=== PATIENT | male | born 1995 | race Caucasian/White ===

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

== ENCOUNTER 2017-06-03 20:24 | Emergency (ER) | payer OTHER ==
--- OUTSIDE RECORDS SUMMARY | 2017-06-03 20:58 | XMS REPORT ---
:1995 External Reference #:[id number] Author Organization [facility] Address [address] [place] [address] [place] [address] Phone [phone] Care Team Providers Name Role Phone Basilio Nielsen III, M.D. 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 Active Onset: 03/12/2012 Attention deficit hyperactivity Aníbal Charles M.D. Active disorder Onset: 03/05/2015 Non-alcoholic fatty liver Anbíal Charles M.D. Active Onset: 02/09/2017 Gastroesophageal reflux disease Basilio Nielsen III, M.D. Active Family History Date Family Member(s) Problem(s) Comments Father in 2001 from brain tumor Social History Type Date Description Comments Smoke-Free Home is smoke-free General Mother remarried. Mom, step dad, brother, sister, and cousin live at home Smoking Patient has never smoked Allergies, Adverse Reactions, Alerts Date Description Reaction Status Severity Comments 02/12/2008 No Drug Allergies active Medications Medication Date Status Form Strength Qnty SIG Indications Ordering Provider Azithromycin Hx Tablets 250mg 6tabs 2 today J20.9 Basilio Preston 018 - then Morales, 1\\day nestor ABREU M.D. 018 [address]op[address] Table[address] 40mg 30tabs 1 by R07.9 Naresh Sodium 018 mouth Sharkness, every C.P.N.P day K21.9 Onetouch Ultra 05/02/2017 Active Strips 100units use as R73.03 Naresh Blue directed Sharkness, C.P.N.P Metformin HCL ER 05/02/2017 Active Tablets ER 50 60tabs Take 1 R73.03 Naresh 24HR 0m tablet Sharkness, g with C.P.N.P dinner once daily for 2 weeks then increase to 2 tablets by mouth once daily at dinner True Metrix Blood 05/02/2017 Active Strips 100units please use Naresh Glucosetest to test Sharkness, Strips blood C.P.N.P glucose twice daily Dx=R73.03 True Metrix Go 05/02/2017 Active Kit w/ Use as R73.03 Naresh Blood Glucose De directed Sharkness, Meter vi C.P.N.P ce Truedraw Lancing 05/02/2017 Active Misc 1units Use as R73.03 Naresh Device directed Sharkness, C.P.N.P Vitamin D 04/29/2017 Active Capsules 20 30caps 1 by mouth Naresh 00 every day Sharkness, Un C.P.N.P it Metformin HCL ER 05/02/2017 - Hx Tablets ER 50 60tabs Please R73.03 Naresh (Mod) 05/02/2017 24HR 0m take 1 Sharkness, g tablet in C.P.N.P the evening once daily for 2 weeks and then increase to two tablets once daily in the evening Onetouch Delica 05/02/2017 - Hx Misc 30 100units Use as R73.03 Naresh Peoplesets Fine 30G 05/02/2017 G directed Sharkness, C.P.N.P Onetouch Ultra 05/02/2017 - Hx Kit w/ 1units use as R73.03 Naresh Mini 05/02/2017 De directed Sharkness, vi C.P.N.P ce Polyethylene 04/19/2017 - Hx Powder 33 527gm 4-5 K59.00 Henny Glycol 3350 04/26/2017 50 capfuls in Jeffery, D.O. NF 20 ounces of Gatorade today then 1 cupful in liquid daily for 7 days Cephalexin 02/28/2017 - Hx Capsules 50 30caps 1 tab 3 I88.9 Aníbal 03/10/2017 0m times a Sendek, g day for 10 M.D. days Econazole Nitrate 08/30/2016 - Hx Cream 1% 85gm apply B35.4 Basilio Y. 09/26/2016 topically Lambert, once or III, M.D. twice daily Methylphenidate 06/30/2016 - Hx Tablets ER 36 2 PO by F90.1 Aníbal HCL ER 09/26/2016 24HR mg mouth each Sendek, morning M.D. Sertraline HCL 06/30/2016 - Hx Tablets 50 1 by mouth Aníbal 09/26/2016 mg every day Sendek, M.D. Methylphenidate 05/02/2016 - Hx Tablets ER 54 30tabs 1 by mouth F90.1 Aníbal HCL ER 06/30/2016 mg every day Sendek, M.D. Amoxicillin/Clavu 04/08/2016 - Hx Tablets 87 20tabs 1 tablet L04.0 Naresh lanate Potassium 04/18/2016 5- twice Sharkness, 12 daily for C.P.N.P 5m 10 days g Lansoprazole 02/23/2016 - Hx Capsules 30 30caps Take One R07.9 Basilio Y. 05/11/2017 DR mg Capsule By Lambert, Mouth III, M.D. Every Day K21.9 Naproxen 10/05/2015 - Hx Tablets 500mg 30tabs 1 tablet M54.5 Naresh 10/12/2015 by mouth Sharkness, twice C.P.N.P daily with food Ciprodex 02/27/2015 - Hx Suspension 0.3-0.1 7.500ml 4 drops H60.8x Naresh 03/06/2015 % twice 1 Sharkness, daily for C.P.N.P 5 - 7 days Methylphenidate 02/01/2013 - Hx Tablets ER 36mg 60tabs 2 by F90.1 Aníbal HCL ER 05/02/2016 mouth Sendek, every day M.D. at in the morning Clindamycin/Benzo 02/01/2013 - Hx Gel 1-5% 50gm apply bid 706.1 Aníbal yl Peroxide 04/02/2013 to the pam Charles M.D. Naproxen 08/08/2012 - Hx Tablets 500mg 14tabs 1 po bid 959.7 Richard 08/17/2012 feliciano Pal M.D. Famotidine 08/08/2012 - Hx Tablets 20mg 60tabs 1 po bid 959.7 Richard 08/17/2012 Ren Pal Methylphenidate 11/17/2011 - Hx Tablets ER 54mg 30tabs 1 po qd 314.01 Aníbal HCL ER 02/01/2013 Ren Charles Lotrisone 04/26/2011 - Hx Cream 1-0.05% 45gm apply bid Aníbal 05/10/2011 to jie Charles M.D. [facility] Methylphenidate 04/22/2011 - Hx Tablets ER 36mg 30tabs 1 po qd 314.01 Aníbal HCL ER 11/17/2011 Ren Charles Methylphenidate 03/19/2011 - Hx Tablets ER 27mg 30tabs 1 po at Naresh HCL ER 04/22/2011 am Kole C.P.N.P Nexium 02/23/2011 - Hx Capsules DR 20mg 30caps 1 PO qd 530.81 Aníbal 02/23/2011 Ren Charles Omeprazole 02/23/2011 - Hx Capsules DR 20mg 30caps 1 PO qd 530.81 Aníbal 04/24/2011 Ren Charles Mentax 02/16/2009 - Hx Cream 1% 30gm apply bid 110.5 Aníbal 03/02/2009 to the natalie Charles M.D. Cefzil 05/18/2007 - Hx Suspension 250mg/5 200cc 2 TSP PO Shannan 05/28/2007 ML bid Kirill Umanzor.P.N.P. Keflex 02/13/2007 - Hx Tablets 500mg 20tabs 1 po bid 684 Shannan 02/23/2007 Noé C.P.N.P. Ibuprofen 02/13/2007 - Hx Suspension 100mg/5 240units 4 TSP PO 684 Shannan 02/23/2007 ML Q8H prn Noé, Fever C.P.N.P. Augmentin ES-600 04/04/2006 - Hx Suspension 600mg;4 150ml 1 and 1/2 382.9 Aníbal 04/14/2006 2.9mg/5 tsp bid Sendek, ML M.D. Zithromax 03/29/2006 - Hx Suspension 200mg/5 30ml 8 ml day 461.9 Aníbal 04/03/2006 ML 1 Sendek, M.D. 4 ml q d for days Vyvanse - Hx Capsules 70mg 1 capsule Unknown 11/28/2016 once daily Medications Administered in Office Medication Date Status Form Strength Qnty SIG Indications Ordering Provider TB Mary Test 11/12/18 Administered Injection Shannan Polly Noé, C.P.N.P. Immunizations CPT Code Status Date Vaccine Lot # [id number] Given 04/21/2017 Flu Inj Quadrivalent .5ml Preserve Free [id number] 88016 Given 01/20/2015 Flu Inj Quadrivalent .5ml Preserve Free [id number] 74053 Given 03/25/2014 Meningococcal A,C,Y,W135 (Menactra) Preservative [id number] Free 49479 Given 03/25/2014 Flu Mist Quadrivalent [id number] 34664 Given 10/29/2013 HPV 4 Gardasil 4 [id number] 07338 Given 03/18/2013 Flu Mist Quadrivalent [id number] 18756 Given 03/18/2013 HPV 4 Gardasil 4 [id number] 44406 Given 03/12/2012 HPV 4 Gardasil 4 [id number] 11588 Given 03/12/2012 Flu Vacc Nasal Mist Trivalent (FluMist) [id number] 78588 Given 02/23/2011 Flu Vacc Nasal Mist Trivalent (FluMist) [id number] 01972 Given 02/23/2011 Hepatitis A Vaccine Pediatric/Adolescent 2 Dose [id number] Schedule 47987 Given 02/17/2010 Flu Vacc Nasal Mist Trivalent (FluMist) [id number] 20948 Given 02/17/2010 Hepatitis A Vaccine Pediatric/Adolescent 2 Dose [id number] Schedule 36715 Given 02/16/2009 Meningococcal A,C,Y,W135 (Menactra) Preservative [id number] Free 15501 Given 02/16/2009 TdaP Immunization Age 7+ [id number] 22443 Given 02/16/2009 Flu Vacc Nasal Mist Trivalent (FluMist) [id number] 65813 Given 02/12/2008 Flu Vacc Nasal Mist Trivalent (FluMist) [id number] 43534 Given 02/12/2008 Varicella (Chicken Pox) Immunization [id number] 83583 Given 12/18/2001 Poliomyelitis Immunization 58641 Given 12/18/2001 MMR Virus Immunization 55300 Given 12/18/2001 DTaP Immunization under age 7 13381 Given 03/11/1999 DTaP & Hib Immunization 50182 Given 03/11/1999 Oral Poliovirus Immunization 39099 Given 11/12/1998 Varicella (Chicken Pox) Immunization 43518 Given 11/12/1998 MMR Virus Immunization 74330 Given 05/05/1998 DTaP Immunization under age 7 62508 Given 05/05/1998 Hib/Hep B Combination Vaccine 02282 Given 03/03/1998 Hib Immunization 79360 Given 03/03/1998 Poliomyelitis Immunization 66855 Given 03/03/1998 DTaP Immunization under age 7 23310 Given 01/05/1998 Hib/Hep B Combination Vaccine 44248 Given 01/05/1998 Poliomyelitis Immunization 92916 Given 01/05/1998 DTaP Immunization under age 7 87133 Given 1997 Hepatitis B Imm Age 0 to 19yr Vital Signs Date Vital Result Comment 05/19/2017 Weight 295.25 lb Weight in kg's 133.925 Weight Percentile >97th Body Temperature 98.3 F Heart Rate 100 /min BP Systolic 136 mmHg BP Diastolic 78 mmHg O2 % BldC Oximetry 98 % 05/02/2017 Height 69.75 inches 5'9.75" Height Percentile 52 % Weight 306.12 lb Weight in kg's 138.858 Weight Percentile >97th Heart Rate 69 /min BP Systolic 129 mmHg BP Diastolic 61 mmHg BMI (Body Mass Index) 44.2 kg/m2 Body Mass Index Percentile 99 % 04/21/2017 Height 69.5 inches 5'9.50" Height Percentile 49 % Weight 303.00 lb Weight in kg's 137.441 Weight Percentile >97th Heart Rate 84 /min BP Systolic 141 mmHg BP Diastolic 83 mmHg BMI (Body Mass Index) 44.1 kg/m2 Body Mass Index Percentile 99 % Right ear audiology results 20 db Left ear audiology results 20 db Left Visual Acuity Distance 20/20 Right Visual Acuity Distance 20/25-2 04/19/2017 Weight 309.38 lb Weight in kg's 140.333 Weight Percentile >97th Body Temperature 98.7 F Heart Rate 89 /min BP Systolic 138 mmHg BP Diastolic 82 mmHg 02/28/2017 Weight 299.00 lb Weight in kg's 135.626 Weight Percentile >97th Body Temperature 98.8 F 02/09/2017 Height 69 inches 5'9" Height Percentile 42 % Weight 299.00 lb Weight in kg's 135.626 Weight Percentile >97th Heart Rate 69 /min BP Systolic 131 mmHg BP Diastolic 51 mmHg BMI (Body Mass Index) 44.1 kg/m2 Body Mass Index Percentile 99 % 02/01/2017 Weight 302.00 lb Weight in kg's 136.987 Weight Percentile >97th Body Temperature 98.7 F 11/28/2016 Weight 290.00 lb Weight in kg's 131.544 09/26/2016 Weight 288.12 lb Weight in kg's 130.694 Weight Percentile >97th Body Temperature 99.1 F Heart Rate 112 /min O2 % BldC Oximetry 98 % 08/30/2016 Weight 186.00 lb Weight in kg's 84.370 Weight Percentile 87th Body Temperature 98.4 F 06/18/2016 Height 69 inches 5'9" Height Percentile 43 % Weight 287.00 lb w/clothes/no shoes Weight in kg's 130.183 Weight Percentile >97th Heart Rate 74 /min BP Systolic 144 mmHg BP Diastolic 79 mmHg Blood Pressure Percentile 98 % BMI (Body Mass Index) 42.4 kg/m2 Body Mass Index Percentile 99 % 06/07/2016 Weight 286.00 lb Weight in kg's 129.730 Weight Percentile >97th Body Temperature 98.5 F 05/30/2016 Height 69 inches 5'9" Height Percentile 43 % Weight 284.00 lb Weight in kg's 128.822 Weight Percentile >97th Heart Rate 71 /min BP Systolic 128 mmHg BP Diastolic 74 mmHg Blood Pressure Percentile 74 % BMI (Body Mass Index) 41.9 kg/m2 Body Mass Index Percentile 99 % 04/20/2016 Height 69.25 inches 5'9.25" Height Percentile 47 % Weight 281.00 lb Weight in kg's 127.462 Weight Percentile >97th Heart Rate 84 /min BP Systolic 144 mmHg BP Diastolic 80 mmHg Blood Pressure Percentile 98 % BMI (Body Mass Index) 41.2 kg/m2 Body Mass Index Percentile 99 % Right ear audiology results 20 db Left ear audiology results 20 db Left Visual Acuity Distance 20/25-1 Right Visual Acuity Distance 20/20 04/08/2016 Weight 286.31 lb Weight in kg's 129.871 Weight Percentile >97th Body Temperature 97.1 F 03/24/2016 Height 69.25 inches 5'9.25" Height Percentile 47 % Weight 282.38 lb Weight in kg's 128.085 Weight Percentile >97th Heart Rate 94 /min BP Systolic 137 mmHg BP Diastolic 77 mmHg Blood Pressure Percentile 93 % BMI (Body Mass Index) 41.4 kg/m2 Body Mass Index Percentile 99 % 02/23/2016 Height 69.25 inches 5'9.25" Height Percentile 48 % Weight 277.50 lb Weight in kg's 125.874 Weight Percentile >97th Heart Rate 108 /min BP Systolic 158 mmHg BP Diastolic 84 mmHg Blood Pressure Percentile 99 % BMI (Body Mass Index) 40.7 kg/m2 Body Mass Index Percentile 99 % 02/08/2016 Height 68.75 inches 5'8.75" Height Percentile 41 % Weight 280.25 lb Weight in kg's 127.121 Weight Percentile >97th Heart Rate 101 /min BP Systolic 144 mmHg BP Diastolic 90 mmHg Blood Pressure Percentile 98 % BMI (Body Mass Index) 41.7 kg/m2 Body Mass Index Percentile 99 % 10/21/2015 Height 68.75 inches 5'8.75" Height Percentile 42 % Weight 271.00 lb Weight in kg's 122.926 Weight Percentile >97th Heart Rate 73 /min BP Systolic 138 mmHg BP Diastolic 70 mmHg Blood Pressure Percentile 95 % BMI (Body Mass Index) 40.3 kg/m2 Body Mass Index Percentile 99 % 10/05/2015 Weight 267.00 lb Weight in kg's 121.111 Weight Percentile >97th Body Temperature 98.2 F Heart Rate 90 /min BP Systolic 142 mmHg BP Diastolic 87 mmHg Blood Pressure Percentile 0 % 07/07/2015 Weight 266.25 lb Weight in kg's 120.771 Weight Percentile >97th Body Temperature 98.8 F 04/07/2015 Height 69 inches 5'9" Height Percentile 48 % Weight 262.00 lb Weight in kg's 118.843 Weight Percentile >97th Heart Rate 77 /min BP Systolic 124 mmHg BP Diastolic 67 mmHg Blood Pressure Percentile 66 % BMI (Body Mass Index) 38.7 kg/m2 Body Mass Index Percentile 99 % 03/05/2015 Weight 262.50 lb Weight in kg's 119.070 Weight Percentile >97th Body Temperature 97.2 F Heart Rate 86 /min BP Systolic 148 mmHg BP Diastolic 86 mmHg Blood Pressure Percentile 0 % 02/27/2015 Weight 258.25 lb Weight in kg's 117.142 Weight Percentile >97th Body Temperature 97.6 F 01/20/2015 Height 68.25 inches 5'8.25" Height Percentile 39 % Weight 261.00 lb Weight in kg's 118.390 Weight Percentile >97th Heart Rate 88 /min BP Systolic 132 mmHg BP Diastolic 79 mmHg Blood Pressure Percentile 89 % BMI (Body Mass Index) 39.4 kg/m2 Body Mass Index Percentile 99 % 06/30/2014 Weight 245.00 lb Weight in kg's 111.132 Weight Percentile >97th Body Temperature 97.3 F Heart Rate 69 /min O2 % BldC Oximetry 99 % 06/26/2014 Height 68.25 inches 5'8.25" Height Percentile 43 % Weight 245.00 lb Weight in kg's 111.132 Weight Percentile >97th Heart Rate 71 /min BP Systolic 130 mmHg BP Diastolic 68 mmHg Blood Pressure Percentile 87 % BMI (Body Mass Index) 37.0 kg/m2 Body Mass Index Percentile 99 % 03/25/2014 Height 68 inches 5'8" Height Percentile 42 % Weight 261.00 lb Weight in kg's 118.390 Weight Percentile >97th Heart Rate 88 /min BP Systolic 123 mmHg BP Diastolic 70 mmHg Blood Pressure Percentile 71 % BMI (Body Mass Index) 39.7 kg/m2 Body Mass Index Percentile 99 % 10/29/2013 Weight 245.00 lb Weight in kg's 111.132 Weight Percentile >97th Body Temperature 98.0 F 07/30/2013 Weight 226.00 lb Weight in kg's 102.51 Weight Percentile >97th Body Temperature 98.5 F Heart Rate 84 /min O2 sats BP Systolic 128 mmHg BP Diastolic 72 mmHg Blood Pressure Percentile 0 % 07/11/2013 Weight 225.00 lb Weight in kg's 102.06 Weight Percentile >97th Body Temperature 98.9 F Heart Rate 100 /min O2 % BldC Oximetry 97 % 03/18/2013 Height 66.25 inches 5'6.25" Height Percentile 35 % Weight 205.50 lb Weight in kg's 93.215 Weight Percentile >97th Heart Rate 90 /min BP Systolic 125 mmHg BP Diastolic 68 mmHg Blood Pressure Percentile 85 % BMI (Body Mass Index) 32.9 kg/m2 Body Mass Index Percentile 98 % 02/01/2013 Height 66 inches 5'6" Height Percentile 34 % Weight 203.00 lb Weight in kg's 92.081 Weight Percentile >97th Heart Rate 80 /min BP Systolic 132 mmHg BP Diastolic 72 mmHg Blood Pressure Percentile 95 % BMI (Body Mass Index) 32.8 kg/m2 Body Mass Index Percentile 98 % 01/15/2013 Weight 201.00 lb Weight in kg's 91.174 Weight Percentile >97th Body Temperature 97.0 F 10/17/2012 Height 65.75 inches 5'5.75" Height Percentile 37 % Weight 206.00 lb Weight in kg's 93.442 Weight Percentile >97th Heart Rate 76 /min BP Systolic 136 mmHg BP Diastolic 84 mmHg Blood Pressure Percentile 0 % BMI (Body Mass Index) 33.5 kg/m2 Body Mass Index Percentile 99 % 08/08/2012 Weight 197.50 lb Weight in kg's 89.586 Weight Percentile >97th Body Temperature 97.8 F Heart Rate 64 /min Blood Pressure Percentile 0 % 03/12/2012 Height 64 inches 5'4" Height Percentile 33 % Weight 182.50 lb Weight in kg's 82.782 Weight Percentile >97th Heart Rate 76 /min BP Systolic 120 mmHg BP Diastolic 58 mmHg Blood Pressure Percentile 79 % BMI (Body Mass Index) 31.3 kg/m2 Body Mass Index Percentile 98 % 01/19/2012 Weight 180.00 lb Weight in kg's 81.648 Weight Percentile >97th Body Temperature 97.7 F Blood Pressure Percentile 0 % 11/17/2011 Height 64 inches 5'4" Height Percentile 43 % Weight 178.00 lb Weight in kg's 80.741 Weight Percentile >97th Body Temperature 98.8 F Heart Rate 72 /min Respiratory Rate 20 /min BP Systolic 130 mmHg BP Diastolic 60 mmHg Blood Pressure Percentile 96 % BMI (Body Mass Index) 30.6 kg/m2 Body Mass Index Percentile 98 % 09/13/2011 Weight 174.00 lb Weight in kg's 78.926 Weight Percentile 97th Body Temperature 98.1 F Heart Rate 88 /min BP Systolic 122 mmHg BP Diastolic 68 mmHg Blood Pressure Percentile 0 % 05/25/2011 Weight 167.00 lb Weight in kg's 75.751 Weight Percentile 97th BP Systolic 130 mmHg left arm BP Diastolic 72 mmHg left arm Blood Pressure Percentile 0 % BP Systolic Recheck 130 mmHg right arm BP Diastolic Recheck 70 mmHg right arm 04/22/2011 Height 62.5 inches 5'2.50" Height Percentile 46 % Weight 168.50 lb Weight in kg's 76.432 Weight Percentile >97th Heart Rate 80 /min BP Systolic 138 mmHg BP Diastolic 60 mmHg Blood Pressure Percentile 99 % BMI (Body Mass Index) 30.3 kg/m2 Body Mass Index Percentile 98 % 02/23/2011 Height 61.75 inches 5'1.75" Height Percentile 43 % Weight 166.50 lb Weight in kg's 75.524 Weight Percentile >97th Heart Rate 88 /min BP Systolic 132 mmHg BP Diastolic 72 mmHg Blood Pressure Percentile 98 % BMI (Body Mass Index) 30.7 kg/m2 Body Mass Index Percentile 98 % 07/08/2010 Weight 151.00 lb Weight in kg's 68.494 Weight Percentile 97th Body Temperature 98.3 F BP Systolic 108 mmHg BP Diastolic 70 mmHg Blood Pressure Percentile 0 % 07/03/2010 Weight 148.50 lb Weight in kg's 67.360 Weight Percentile 96th Body Temperature 97.1 F Blood Pressure Percentile 0 % 02/17/2010 Height 59.25 inches 4'11.25" Height Percentile 48 % Weight 142.00 lb Weight in kg's 64.411 Weight Percentile 96th Heart Rate 80 /min BP Systolic 104 mmHg BP Diastolic 66 mmHg Blood Pressure Percentile 39 % BMI (Body Mass Index) 28.4 kg/m2 Body Mass Index Percentile 98 % 2009 Weight 139.50 lb Weight in kg's 63.277 Weight Percentile 97th Body Temperature 97.5 F Blood Pressure Percentile 0 % 02/16/2009 Height 57 inches 4'9" Height Percentile 49 % Weight 124.00 lb Weight in kg's 56.246 Weight Percentile >97th Heart Rate 80 /min BP Systolic 132 mmHg BP Diastolic 64 mmHg Blood Pressure Percentile 99 % BMI (Body Mass Index) 26.8 kg/m2 Body Mass Index Percentile 99 % 02/12/2008 Height 54.25 inches 4'6.25" Height Percentile 38 % Weight 109.00 lb Weight in kg's 49.442 Weight Percentile >97th Heart Rate 100 /min BP Systolic 120 mmHg BP Diastolic 60 mmHg BMI (Body Mass Index) 26.0 kg/m2 Body Mass Index Percentile 97 % 05/16/2007 Weight 95.00 lb Weight in kg's 43.092 Weight Percentile >95th Body Temperature 96.2 F 02/13/2007 Weight 93.00 lb Weight in kg's 42.185 Weight Percentile >95th Body Temperature 97.4 F 12/07/2006 Height 51 inches 4'3" Height Percentile 24 % Weight 87.00 lb Weight in kg's 39.463 Weight Percentile >95th Heart Rate 100 /min BP Systolic 116 mmHg BP Diastolic 60 mmHg BMI (Body Mass Index) 23.5 kg/m2 Body Mass Index Percentile 95 % 04/04/2006 Weight 78.00 lb Weight in kg's 35.381 Weight Percentile >95th Body Temperature 98.8 F 03/29/2006 Weight 78.00 lb Weight in kg's 35.381 Weight Percentile >95th Body Temperature 98.4 F Results Test Date Test Result H/L Range Note CBC Auto Diff 04/26/2017 White Blood Count 10.0 10^3/uL 3.5-10.8 Red Blood Count 5.67 10^6/uL High 4.0-5.4 Hemoglobin 15.5 g/dL 14.0-18.0 Hematocrit 47 % 42-52 Mean Corpuscular Volume 82 fL 80-94 Mean Corpuscular Hemoglobin 27 pg 27-31 Mean Corpuscular HGB Conc 33 g/dL 31-36 Red Cell Distribution Width 14 % 10.5-15 Platelet Count 264 10^3/uL 150-450 Mean Platelet Volume 9 um3 7.4-10.4 Abs Neutrophils 6.0 10^3/uL 1.5-7.7 Abs Lymphocytes 2.9 10^3/uL 1.0-4.8 Abs Monocytes 0.8 10^3/uL 0-0.8 Abs Eosinophils 0.2 10^3/uL 0-0.6 Abs Basophils 0 10^3/uL 0-0.2 Abs Nucleated RBC 0 10^3/uL Granulocyte % 60.4 % 38-83 Lymphocyte % 29.2 % 25-47 Monocyte % 7.6 % 1-9 Eosinophil % 2.4 % 0-6 Basophil % 0.4 % 0-2 Nucleated Red Blood Cells % 0 Comp Metabolic Panel 04/26/2017 Chloride 102 mmol/L 101-111 Co2 Carbon Dioxide 27 mmol/L 22-32 Glucose 105 mg/dL High 70-100 Blood Urea Nitrogen 13 mg/dL 6-24 Creatinine 0.65 mg/dL Low 0.67-1.17 BUN/Creatinine Ratio 20.0 8-20 Calcium 9.7 mg/dL 8.6-10.3 Total Protein 6.7 g/dL 6.4-8.9 Albumin 4.2 g/dL 3.2-5.2 Globulin 2.5 g/dL 2-4 Albumin/Globulin Ratio 1.7 1-3 Total Bilirubin 0.60 mg/dL 0.2-1.0 Alkaline Phosphatase 100 U/L 34-104 Alt 51 U/L 7-52 Ast 31 U/L 13-39 Egfr Non- 158.3 >60 Egfr 203.5 >60 1 Sodium 136 mmol/L 133-145 Potassium 4.4 mmol/L 3.5-5.0 Anion Gap 7 mmol/L 2-11 Laboratory test finding 04/26/2017 Hemoglobin A1c (Glyco HGB) 6.3 % High 4.0-5.6 2 Insulin Level 41.2 mcIU/mL 2.6 - 24.9 3 Lipid Profile (Trig/Chol/HDL) 04/26/2017 Triglycerides 106 mg/dL 4 Cholesterol 137 mg/dL 5 HDL Cholesterol 32.8 mg/dL 6 LDL Cholesterol 83 mg/dL 7 Laboratory test finding 04/26/2017 TSH (Thyroid Stim Horm) 2.21 mcIU/mL 0.34-5.60 Vitamin D Total 25(Oh) 19.2 ng/mL Low 20-50 Laboratory test 03/04/2017 D Dimer Quantitative < 200 ng/mL Less Than 230 8 finding CBC Auto Diff 03/04/2017 White Blood Count 7.7 10^3/uL 3.5-10.8 Red Blood Count 5.51 10^6/uL High 4.0-5.4 Hemoglobin 15.2 g/dL 14.0-18.0 Hematocrit 45 % 42-52 Mean Corpuscular Volume 81 fL 80-94 Mean Corpuscular Hemoglobin 28 pg 27-31 Mean Corpuscular HGB Conc 34 g/dL 31-36 Red Cell Distribution Width 14 % 10.5-15 Platelet Count 252 10^3/uL 150-450 Mean Platelet Volume 9 um3 7.4-10.4 Abs Neutrophils 4.5 10^3/uL 1.5-7.7 Abs Lymphocytes 2.2 10^3/uL 1.0-4.8 Abs Monocytes 0.8 10^3/uL 0-0.8 Abs Eosinophils 0.2 10^3/uL 0-0.6 Abs Basophils 0 10^3/uL 0-0.2 Abs Nucleated RBC 0 10^3/uL Granulocyte % 58.6 % 38-83 Lymphocyte % 28.2 % 25-47 Monocyte % 10.7 % High 1-9 Eosinophil % 2.0 % 0-6 Basophil % 0.5 % 0-2 Nucleated Red Blood Cells % 0.1 Laboratory test finding 03/04/2017 Partial Thrombo Time PTT 29.7 seconds 26.0-36.3 Inr/Protime 03/04/2017 Inr 1.03 0.89-1.11 Laboratory test finding 03/04/2017 B-Type Natriuretic 17 pg/mL 9 Peptide BNP CKMB 03/04/2017 CKMB ng/mL 4.9 ng/mL 0.6-6.3 Laboratory test finding 03/04/2017 Magnesium 2.0 mg/dL 1.9-2.7 Creatine Kinase(CK) 201 U/L 10-223 Troponin-I (TnI) 0.03 ng/mL <0.04 Myoglobin 44.0 ng/mL 17.4-105.7 Comp Metabolic Panel 03/04/2017 Sodium 134 mmol/L 133-145 Potassium 3.7 mmol/L 3.5-5.0 Chloride 103 mmol/L 101-111 Co2 Carbon Dioxide 24 mmol/L 22-32 Anion Gap 7 mmol/L 2-11 Glucose 129 mg/dL High 70-100 Blood Urea Nitrogen 13 mg/dL 6-24 Creatinine 0.62 mg/dL Low 0.67-1.17 BUN/Creatinine Ratio 21.0 High 8-20 Calcium 9.7 mg/dL 8.6-10.3 Total Protein 7.2 g/dL 6.4-8.9 Albumin 4.4 g/dL 3.2-5.2 Globulin 2.8 g/dL 2-4 Albumin/Globulin Ratio 1.6 1-3 Total Bilirubin 0.40 mg/dL 0.2-1.0 Alkaline Phosphatase 91 U/L 34-104 Alt 39 U/L 7-52 Ast 26 U/L 13-39 Egfr Non- 167.1 >60 Egfr 214.9 >60 10 Laboratory test finding 03/04/2017 Lactic Acid 1.5 mmol/L 0.5-2.0 11 Laboratory test finding 03/04/2017 Troponin-I (TnI) 0.04 ng/mL High < 0.04 12 Xray 02/09/2017 Right clavicle negative Laboratory test finding 09/26/2016 TSH (Thyroid Stim 3.14 mcIU/mL 0.34- 5.60 Horm) CKMB 09/26/2016 CKMB ng/mL 4.4 ng/mL 0.6-6.3 CBC Auto Diff 09/26/2016 White Blood Count 10.5 10^3/uL 3.5-10.8 Red Blood Count 5.50 10^6/uL High 4.0-5.4 Hemoglobin 14.7 g/dL 14.0-18.0 Hematocrit 44 % 42-52 Mean Corpuscular Volume 80 fL 80-94 Mean Corpuscular Hemoglobin 27 pg 27-31 Mean Corpuscular HGB Conc 33 g/dL 31-36 Red Cell Distribution Width 13 % 10.5-15 Platelet Count 275 10^3/uL 150-450 Mean Platelet Volume 9 um3 7.4-10.4 Abs Neutrophils 5.8 10^3/uL 1.5-7.7 Abs Lymphocytes 3.5 10^3/uL 1.0-4.8 Abs Monocytes 1.1 10^3/uL High 0-0.8 Abs Eosinophils 0.1 10^3/uL 0-0.6 Abs Basophils 0.1 10^3/uL 0-0.2 Abs Nucleated RBC 0.02 10^3/uL Granulocyte % 54.9 % 38-83 Lymphocyte % 32.8 % 25-47 Monocyte % 10.4 % High 1-9 Eosinophil % 1.3 % 0-6 Basophil % 0.6 % 0-2 Nucleated Red Blood Cells % 0.2 Inr/Protime 09/26/2016 Inr 0.98 0.89-1.11 Laboratory test finding 09/26/2016 Partial Thrombo Time 32.9 seconds 26.0 -36.3 PTT D Dimer Quantitative < 200 ng/mL Less Than 230 13 B-Type Natriuretic Peptide BNP 28 pg/mL 14 Lactic Acid 1.4 mmol/L 0.5-2.0 15 Urinalysis Profile 09/26/2016 Urine Color Yellow Urine Appearance Cloudy Urine Specific Terrell 1.025 1.010-1.030 Urine pH 8.0 5-9 Urine Urobilinogen Negative Negative Urine Ketones Negative Negative Urine Protein 1+(30 mg/dL) Negative Urine Leukocytes Negative Negative Urine Blood Negative Negative Urine Nitrite Negative Negative Urine Bilirubin 1+ Negative Urine Glucose Negative Negative Urine White Blood Cell Absent Absent Urine Red Blood Cell Absent Absent Urine Bacteria Absent Absent Laboratory test finding 09/26/2016 Magnesium 2.0 mg/dL 1.9-2.7 Lipase 22 U/L 11.0-82.0 Creatine Kinase(CK) 250 U/L High 10-223 C Reactive Protein 2.27 mg/L < 5.00 16 Troponin-I (TnI) 0.01 ng/mL <0.04 17 Comp Metabolic Panel 09/26/2016 Sodium 138 mmol/L 133-145 Potassium 3.6 mmol/L 3.5-5.0 Chloride 104 mmol/L 101-111 Co2 Carbon Dioxide 25 mmol/L 22-32 Anion Gap 9 mmol/L 2-11 Glucose 97 mg/dL 70-100 Blood Urea Nitrogen 11 mg/dL 6-24 Creatinine 0.61 mg/dL Low 0.67-1.17 BUN/Creatinine Ratio 18.0 8-20 Calcium 9.1 mg/dL 8.6-10.3 Total Protein 6.9 g/dL 6.4-8.9 Albumin 4.2 g/dL 3.2-5.2 Globulin 2.7 g/dL 2-4 Albumin/Globulin Ratio 1.6 1-3 Total Bilirubin 0.30 mg/dL 0.2-1.0 Alkaline Phosphatase 109 U/L High 34-104 Alt 44 U/L 7-52 Ast 26 U/L 13-39 Egfr Non- 172.2 >60 Egfr 221.4 >60 18 CBC Auto Diff 06/23/2016 White Blood Count 10.4 10^3/uL 3.5-10.8 Red Blood Count 5.82 10^6/uL High 4.0-5.4 Hemoglobin 15.7 g/dL 14.0-18.0 Hematocrit 47 % 42-52 Mean Corpuscular Volume 81 fL 80-94 Mean Corpuscular Hemoglobin 27 pg 27-31 Mean Corpuscular HGB Conc 33 g/dL 31-36 Red Cell Distribution Width 14 % 10.5-15 Platelet Count 257 10^3/uL 150-450 Mean Platelet Volume 9 um3 7.4-10.4 Abs Neutrophils 6.4 10^3/uL 1.5-7.7 Abs Lymphocytes 2.8 10^3/uL 1.0-4.8 Abs Monocytes 0.9 10^3/uL High 0-0.8 Abs Eosinophils 0.2 10^3/uL 0-0.6 Abs Basophils 0.1 10^3/uL 0-0.2 Abs Nucleated RBC 0.01 10^3/uL Granulocyte % 62.0 % 38-83 Lymphocyte % 26.7 % 25-47 Monocyte % 8.5 % 1-9 Eosinophil % 1.7 % 0-6 Basophil % 1.1 % 0-2 Nucleated Red Blood Cells % 0.1 Inr/Protime 06/23/2016 Inr 1.04 0.89-1.11 Laboratory test finding 06/23/2016 Partial Thrombo Time 30.7 seconds 26.0 -36.3 PTT Lactic Acid 1.6 mmol/L 0.5-2.0 19 Comp Metabolic Panel 06/23/2016 Sodium 137 mmol/L 133-145 Chloride 102 mmol/L 101-111 Co2 Carbon Dioxide 27 mmol/L 22-32 Glucose 99 mg/dL 70-100 Blood Urea Nitrogen 11 mg/dL 6-24 Creatinine 0.65 mg/dL Low 0.67-1.17 BUN/Creatinine Ratio 16.9 8-20 Calcium 9.6 mg/dL 8.6-10.3 Total Protein 7.4 g/dL 6.4-8.9 Albumin 4.4 g/dL 3.2-5.2 Globulin 3.0 g/dL 2-4 Albumin/Globulin Ratio 1.5 1-3 Total Bilirubin 0.40 mg/dL 0.2-1.0 Alkaline Phosphatase 103 U/L 34-104 Alt 52 U/L 7-52 Egfr Non- 160.0 >60 Egfr 205.8 >60 20 Potassium 3.9 mmol/L 3.5-5.0 Anion Gap 8 mmol/L 2-11 Ast 36 U/L 13-39 Lipid Profile (Trig/Chol/HDL) 06/23/2016 Triglycerides 114 mg/dL 21 Cholesterol 141 mg/dL 22 HDL Cholesterol 33.0 mg/dL 23 LDL Cholesterol 85 mg/dL 24 Laboratory test finding 06/23/2016 Troponin-I (TnI) 0.01 ng/mL <0.04 25 Laboratory test finding 06/07/2016 .Strep A, Rapid Neg .Flu Test in house Neg Laboratory test finding 04/29/2016 Potassium Redraw 3.9 mmol/L 3.5-5.0 Ast Redraw 31 U/L 13-39 CBC Auto Diff 03/21/2016 White Blood Count 10.0 10^3/uL 3.5-10.8 Red Blood Count 5.64 10^6/uL High 4.0-5.4 Hemoglobin 15.5 g/dL 14.0-18.0 Hematocrit 46 % 42-52 Mean Corpuscular Volume 81 fL 80-94 Mean Corpuscular Hemoglobin 28 pg 27-31 Mean Corpuscular HGB Conc 34 g/dL 31-36 Red Cell Distribution Width 13 % 10.5-15 Platelet Count 286 10^3/uL 150-450 Mean Platelet Volume 8 um3 7.4-10.4 Abs Neutrophils 6.2 10^3/uL 1.5-7.7 Abs Lymphocytes 2.8 10^3/uL 1.0-4.8 Abs Monocytes 0.8 10^3/uL 0-0.8 Abs Eosinophils 0.1 10^3/uL 0-0.6 Abs Basophils 0.1 10^3/uL 0-0.2 Abs Nucleated RBC 0.01 10^3/uL Granulocyte % 62.1 % 38-83 Lymphocyte % 28.1 % 25-47 Monocyte % 7.6 % 1-9 Eosinophil % 1.5 % 0-6 Basophil % 0.7 % 0-2 Nucleated Red Blood Cells % 0.1 Urinalysis Profile 03/21/2016 Urine Color Straw Urine Appearance Clear Urine Specific Terrell 1.009 Low 1.010-1.030 Urine pH 7.0 5-9 Urine Urobilinogen Negative Negative Urine Ketones Negative Negative Urine Protein Negative Negative Urine Leukocytes Negative Negative Urine Blood Negative Negative Urine Nitrite Negative Negative Urine Bilirubin Negative Negative Urine Glucose Negative Negative Urine Drug SCR ED 03/21/2016 Amphetamine Ur Screen None Detected None Detect & Pain [facility] Barbiturates Urine Screen None Detected None Detect Benzodiazepine Urine Screen None Detected None Detect Urine Cannabinoids Screen None Detected None Detect Urine Cocaine Screen None Detected None Detect Urine Opiates Screen None Detected None Detect Urine Phencyclidine Screen None Detected None Detect 26 Comp Metabolic Panel 03/21/2016 Sodium 138 mmol/L 133-145 Potassium 3.6 mmol/L 3.5-5.0 Chloride 104 mmol/L 101-111 Co2 Carbon Dioxide 24 mmol/L 22-32 Anion Gap 10 mmol/L 2-11 Glucose 87 mg/dL 70-100 Blood Urea Nitrogen 13 mg/dL 6-24 Creatinine 0.63 mg/dL Low 0.67-1.17 BUN/Creatinine Ratio 20.6 High 8-20 Calcium 9.2 mg/dL 8.6-10.3 Total Protein 7.2 g/dL 6.4-8.9 Albumin 4.4 g/dL 3.2-5.2 Globulin 2.8 g/dL 2-4 Albumin/Globulin Ratio 1.6 1-3 Total Bilirubin 0.40 mg/dL 0.2-1.0 Alkaline Phosphatase 89 U/L 34-104 Alt 45 U/L 7-52 Ast 28 U/L 13-39 Egfr Non- 165.9 >60 Egfr 213.3 >60 27 Laboratory test finding 03/21/2016 TSH (Thyroid Stim Horm) 1.96 mcIU/mL 0.34-5.60 Acetaminophen < 15 g/mL 28 Alcohol < 10 mg/dL <10 Salicylate < 2.50 mg/dL <30 CBC Auto Diff 02/13/2016 White Blood Count 10.6 10^3/uL 3.5-10.8 Red Blood Count 5.51 10^6/uL High 4.0-5.4 Hemoglobin 15.0 g/dL 14.0-18.0 Hematocrit 45 % 42-52 Mean Corpuscular Volume 82 fL 80-94 Mean Corpuscular Hemoglobin 27 pg 27-31 Mean Corpuscular HGB Conc 33 g/dL 31-36 Red Cell Distribution Width 14 % 10.5-15 Platelet Count 298 10^3/uL 150-450 Mean Platelet Volume 9 um3 7.4-10.4 Abs Neutrophils 6.7 10^3/uL 1.5-7.7 Abs Lymphocytes 2.9 10^3/uL 1.0-4.8 Abs Monocytes 0.8 10^3/uL 0-0.8 Abs Eosinophils 0.1 10^3/uL 0-0.6 Abs Basophils 0.1 10^3/uL 0-0.2 Abs Nucleated RBC 0 10^3/uL Granulocyte % 63.5 % 38-83 Lymphocyte % 27.2 % 25-47 Monocyte % 7.1 % 1-9 Eosinophil % 1.3 % 0-6 Basophil % 0.9 % 0-2 Nucleated Red Blood Cells % 0 Comp Metabolic Panel 02/13/2016 Sodium 135 mmol/L 133-145 Potassium 3.7 mmol/L 3.5-5.0 Chloride 101 mmol/L 101-111 Co2 Carbon Dioxide 25 mmol/L 22-32 Anion Gap 9 mmol/L 2-11 Glucose 84 mg/dL 70-100 Blood Urea Nitrogen 13 mg/dL 6-24 Creatinine 0.64 mg/dL Low 0.67-1.17 BUN/Creatinine Ratio 20.3 High 8-20 Calcium 9.9 mg/dL 8.6-10.3 Total Protein 7.1 g/dL 6.4-8.9 Albumin 4.4 g/dL 3.2-5.2 Globulin 2.7 g/dL 2-4 Albumin/Globulin Ratio 1.6 1-3 Total Bilirubin 0.30 mg/dL 0.2-1.0 Alkaline Phosphatase 81 U/L 34-104 Alt 62 U/L High 7-52 Ast 37 U/L 13-39 Egfr Non- 162.9 >60 Egfr 209.5 >60 29 Laboratory test finding 02/13/2016 Troponin-I (TnI) 0.01 ng/mL <0.03 30 Magnesium 1.9 mg/dL 1.9-2.7 CBC Auto Diff 12/21/2015 White Blood Count 10.2 10^3/uL 3.5-10.8 Red Blood Count 5.38 10^6/uL 4.0-5.4 Hemoglobin 14.6 g/dL 14.0-18.0 Hematocrit 44 % 42-52 Mean Corpuscular Volume 82 fL 80-94 Mean Corpuscular Hemoglobin 27 pg 27-31 Mean Corpuscular HGB Conc 33 g/dL 31-36 Red Cell Distribution Width 14 % 10.5-15 Platelet Count 267 10^3/uL 150-450 Mean Platelet Volume 10 um3 7.4-10.4 Abs Neutrophils 6.1 10^3/uL 1.5-7.7 Abs Lymphocytes 3.0 10^3/uL 1.0-4.8 Abs Monocytes 0.9 10^3/uL High 0-0.8 Abs Eosinophils 0.2 10^3/uL 0-0.6 Abs Basophils 0.1 10^3/uL 0-0.2 Abs Nucleated RBC 0.02 10^3/uL Granulocyte % 60.0 % 38-83 Lymphocyte % 29.1 % 25-47 Monocyte % 8.7 % 1-9 Eosinophil % 1.5 % 0-6 Basophil % 0.7 % 0-2 Nucleated Red Blood Cells % 0.2 Laboratory test finding 12/21/2015 Troponin-I (TnI) 0.01 ng/mL <0.03 31 Comp Metabolic Panel 12/21/2015 Sodium 137 mmol/L 133-145 Potassium 3.7 mmol/L 3.5-5.0 Chloride 104 mmol/L 101-111 Co2 Carbon Dioxide 26 mmol/L 22-32 Anion Gap 7 mmol/L 2-11 Glucose 93 mg/dL 70-100 Blood Urea Nitrogen 12 mg/dL 6-24 Creatinine 0.64 mg/dL Low 0.67-1.17 BUN/Creatinine Ratio 18.8 8-20 Calcium 9.8 mg/dL 8.6-10.3 Total Protein 7.0 g/dL 6.4-8.9 Albumin 4.1 g/dL 3.2-5.2 Globulin 2.9 g/dL 2-4 Albumin/Globulin Ratio 1.4 1-3 Total Bilirubin 0.30 mg/dL 0.2-1.0 Alkaline Phosphatase 86 U/L 34-104 Alt 34 U/L 7-52 Ast 24 U/L 13-39 Egfr Non- 162.9 >60 Egfr 209.5 >60 32 Laboratory test finding 12/21/2015 Creatine Kinase(CK) 173 U/L 10-223 CKMB 12/21/2015 CKMB ng/mL 4.3 ng/mL 0.6-6.3 Laboratory test finding 12/21/2015 Lactic Acid 0.7 mmol/L 0.5-2.0 33 Urinalysis Profile 03/07/2015 Urine Color Yellow Urine Appearance Cloudy Urine Specific Terrell 1.020 1.010-1.030 Urine pH 7.0 5-9 Urine Urobilinogen Positive Negative Urine Ketones Negative Negative Urine Protein Negative Negative Urine Leukocytes Negative Negative Urine Blood Negative Negative Urine Nitrite Negative Negative Urine Bilirubin Negative Negative Urine Glucose Negative Negative Comp Metabolic Panel 03/07/2015 Sodium 136 mmol/L 133-145 Chloride 103 mmol/L 101-111 Co2 Carbon Dioxide 26 mmol/L 22-32 Glucose 96 mg/dL 70-100 Blood Urea Nitrogen 11 mg/dL 6-24 Creatinine 0.63 mg/dL Low 0.67-1.17 BUN/Creatinine Ratio 17.5 8-20 Calcium 9.6 mg/dL 8.6-10.3 Total Protein 7.1 g/dL 6.4-8.9 Albumin 4.5 g/dL 3.2-5.2 Globulin 2.6 g/dL 2-4 Albumin/Globulin Ratio 1.7 1-3 Total Bilirubin 0.30 mg/dL 0.2-1.0 Alkaline Phosphatase 122 U/L High 34-104 Alt 37 U/L 7-52 Potassium TNP mmol/L 3.5-5.0 34 Anion Gap TNP mmol/L 2-11 Ast TNP U/L 13-39 35 Laboratory test finding 03/07/2015 C Reactive Protein 1.85 mg/L < 5.00 36 CBC Auto Diff 03/07/2015 White Blood Count 9.1 10^3/uL 4.8-10.8 Red Blood Count 5.66 10^6/uL High 4.0-5.4 Hemoglobin 15.5 g/dL 14.0-18.0 Hematocrit 47 % 42-52 Mean Corpuscular Volume 83 fL 80-94 Mean Corpuscular Hemoglobin 28 pg 27-31 Mean Corpuscular HGB Conc 33 g/dL 31-36 Red Cell Distribution Width 14 % 10.5-15 Platelet Count 286 10^3/uL 150-450 Mean Platelet Volume 9 um3 7.4-10.4 Abs Neutrophils 5.3 10^3/uL 1.5-7.7 Abs Lymphocytes 2.6 10^3/uL 1.0-4.8 Abs Monocytes 0.8 10^3/uL 0-0.8 Abs Eosinophils 0.3 10^3/uL 0-0.6 Abs Basophils 0.1 10^3/uL 0-0.2 Abs Nucleated RBC 0.01 10^3/uL Granulocyte % 58.8 % 38-83 Lymphocyte % 28.6 % 25-47 Monocyte % 9.1 % High 1-9 Eosinophil % 2.9 % 0-6 Basophil % 0.6 % 0-2 Nucleated Red Blood Cells % 0.1 Laboratory test finding 03/07/2015 Erythrocyte Sed Rate 11 mm/Hr 0-14 CBC Auto Diff 03/04/2015 White Blood Count 11.7 10^3/uL High 4.8-10.8 Red Blood Count 5.36 10^6/uL 4.0-5.4 Hemoglobin 14.8 g/dL 14.0-18.0 Hematocrit 45 % 42-52 Mean Corpuscular Volume 83 fL 80-94 Mean Corpuscular Hemoglobin 28 pg 27-31 Mean Corpuscular HGB Conc 33 g/dL 31-36 Red Cell Distribution Width 14 % 10.5-15 Platelet Count 265 10^3/uL 150-450 Mean Platelet Volume 9 um3 7.4-10.4 Abs Neutrophils 7.5 10^3/uL 1.5-7.7 Abs Lymphocytes 3.2 10^3/uL 1.0-4.8 Abs Monocytes 0.8 10^3/uL 0-0.8 Abs Eosinophils 0.2 10^3/uL 0-0.6 Abs Basophils 0.1 10^3/uL 0-0.2 Abs Nucleated RBC 0.01 10^3/uL Granulocyte % 64.0 % 38-83 Lymphocyte % 27.0 % 25-47 Monocyte % 6.8 % 1-9 Eosinophil % 1.6 % 0-6 Basophil % 0.6 % 0-2 Nucleated Red Blood Cells % 0.1 Comp Metabolic Panel 03/04/2015 Sodium 137 mmol/L 133-145 Potassium 3.7 mmol/L 3.5-5.0 Chloride 103 mmol/L 101-111 Co2 Carbon Dioxide 26 mmol/L 22-32 Anion Gap 8 mmol/L 2-11 Glucose 89 mg/dL 70-100 Blood Urea Nitrogen 10 mg/dL 6-24 Creatinine 0.60 mg/dL Low 0.67-1.17 BUN/Creatinine Ratio 16.7 8-20 Calcium 9.4 mg/dL 8.6-10.3 Total Protein 7.0 g/dL 6.4-8.9 Albumin 4.4 g/dL 3.2-5.2 Globulin 2.6 g/dL 2-4 Albumin/Globulin Ratio 1.7 1-3 Total Bilirubin 0.30 mg/dL 0.2-1.0 Alkaline Phosphatase 119 U/L High 34-104 Alt 38 U/L 7-52 Ast 39 U/L 13-39 Laboratory test finding 03/04/2015 Lipase 20 U/L 11.0-82.0 Urinalysis Profile 03/04/2015 Urine Color Yellow Urine Appearance Clear Urine Specific Terrell 1.024 1.010-1.030 Urine pH 6.0 5-9 Urine Urobilinogen Negative Negative Urine Ketones Negative Negative Urine Protein Negative Negative Urine Leukocytes Negative Negative Urine Blood Negative Negative Urine Nitrite Negative Negative Urine Bilirubin Negative Negative Urine Glucose Negative Negative Laboratory test finding 06/26/2014 Throat Culture (Overnight) neg Throat Culture Quick Strep neg CBC Auto Diff 05/03/2014 White Blood Count 8.2 10^3/uL 4.8-10.8 Red Blood Count 5.24 10^6/uL 4.0-5.4 Hemoglobin 14.5 g/dL 14.0-18.0 Hematocrit 43 % 42-52 Mean Corpuscular Volume 82 fL 80-94 Mean Corpuscular Hemoglobin 28 pg 27-31 Mean Corpuscular HGB Conc 34 g/dL 31-36 Red Cell Distribution Width 14 % 10.5-15 Platelet Count 226 10^3/uL 150-450 Mean Platelet Volume 9 um3 7.4-10.4 Abs Neutrophils 4.7 10^3/uL 1.5-7.7 Abs Lymphocytes 2.5 10^3/uL 1.0-4.8 Abs Monocytes 0.6 10^3/uL 0-0.8 Abs Eosinophils 0.3 10^3/uL 0-0.6 Abs Basophils 0 10^3/uL 0-0.2 Abs Nucleated RBC 0.01 10^3/uL Granulocyte % 57.2 % 38-83 Lymphocyte % 31.1 % 25-47 Monocyte % 7.7 % 1-9 Eosinophil % 3.4 % 0-6 Basophil % 0.6 % 0-2 Nucleated Red Blood Cells % 0.1 Comp Metabolic Panel 05/03/2014 Sodium 138 mmol/L 133-145 Potassium 3.9 mmol/L 3.5-5.0 Chloride 107 mmol/L 101-111 Co2 Carbon Dioxide 25 mmol/L 22-32 Anion Gap 6 mmol/L 2-11 Glucose 118 mg/dL High 70-100 Blood Urea Nitrogen 12 mg/dL 6-24 Creatinine 0.59 mg/dL Low 0.67-1.17 BUN/Creatinine Ratio 20.3 High 8-20 Calcium 9.1 mg/dL 8.6-10.3 Total Protein 6.5 g/dL 6.4-8.9 Albumin 4.1 g/dL 3.2-5.2 Globulin 2.4 g/dL 2-4 Albumin/Globulin Ratio 1.7 1-3 Total Bilirubin 0.30 mg/dL 0.2-1.0 Alkaline Phosphatase 154 U/L High 34-104 Alt 22 U/L 7-52 Ast 16 U/L 13-39 Laboratory test finding 05/03/2014 C Reactive Protein 1.57 mg/L < 5.00 37 CBC Auto Diff 03/26/2014 White Blood Count 9.0 10^3/uL 4.8-10.8 Red Blood Count 5.33 10^6/uL 4.0-5.4 Hemoglobin 14.5 g/dL 14.0-18.0 Hematocrit 43 % 42-52 Mean Corpuscular Volume 80 fL 80-94 Mean Corpuscular Hemoglobin 27 pg 27-31 Mean Corpuscular HGB Conc 34 g/dL 31-36 Red Cell Distribution Width 14 % 10.5-15 Platelet Count 261 10^3/uL 150-450 Mean Platelet Volume 9 um3 7.4-10.4 Abs Neutrophils 5.3 10^3/uL 1.5-7.7 Abs Lymphocytes 2.7 10^3/uL 1.0-4.8 Abs Monocytes 0.7 10^3/uL 0-0.8 Abs Eosinophils 0.2 10^3/uL 0-0.6 Abs Basophils 0.1 10^3/uL 0-0.2 Abs Nucleated RBC 0.01 10^3/uL Granulocyte % 59.1 % 38-83 Lymphocyte % 29.8 % 25-47 Monocyte % 8.1 % 1-9 Eosinophil % 2.4 % 0-6 Basophil % 0.6 % 0-2 Nucleated Red Blood Cells % 0.1 Comp Metabolic Panel 03/26/2014 Sodium 136 mmol/L 133-145 Potassium 4.1 mmol/L 3.5-5.0 Chloride 102 mmol/L 101-111 Co2 Carbon Dioxide 27 mmol/L 22-32 Anion Gap 7 mmol/L 2-11 Glucose 104 mg/dL High 70-100 Blood Urea Nitrogen 12 mg/dL 6-24 Creatinine 0.57 mg/dL Low 0.67-1.17 BUN/Creatinine Ratio 21.1 High 8-20 Calcium 9.5 mg/dL 8.6-10.3 Total Protein 6.4 g/dL 6.4-8.9 Albumin 4.4 g/dL 3.2-5.2 Globulin 2.0 g/dL 2-4 Albumin/Globulin Ratio 2.2 1-3 Total Bilirubin 0.50 mg/dL 0.2-1.0 Alkaline Phosphatase 177 U/L High 34-104 Alt 34 U/L 7-52 Ast 24 U/L 13-39 Laboratory test finding 03/26/2014 Hemoglobin A1c 5.7 % Less than 6.0 38 Insulin Level 37.4 mcIU/mL 2.6 - 24.9 39 CBC With Manual Diff 10/31/2013 White Blood Count 9.1 10^3/uL 4.8-10.8 Red Blood Count 5.28 10^6/uL 4.0-5.4 Hemoglobin 14.6 g/dL 14.0-18.0 Hematocrit 42 % 42-52 Mean Corpuscular Volume 80 fL 80-94 Mean Corpuscular Hemoglobin 28 pg 27-31 Mean Corpuscular HGB Conc 35 g/dL 31-36 Red Cell Distribution Width 14 % 10.5-15 Platelet Count 285 10^3/uL 150-450 Mean Platelet Volume 8 um3 7.4-10.4 Abs Neutrophils 5.2 10^3/uL 1.5-7.7 Abs Lymphocytes 2.9 10^3/uL 1.0-4.8 Abs Monocytes 0.7 10^3/uL 0-0.8 Abs Eosinophils 0.2 10^3/uL 0-0.6 Abs Basophils 0 10^3/uL 0-0.2 Abs Nucleated RBC 0.01 10^3/uL Neutrophil % 58 % 38-83 Lymphocytes % 27 % 25-47 Monocytes % 12 % 0-13 Eosinophils % 2 % 0-6 Basophil % 1 % 0-2 RBC Morphology Normal Normal Laboratory test finding 10/31/2013 TSH (Thyroid Stimulating 1.75 IU/mL 0.34-5.60 Horm) Lipid Profile 10/31/2013 Triglycerides 67 mg/dL 40 (Trig/Chol/HDL) Cholesterol 145 mg/dL 41 HDL Cholesterol 38.1 mg/dL 42 LDL Cholesterol 94 mg/dL 43 Laboratory test finding 10/31/2013 Insulin Level 25.5 mcIU/mL 2.6 - 24.9 44 Hemoglobin A1c 6.2 % High Less than 6.0 45 Comp Metabolic Panel 10/31/2013 Sodium 138 mmol/L 133-145 Potassium 4.3 mmol/L 3.7-5.6 Chloride 103 mmol/L 101-111 Co2 Carbon Dioxide 28 mmol/L 22-32 Anion Gap 7 mmol/L 2-11 Glucose 95 mg/dL 70-100 Blood Urea Nitrogen 10 mg/dL 6-24 Creatinine 0.58 mg/dL Low 0.67-1.17 BUN/Creatinine Ratio 17.2 8-20 Calcium 9.6 mg/dL 8.6-10.3 Total Protein 6.8 g/dL 6.4-8.9 Albumin 4.5 g/dL 3.2-5.2 Globulin 2.3 g/dL 2-4 Albumin/Globulin Ratio 2.0 1-3 Total Bilirubin 0.40 mg/dL 0.2-1.0 Alkaline Phosphatase 181 U/L High 34-104 Alt 42 U/L 7-52 Ast 29 U/L 13-39 Comp Metabolic Panel 07/29/2013 Sodium 140 mmol/L 133-145 Potassium 3.9 mmol/L 3.7-5.6 Chloride 106 mmol/L 101-111 Co2 Carbon Dioxide 27 mmol/L 22-32 Anion Gap 7 mmol/L 2-11 Glucose 106 mg/dL High 70-100 Blood Urea Nitrogen 13 mg/dL 6-24 Creatinine 0.60 mg/dL Low 0.67-1.17 BUN/Creatinine Ratio 21.7 High 8-20 Calcium 9.9 mg/dL 8.6-10.3 Total Protein 7.2 g/dL 6.4-8.9 Albumin 4.9 g/dL 3.2-5.2 Globulin 2.3 g/dL 2-4 Albumin/Globulin Ratio 2.1 1-3 Total Bilirubin 0.20 mg/dL 0.2-1.0 Alkaline Phosphatase 228 U/L High 34-104 Alt 26 U/L 7-52 Ast 20 U/L 13-39 CBC Auto Diff 07/29/2013 White Blood Count 9.0 10^3/uL 4.8-10.8 Red Blood Count 5.42 10^6/uL High 4.0-5.4 Hemoglobin 15.1 g/dL 14.0-18.0 Hematocrit 44 % 42-52 Mean Corpuscular Volume 81 fL 80-94 Mean Corpuscular Hemoglobin 28 pg 27-31 Mean Corpuscular HGB Conc 34 g/dL 31-36 Red Cell Distribution Width 14 % 10.5-15 Platelet Count 281 10^3/uL 150-450 Mean Platelet Volume 10 um3 7.4-10.4 Abs Neutrophils 4.5 10^3/uL 1.5-7.7 Abs Lymphocytes 3.5 10^3/uL 1.0-4.8 Abs Monocytes 0.7 10^3/uL 0-0.8 Abs Eosinophils 0.2 10^3/uL 0-0.6 Abs Basophils 0.1 10^3/uL 0-0.2 Abs Nucleated RBC 0.01 10^3/uL Granulocyte % 50.2 % 38-83 Lymphocyte % 38.5 % 25-47 Monocyte % 8.2 % 1-9 Eosinophil % 2.5 % 0-6 Basophil % 0.6 % 0-2 Nucleated Red Blood Cells % 0.1 Throat-Beta Strept 02/11/2013 Throat Beta Strep Culture (SEE NOTE) 46 CBC With Manual Diff 08/08/2012 White Blood Count 7.8 10^3/uL 4.8-10.8 Red Blood Count 5.18 10^6/uL 4.0-5.4 Hemoglobin 14.1 g/dL 14.0-18.0 Hematocrit 42 % 42-52 Mean Corpuscular Volume 81 fL 80-94 Mean Corpuscular Hemoglobin 27 pg 27-31 Mean Corpuscular HGB Conc 34 g/dL 31-36 Red Cell Distribution Width 14 % 10.5-15 Platelet Count 273 10^3/uL 150-450 Mean Platelet Volume 9 um3 7.4-10.4 Abs Neutrophils 3.8 10^3/uL 1.5-7.7 Abs Lymphocytes 3.1 10^3/uL 1.0-4.8 Abs Monocytes 0.6 10^3/uL 0-0.8 Abs Eosinophils 0.2 10^3/uL 0-0.6 Abs Basophils 0 10^3/uL 0-0.2 Abs Nucleated RBC 0.01 10^3/uL Neutrophil % 43 % 38-83 Lymphocytes % 46 % 25-47 Monocytes % 9 % 0-13 Eosinophils % 2 % 0-6 RBC Morphology Normal Normal Laboratory test finding 08/08/2012 Erythrocyte Sed Rate 15 mm/Hr High 0- 14 Lyme Disease Serology Negative Negative 47 Throat-Beta Strept 05/02/2012 Throat Beta Strep Culture (SEE NOTE) 48 Laboratory test finding 02/23/2011 .Hemoglobin in house 14.2 Laboratory test finding 07/03/2010 Throat Culture (Overnight) neg Throat Culture Quick Strep neg Laboratory test finding 02/12/2008 Hemoglobin 12.1 Laboratory test finding 02/14/2007 .Throat Culture Quick Strep neg .Throat Culture Overnight neg per sendek 1 Because ethnic data is not always readily available, this report includes an eGFR for both -Americans and non- Americans. The National Kidney Disease Education Program (NKDEP) does not endorse the use of the MDRD equation for patients that are not between the ages of 18 and 70, are , have extremes of body size, muscle mass, or nutritional status, or are non- or non-. According to the National Kidney Foundation, irrespective of diagnosis, the stage of the disease is based on the level of kidney function: Stage Description GFR(mL/min/1.73 m(2)) 1 Kidney damage with normal or decreased GFR 90 2 Kidney damage with mild decrease in GFR 60-89 3 Moderate decrease in GFR 30-59 4 Severe decrease in GFR 15-29 5 Kidney failure <15 (or dialysis) 2 Therapeutic target for the treatment of diabetes mellitus patients is <7% HBA1C, and in selective patients <6.0%. Please refer to [place] [employer] diabetic care guidelines for further information. 3 Test Performed by: [facility] [address] [facility], [place] [address] 4 Desirable: <150 Borderline High: 150-199 High: 200-499 Very High: >500 5 Desirable: <200 Borderline High: 200-239 High: >239 6 Low: <40 Desirable: 40-60 High: >60 7 Desirable: <100 Near Optimal: 100-129 Borderline High: 130-159 High: 160-189 Very High: >189 8 Please note: The following may produce a false positive D Dimer test: - Rheumatoid factor greater than 60 IU/ml - Plasma hemoglobin greater than 0.05 gm/dl - Bilirubin greater than 50 mg/dl - Lipids greater than 1000 mg/dl - FDP greater than 20 ug/ml 9 >100 to <200 pg/mL: likely compensated congestive heart failure (CHF) 200 to 400 pg/mL: likely moderate CHF >400 pg/mL: likely moderate to severe CHF 10 Because ethnic data is not always readily available, this report includes an eGFR for both -Americans and non- Americans. The National Kidney Disease Education Program (NKDEP) does not endorse the use of the MDRD equation for patients that are not between the ages of 18 and 70, are , have extremes of body size, muscle mass, or nutritional status, or are non- or non-. According to the National Kidney Foundation, irrespective of diagnosis, the stage of the disease is based on the level of kidney function: Stage Description GFR(mL/min/1.73 m(2)) 1 Kidney damage with normal or decreased GFR 90 2 Kidney damage with mild decrease in GFR 60-89 3 Moderate decrease in GFR 30-59 4 Severe decrease in GFR 15-29 5 Kidney failure <15 (or dialysis) 11 [facility] Severe Sepsis and Septic Shock Management Bundle Measure requires all lactic acids initially measuring >2.0 mmol/L be repeated. 12 Result TnIDx:0.04 Called to [id number] at: 16:25:38 by:[id number] Read back by: [id number] Please note: The following may produce a false positive D Dimer test: - Rheumatoid factor greater than 60 IU/ml - Plasma hemoglobin greater than 0.05 gm/dl - Bilirubin greater than 50 mg/dl - Lipids greater than 1000 mg/dl - FDP greater than 20 ug/ml 14 >100 to <200 pg/mL: likely compensated congestive heart failure (CHF) 200 to 400 pg/mL: likely moderate CHF >400 pg/mL: likely moderate to severe CHF 15 [facility] Severe Sepsis and Septic Shock Management Bundle Measure requires all lactic acids initially measuring >2.0 mmol/L be repeated. 16 Acute inflammation: >10.00 17 99th percentile=0.04 ng/mL Troponin results at [facility] and [facility] are not interchangeable. 18 Because ethnic data is not always readily available, this report includes an eGFR for both -Americans and non- Americans. The National Kidney Disease Education Program (NKDEP) does not endorse the use of the MDRD equation for patients that are not between the ages of 18 and 70, are , have extremes of body size, muscle mass, or nutritional status, or are non- or non-. According to the National Kid[employer] Foundation, irrespective of diagnosis, the stage of the disease is based on the level of kidney function: Stage Description GFR(mL/min/1.73 m(2)) 1 Kidney damage with normal or decreased GFR 90 2 Kidney damage with mild decrease in GFR 60-89 3 Moderate decrease in GFR 30-59 4 Severe decrease in GFR 15-29 5 Kidney failure <15 (or dialysis) 19 [facility] Severe Sepsis and Septic Shock Management Bundle Measure requires all lactic acids initially measuring >2.0 mmol/L be repeated. 20 Because ethnic data is not always readily available, this report includes an eGFR for both -Americans and non- Americans. The National Kidney Disease Education Program (NKDEP) does not endorse the use of the MDRD equation for patients that are not between the ages of 18 and 70, are , have extremes of body size, muscle mass, or nutritional status, or are non- or non-. According to the National Kidney Foundation, irrespective of diagnosis, the stage of the disease is based on the level of kidney function: Stage Description GFR(mL/min/1.73 m(2)) 1 Kidney damage with normal or decreased GFR 90 2 Kidney damage with mild decrease in GFR 60-89 3 Moderate decrease in GFR 30-59 4 Severe decrease in GFR 15-29 5 Kidney failure <15 (or dialysis) 21 Desirable <150 Borderline high 150-199 High 200-499 Very High >500 22 Desirable <200 Borderline high 200-239 High >239 23 Low <40 Desirable: 40-60 High: >60 24 Desirable: <100 mg/dL Near Optimal: 100-129 mg/dL Borderline High: 130-159 mg/dL High: 160-189 mg/dL Very High: >189 mg/dL 25 99th percentile=0.04 ng/mL Troponin results at [facility] and [facility] are not interchangeable. 26 The urine specimen was tested at the listed cutoffs: Drug class test level (ng/mL) Amphetamines 500 Barbiturates 200 Benzodiazepine metabolites 200 Cocaine metabolites 150 Cannabinoids 50 Opiates 300 Pcp 25 Specimen was received without chain of custody. Results should be used for medical purposes only. 27 Because ethnic data is not always readily available, this report includes an eGFR for both -Americans and non- Americans. The National Kidney Disease Education Program (NKDEP) does not endorse the use of the MDRD equation for patients that are not between the ages of 18 and 70, are , have extremes of body size, muscle mass, or nutritional status, or are non- or non-. According to the National Kidney Foundation, irrespective of diagnosis, the stage of the disease is based on the level of kidney function: Stage Description GFR(mL/min/1.73 m(2)) 1 Kidney damage with normal or decreased GFR 90 2 Kidney damage with mild decrease in GFR 60-89 3 Moderate decrease in GFR 30-59 4 Severe decrease in GFR 15-29 5 Kidney failure <15 (or dialysis) 28 Therapeutic concentration: <50 ug/mL Toxic concentration: >120 ug/mL 29 Because ethnic data is not always readily available, this report includes an eGFR for both -Americans and non- Americans. The National Kidney Disease Education Program (NKDEP) does not endorse the use of the MDRD equation for patients that are not between the ages of 18 and 70, are , have extremes of body size, muscle mass, or nutritional status, or are non- or non-. According to the National Kidney Foundation, irrespective of diagnosis, the stage of the disease is based on the level of kidney function: Stage Description GFR(mL/min/1.73 m(2)) 1 Kidney damage with normal or decreased GFR 90 2 Kidney damage with mild decrease in GFR 60-89 3 Moderate decrease in GFR 30-59 4 Severe decrease in GFR 15-29 5 Kidney failure <15 (or dialysis) 30 Reference Range and Interpretation: TnI (ng/mL) Interpretation Less Than 0.03 ng/mL Not supportive of diagnosis of ID 0.03 - 0.50 ng/mL Indeterminate: suggest serial studies if clinically indicated. Greater than 0.5 ng/mL Consistent with diagnosis of ID 31 Reference Range and Interpretation: TnI (ng/mL) Interpretation Less Than 0.03 ng/mL Not supportive of diagnosis of ID 0.03 - 0.50 ng/mL Indeterminate: suggest serial studies if clinically indicated. Greater than 0.5 ng/mL Consistent with diagnosis of ID 32 Because ethnic data is not always readily available, this report includes an eGFR for both -Americans and non- Americans. The National Kidney Disease Education Program (NKDEP) does not endorse the use of the MDRD equation for patients that are not between the ages of 18 and 70, are , have extremes of body size, muscle mass, or nutritional status, or are non- or non-. According to the National Kidney Foundation, irrespective of diagnosis, the stage of the disease is based on the level of kidney function: Stage Description GFR(mL/min/1.73 m(2)) 1 Kidney damage with normal or decreased GFR 90 2 Kidney damage with mild decrease in GFR 60-89 3 Moderate decrease in GFR 30-59 4 Severe decrease in GFR 15-29 5 Kidney failure <15 (or dialysis) 33 [facility] Severe Sepsis and Septic Shock Management Bundle Measure requires all lactic acids initially measuring >2.0 mmol/L be repeated. 34 Unable to report test result due to hemolysis. 35 Unable to report test result due to hemolysis. 36 Acute inflammation: >10.00 37 Acute inflammation: >10.00 38 Therapeutic target for the treatment of diabetes Mellitus patients is <7% HBA1C, and in selective patients <6.0%.Please refer to [place] [employer] Diabetic care guidelines for further information. 39 Test Performed by: [place] [address] Driver'S License Reviewing Officer: Jefferson Olmos M.D. 40 Desirable <90 Borderline high 90-129 High >129 41 Desirable <170 Borderline high 170-199 High >199 42 Low <40 Borderline low 40-59 Desirable >59 43 Low <40 Borderline low 40-59 Desirable >59 mg/dL 44 Test Performed by: [place] [address] Driver'S License Reviewing Officer: Christiano Lainez III, M.D. 45 Therapeutic target for the treatment of diabetes Mellitus patients is <7% HBA1C, and in selective patients <6.0%.Please refer to [employer] Diabetic care guidelines for further information. 46 RUN DATE: 02/14/13 [facility] LAB LIVE PAGE 1 RUN TIME: [address] [place] [address] Specimen Inquiry Name: RON ASHFORD : [address]: Giovana Driver MD Acct: [id number] Unit: [id number] AGE: 17 Location: [facility] Re02/11/13 SEX: M Status: DEP ER SPEC: [id number] GEOFF: 02/11/[address] [facility] [address]: Rosalinda Farah NP REQ: [id number] RECD: 02/12/13 STATUS: SANDRA SUTTON DR: CHRIS Charles MD _ SOURCE: THROAT SPDESC: ORDERED: Throat Beta Str Procedure Result Verified Site Throat Beta Strep Culture Final 02/14/13- 3052 ML Negative For Group A Beta Streptococcus END OF REPORT * ML=Testing performed at Main Lab DEPARTMENT OF PATHOLOGY, [address] [place] [address] Lenny Smith M.D. Director [facility] Permit #[id number] 47 Serologic response to B. burgdorferi infection is not detected, but cannot rule out early infection during which low or undetectable antibody levels to B. burgdorferi may be present. If clinically indicated, a new serum specimen should be submitted in 7-14 days. Test Performed by: [address] [address] Driver'S License Reviewing Officer: Christiano Lainez III, M.D. 48 RUN DATE: 05/04/12 [facility] LAB LIVE PAGE 1 RUN TIME: [address] [place] [address] Specimen Inquiry Name: ROSARON : [address]: Theo Gardiner MD Acct: [id number] Unit: [id number] AGE: 16 Location: [facility] Re05/02/12 SEX: M Status: DEP ER SPEC: [id number] GEOFF: 05/02/[address] [facility] [address]: Theo Gardiner MD REQ: [id number] RECD: 05/02/12 STATUS: SANDRA SUTTON DR: CHRIS Charles MD,Aníbal _ SOURCE: THROAT SPDESC: ORDERED: Throat Beta Str Procedure Result Verified Site Throat Beta Strep Culture Final 05/04/12- 0850 ML Negative For Group A Beta Streptococcus END OF REPORT * ML=Testing performed at Main Lab DEPARTMENT OF PATHOLOGY, [address] [place] [address] Lenny Smith M.D. Director [facility] Permit #[id number] Procedures Date CPT Code Description Status 04/03/2003 32904 Nebulizer Treatment Completed 12/23/1998 86235 Nebulizer/[place] [address] For Completed Treatment 11/12/1998 87146 Remove Impacted Cerumen with instrumentation Completed Encounters Type Date Location Provider CPT E/M Dx Office Visit 05/02/2017 8:15a [facility] Naresh Sharif C.P.N.P 96494 R73.03 Office Visit 04/21/2017 10:00a [facility] Office Siria AdamesP.N.P 40891 Z00.00 E66.9 K21.9 K76.0 Office Visit 04/19/2017 9:00a Main Office Henny Gil D.O. 53568 K59.00 Office Visit 02/28/2017 11:15a [facility] Office Aníbal Charles M.D. 39966 I88.9 Office Visit 02/09/2017 8:45a [facility] Office Basilio Nielsen III, M.D. 88129NP K21.9 K76.0 S40.911D Office Visit 02/01/2017 4:30p [facility] Office Aníbal Charles M.D. 99424 R59.9 Office Visit 11/28/2016 11:45a [facility] Office Naresh Sharif, C.P.N.P 56829 S93.402A Office Visit 09/26/2016 11:45a [facility] Office Naresh Sharif, C.P.N.P 50172 R06.00 R00.2 Office Visit 08/30/2016 4:15p [facility] Office Basilio Nielsen III, M.D. 75097 B35.4 Office Visit 06/18/2016 9:30a [facility] Office Naresh Sharif, C.P.N.P 14483 S06.0x1D Office Visit 06/07/2016 8:45a [facility] Office Naresh Sharif, C.P.N.P 14009 J02.9 Office Visit 05/30/2016 9:00a [facility] Office Naresh Sharif, C.P.N.P 98342 S06.0x1A Office Visit 04/20/2016 7:45a [facility] Office Aníbal Charles M.D. 34473 Z00.00 Z13.89 K21.9 K76.0 E66.9 R03.0 F90.1 F41.9 Office Visit 04/08/2016 4:30p [facility] Office Naresh Sharif C.P.N.P 96711 L04.0 Office Visit 03/24/2016 8:00a [facility] Office Basilio Nielsen III, M.D. 29610KK K21.9 K76.0 Office Visit 02/23/2016 9:15a [facility] Office Basilio Nielsen III, M.D. 51107NN R07.9 K76.0 Office Visit 02/08/2016 12:15p Main Office Aníbal Charles M.D. 32040 R07.9 E66.9 R03.0 F90.1 Office Visit 10/21/2015 1:00p [facility] Office Aníbal Charles M.D. 72095 F90.1 Office Visit 10/05/2015 4:00p [facility] Office Naresh Sharif C.P.N.P 11853 M54.5 Office Visit 07/07/2015 2:00p [facility] Office Basilio Nielsen III, M.D. 51988 M25.562 Office Visit 04/07/2015 11:00a [facility] Office Aníbal Charles M.D. 76712 Z00.121 F90.1 E66.9 F81.9 S63.501D S93.401S Office Visit 03/05/2015 1:00p [facility] Office Aníbal Charles M.D. 51423 R10.31 Office Visit 02/27/2015 12:30p [facility] Office Kirill Adames.P.N.P 36692 H60.8x1 Office Visit 01/20/2015 1:45p [facility] Office Aníbal Charles M.D. 46859 F90.1 F90.1 Office Visit 06/30/2014 11:00a [facility] Office Basilio Nielsen III, M.D. 66845 465.9 Office Visit 06/26/2014 1:15p [facility] Office Aníbal Charles M.D. 68461 314.01 465.9 278.00 Office Visit 03/25/2014 8:30a [facility] Office Aníbal Charles M.D. 00201 V20.2 314.01 V40.0 278.00 V20.2 Office Visit 10/29/2013 12:00p [facility] Office Naresh Sharif C.P.N.P 60001 891.0 V85.54 701.2 Office Visit 07/30/2013 10:00a Main Office Aníbal Charles M.D. 52997 314.01 278.00 V65.40 Office Visit 07/11/2013 11:45a Main Office Naresh Sharif C.P.N.P 80979 465.9 Office Visit 03/18/2013 3:00p East Office Aníbal Charles M.D. 88538 V20.2 314.01 278.00 V40.0 V20.2 Office Visit 02/01/2013 4:00p East Office Aníbal Charles M.D. 45948 314.01 278.00 706.1 Office Visit 01/15/2013 11:45a [facility] Office Naresh Sharif C.P.NJanP 76749 465.9 Office Visit 10/17/2012 8:45a [facility] Office Aníbal Charles M.D. 02038 314.01 278.00 Office Visit 08/09/2012 9:30a [facility] Office Basilio Nielsen III, M.D. 87987 959.7 Office Visit 08/08/2012 11:45a [facility] Office Richard Pal M.D. 28442 959.7 Office Visit 03/12/2012 11:30a [facility] Office Aníbal Charles M.D. 60817 V20.2 314.01 V40.0 278.00 Office Visit 01/19/2012 12:45p [facility] Office Naresh Sharif C.P.N.P 46634 465.9 Office Visit 11/17/2011 11:00a [facility] Office Aníbal Charles M.D. 55519 314.01 278.00 V40.0 Office Visit 09/13/2011 4:00p East Office Siria AdamesP.N.P 39925 850.0 Office Visit 05/25/2011 9:00a [facility] Office Aníbal Charles M.D. 24202 314.01 278.00 V40.0 Office Visit 04/22/2011 2:15p [facility] Office Aníbal Charles M.D. 83878 314.01 Office Visit 02/23/2011 11:00a [facility] Office Aníbal Charles M.D. 43995 V20.2 V40.0 278.00 530.81 Office Visit 07/08/2010 1:00p [facility] Office Aníbal Charles M.D. 98291 530.81 Office Visit 07/03/2010 10:30a East Office Henny Gil D.O. 16537 462 474.10 Office Visit 02/17/2010 11:30a [facility] Office Aníbal Charles M.D. 89727 V20.2 278.02 V40.0 474.11 Office Visit 2009 11:30a [facility] Office Henny Gil D.O. 43197 V41.1 Office Visit 02/16/2009 3:30p [facility] Office Aníbal Charles M.D. 73714 V20.2 278.02 V40.0 474.11 110.5 Office Visit 02/12/2008 3:00p [facility] Office Aníbal Charles M.D. 28419 V20.2 278.02 V40.0 Office Visit 05/16/2007 9:45a East Office Shannan Umanzor C.P.NJanPJan 83330 465.9 Office Visit 02/13/2007 12:15p [facility] Office Shannan Umanzor C.P.N.PJan 66874 684 Office Visit 12/07/2006 3:00p [facility] Office Aníbal Charles M.D. 76473 V20.2 278.02 V40.0 Office Visit 04/04/2006 4:45p [facility] Office Aníbal Charles M.D. 40001 382.9 Office Visit 03/29/2006 1:00p [facility] Office Aníbal Charles M.D. 41987 465.9 461.9 Office Visit 12/09/2005 8:00a [facility] Office Aníbal Charles M.D. 43926 V20.2 Office Visit 07/12/2005 9:15a [facility] Office Aníbal Charles M.D. 41906 465.9 Office Visit 02/21/2005 9:15a East Office Kenisha Del Cid R.P.A.CJan 72182 472.0 Office Visit 07/05/2004 9:30a East Office Henny Gil D.O. 40399 786.2 Office Visit 06/29/2004 9:45a East Office Kenisha Del Cid R.P.AJanCJan 34056 789.00 Office Visit 05/17/2004 11:00a [facility] Office Aníbal Charles M.D. 62562 519.1 465.9 Office Visit 04/07/2004 9:15a East Office Henny Gil D.O. 24197 558.9 Office Visit 03/09/2004 1:15p [facility] Office Aníbal Charles M.D. 89187 465.9 Office Visit 01/17/2004 10:45a Main Office Richard Pal M.D. 92499 461.9 Office Visit 01/05/2004 10:15a East Office Katarina Longoria 12215 V20.2 Office Visit 04/03/2003 11:00a East Office Kenisha Del Cid R.P.AJanCJan 50019 465.9 Office Visit 01/14/2003 2:15p East Office Henny Gil D.O. 11840 V20.2 Office Visit 10/18/2002 12:30p East Office Henny Gil D.O. 20441 382.9 Office Visit 07/02/2002 3:15p East Office Basilio Nielsen III, M.D. 39613 465.9 Office Visit 05/10/2002 11:45a East Office Basilio Nielesn III, M.D. 77248 786.2 465.9 Office Visit 04/22/2002 2:15p East Office Kenisha Del Cid R.P.AJanCJan 73567 382.9 Office Visit 04/04/2002 12:00p East Office Kenisha Del Cid R.P.A.CJan 85890 382.9 Office Visit 03/11/2002 2:15p East Office Kenisha Del Cid R.P.AJanCJan 87365 780.6 Office Visit 02/11/2002 12:00p East Office Richard Pal M.D. 12122 786.2 Office Visit 02/08/2002 3:30p East Office Richard Pal M.D. 43242 461.9 Office Visit 07/10/2001 2:30p Main Office Aníbal Charles M.D. 10852 382.9 Office Visit 06/20/2001 10:15a Main Office Basilio Nielsen III, M.D. 03683 Office Visit 11/07/2000 2:30p Main Office Zaira Stack M.D. 49639 Office Visit 09/26/2000 2:15p Main Office Zaira Stack M.D. 74454 Office Visit 05/29/2000 12:15p Main Office Shannan Umanzor C.P.N.P. 27065 487.1 Plan of Care Future Appointment(s):06/30/2017 9:00 am - Siria AdamesP.N.P at [facility] [place]605/19/2017 - Basilio Nielsen III, M.D.J20.9 Acute bronchitis, unspecifiedNew Medication:Azithromycin 250 mgComments:Symptomatic care
[2017-06-03 21:38] LABS: ABS Basophils 0.1 10^3/ul (0-0.2); ABS Eosinophils 0.2 10^3/ul (0-0.6); ABS Lymphocytes 3.5 10^3/ul (1.0-4.8); ABS Monocytes 0.8 10^3/ul (0-0.8); ABS Neutrophils 4.7 10^3/ul (1.5-7.7); ABS Nucleated RBC 0 10^3/ul; Eosinophil % 2.1 % (0-6); Hematocrit 42 % (42-52); Lymphocyte % 37.6 % (25-47); Mean Corpuscular HGB Conc 33 g/dl (31-36); Mean Corpuscular Hemoglobin 27 pg (27-31); Mean Corpuscular Volume 82 fL (80-94); Mean Platelet Volume 9 um3 (7.4-10.4); Nucleated Red Blood Cells % 0.1; Platelet Count 253 10^3/ul (150-450); Red Blood Count 5.15 10^6/ul (4.0-5.4); Red Cell Distribution Width 14 % (10.5-15); White Blood Count 9.2 10^3/ul (3.5-10.8)
[2017-06-03 21:49] LABS: EGFR Non-African American 161.1 (>60)
[2017-06-03 23:07] VITALS: BP 127/63
--- NOTE | 2017-06-04 09:13 | RAD ---
INDICATION: Mid LEFT chest pain for 3 hours. COMPARISON: March 04, 2017 TECHNIQUE: Dual energy PA and routine lateral views of the chest were obtained. REPORT: Obese body habitus. Clear lungs and pleural spaces. Negative for pneumothorax. The heart, pulmonary vasculature, and mediastinal contours are unremarkable. Unremarkable osseous structures and soft tissue contours. IMPRESSION: No evidence for acute intrathoracic disease.
--- NOTE | 2017-06-10 19:54 | ED ---
Joseph Edge Rebecca, scribed for Cortes Davis MD on 06/03/17 at 2039 . HPI Chest Pain - HPI Summary HPI Summary: Pt is a 21 y/o M BIBA who presents to ED c/o CP. Pain began today at approximately 1830 and is currently moderate, ranked 6/10. Pain is described as "like there is electricity going through my heart." Sx aggravated and alleviated by nothing, treated with 800 mg Ibuprofen. Additionally c/o chills. Denies fever, diaphoresis, sore throat, ear pain, and cough. Prior similar episodes of CP for which he is seeing a security messenger and has previously had a 24 holter monitor with no abnormal findings, per nurse's triage. PMHx pre- diabetes for which he is on Metformin with his BG typically between 80 and 100. No PMHx depression or panic disorder. - History of Current Complaint Chief Complaint: EDChestWallPain Time Seen by Provider: 06/03/17 20:32 Hx Obtained From: Patient Onset/Duration: Started Hours Ago, Started Days Ago, Still Present Time of Onset: 18:30 Current Severity: Moderate Pain Intensity: 6 Pain Scale Used: 0-10 Numeric Character: Other: - "electricity" Aggravating Factor(s): Nothing Alleviating Factor(s): Nothing Associated Signs and Symptoms: Positive: Chills. Negative: Fever, Diaphoresis - Additional Pertinent History Primary Care Physician: - Allergy/Home Medications Allergies/Adverse Reactions: Allergies Allergy/AdvReac Type Severity Reaction Status Date / Time MS Bee Venom [Bee Venom] Allergy Swelling Verified 12/01/16 10:56 PMH/Surg Hx/FS Hx/Imm Hx Endocrine/Hematology History: Reports: Hx Diabetes - Pre-diabetic - on metformin Denies: Hx Thyroid Disease Cardiovascular History: Denies: Hx Congestive Heart Failure, Hx Deep Vein Thrombosis, Hx Hypertension , Hx Myocardial Infarction, Hx Pacemaker/ICD Respiratory History: Denies: Hx Asthma, Hx Chronic Obstructive Pulmonary Disease (COPD), Hx Lung Cancer, Hx Pneumonia, Hx Pulmonary Embolism GI History: Reports: Hx Gastroesophageal Reflux Disease Denies: Hx Gall Bladder Disease, Hx Gastrointestinal Bleed, Hx Ulcer, Hx Urosepsis History: Denies: Hx Kidney Stones, Hx Renal Disease Sensory History: Denies: Hx Hearing Aid Neurological History: Denies: Hx Dementia, Hx Migraine, Hx Seizures, Hx Transient Ischemic Attacks (TIA) Psychiatric History: Reports: Hx Anxiety, Hx Attention Deficit Hyperactivity Disorder Denies: Hx Eating Disorder, Hx Depression, Hx Panic Disorder, Hx Schizophrenia, Hx Bipolar Disorder, Hx of Violent Episodes Against Others - Surgical History Surgery Procedure, Year, and Place: tonsillectomy; adenectomy; tubes in bilat ears Infectious Disease History: No Infectious Disease History: Denies: Hx Clostridium Difficile, Hx Hepatitis, Hx Human Immunodeficiency Virus (HIV), Hx of Known/Suspected MRSA, Hx Shingles, Hx Tuberculosis, Hx Known/ Suspected VRE, Hx Known/Suspected VRSA, History Other Infectious Disease, Traveled Outside the [place] in Last 30 Days - Family History Known Family History: Positive: Cardiac Disease - grandfather, mother with palpitations of unk etiology, Diabetes - paternal , Other - CVA Negative: Hypertension - Social History Alcohol Use: None Hx Substance Use: No Substance Use Type: Reports: None Hx Tobacco Use: No Smoking Status (MU): Never Smoked Tobacco Have You Smoked in the Last Year: No Review of Systems Positive: Chills. Negative: Fever, Skin Diaphoresis Negative: Sore Throat, Ear Ache Positive: Chest Pain Negative: Cough All Other Systems Reviewed And Are Negative: Yes Physical Exam - Summary Physical Exam Summary: Appearance: Well-appearing, Well-nourished Skin: Warm, Dry, No rash Eyes: Normal, PERRL, EOMI, sclera anicteric ENT: Normal Neck: Supple, nontender Respiratory: Clear to auscultation Cardiovascular: S1, S2, no murmur, no rub, no gallop Abdomen: Soft, nontender, no organomegaly Bowel sounds: Present Musculoskeletal: Normal, Strength/ROM Intact, no edema, pulses symmetrical Neurological: Normal, A&Ox3, cranial nerves II-XII WNL, follows commands, gait not tested, sensation intact to pin and light touch Psychiatric: affect normal, behavior appropriate, dressed appropriately, judgment intact Triage Information Reviewed: Yes Vital Signs On Initial Exam: Initial Vitals Temp Pulse Resp BP Pulse Ox 98.2 F 83 19 148/58 97 06/03/17 20:33 06/03/17 20:33 06/03/17 20:33 06/03/17 20:33 06/03/17 20:33 Vital Signs Reviewed: Yes Diagnostics - Vital Signs Vital Signs Temp Pulse Resp BP Pulse Ox 06/03/17 20:33 98.2 F 83 19 148/58 97 - Laboratory Lab Results: Lab Results 06/03/17 06/03/17 Range/Units 21:25 21:25 WBC 9.2 (3.5-10.8) 10^3/ul RBC 5.15 (4.0-5.4) 10^6/ul Hgb 14.0 (14.0-18.0) g/dl Hct 42 (42-52) % MCV 82 (80-94) fL MCH 27 (27-31) pg MCHC 33 (31-36) g/dl RDW 14 (10.5-15) % Plt Count 253 (150-450) 10^3/ul MPV 9 (7.4-10.4) um3 Neut % (Auto) 50.8 (38-83) % Lymph % (Auto) 37.6 (25-47) % Finney % (Auto) 8.9 (1-9) % Eos % (Auto) 2.1 (0-6) % Baso % (Auto) 0.6 (0-2) % Absolute Neuts (auto) 4.7 (1.5-7.7) 10^3/ul Absolute Lymphs (auto) 3.5 (1.0-4.8) 10^3/ul Absolute Monos (auto) 0.8 (0-0.8) 10^3/ul Absolute Eos (auto) 0.2 (0-0.6) 10^3/ul Absolute Basos (auto) 0.1 (0-0.2) 10^3/ul Absolute Nucleated RBC 0 10^3/ul Nucleated RBC % 0.1 Sodium 138 (133-145) mmol/L Potassium 3.6 (3.5-5.0) mmol/L Chloride 104 (101-111) mmol/L Carbon Dioxide 26 (22-32) mmol/L Anion Gap 8 (2-11) mmol/L BUN 14 (6-24) mg/dL Creatinine 0.64 L (0.67-1.17) mg/dL Est GFR ( Amer) 207.2 (>60) Est GFR (Non-Af Amer) 161.1 (>60) BUN/Creatinine Ratio 21.9 H (8-20) Glucose 97 (70-100) mg/dL Calcium 9.5 (8.6-10.3) mg/dL Total Bilirubin 0.40 (0.2-1.0) mg/dL AST 22 (13-39) U/L ALT 33 (7-52) U/L Alkaline Phosphatase 81 (34-104) U/L Total Protein 6.5 (6.4-8.9) g/dL Albumin 4.2 (3.2-5.2) g/dL Globulin 2.3 (2-4) g/dL Albumin/Globulin Ratio 1.8 (1-3) TSH 2.29 (0.34-5.60) mcIU/mL Result Diagrams: 06/03/17 21:25 06/03/17 21:25 Lab Statement: Any lab studies that have been ordered have been reviewed, and results considered in the medical decision making process. - Radiology CXR Xray Interpretation: No Acute Changes Radiology Interpretation Completed By: ED Physician - EKG 2242 Cardiac Rate: NL - 69 bpm EKG Rhythm: Sinus Rhythm EKG Interpretation: Normal Re-Evaluation - Re-Evaluation First Eval Re-Evaluation Time: 22:54 Change: Improved Comment: Discussed results and D/C plan with the pt. Chest Pain Course/Dx - Course Assessment/Plan: Pt is a 21 y/o M BIBA who presents to ED c/o CP since today at approximately 1830, currently moderate, ranked 6/10. Pain is described as "like there is electricity going through my heart." Sx treated with 800 mg Ibuprofen. Additionally c/o chills. Denies fever, diaphoresis, sore throat, ear pain, and cough. Prior similar episodes of CP for which he is seeing a security messenger and has previously had a 24 holter monitor with no abnormal findings, per nurse's triage. PMHx pre-diabetes for which he is on Metformin. No PMHx depression or panic disorder. CXR and EKG reveal no acute findings. Pt will be D/C to home with Dx of panic attack. He understands and agrees. Allergy and elevated BP noted. - Diagnoses Provider Diagnoses: Panic attack Discharge - Discharge Plan Condition: Good Disposition: HOME Discharge Disposition Comment: home Patient Education Materials: Panic Attack (ED) Referrals: Aníbal Charles MD [Medical Doctor] - The documentation as recorded by the scribe, DiFabio,Cat accurately reflects the service I personally performed and the decisions made by me, Cortes Davis MD.
== END 2017-06-03 23:07 | disposition home or self-care (01) ==
LOC: ED 20:24
DX: F41.0 Panic disorder [episodic paroxysmal anxiety] (principal); R07.9 Chest pain, unspecified
CPT/HCPCS: 36415; 71046; 80053; 84443; 85025; 93005; 99283

== ENCOUNTER 2017-06-24 11:37 | Emergency (ER) | payer OTHER ==
[2017-06-24 11:54] VITALS: BP 154/79
--- NOTE | 2017-06-24 12:54 | UC ---
Respiratory Complaint HPI - HPI Summary HPI Summary: c/o nasal discharge, sore throat, right earache for the past 2-3 days. Other members of his family have similar symptoms, mother started having them first and she tested negative for strept and influenza at today. - History of Current Complaint Chief Complaint: Ear Stated Complaint: EAR PAIN SORE THROAT CONGESTION Time Seen by Provider: 06/24/17 11:56 Hx Obtained From: Patient Onset/Duration: Gradual Onset, Lasting Days Timing: Constant Severity Initially: Mild Severity Currently: Mild Pain Intensity: 8 - Risk Factors Pulmonary Embolism Risk Factors: Negative Cardiac Risk Factors: Negative Pseudomonas Risk Factors: Negative Tuberculosis Risk Factors: Negative - Allergies/Home Medications Allergies/Adverse Reactions: Allergies Allergy/AdvReac Type Severity Reaction Status Date / Time bee venom protein (honey bee) Allergy Swelling Verified 06/24/17 11:54 Home Medications: Home Medications Cholecalciferol TAB* [Vitamin D TAB*] 1,000 unit PO DAILY 06/24/17 [History Confirmed 06/24/17] metFORMIN* [Glucophage 500 MG TAB *] 500 mg PO DAILY 06/24/17 [History Confirmed 06/24/17] PMH/Surg Hx/FS Hx/Imm Hx Previously Healthy: Yes - Surgical History Surgical History: Yes Surgery Procedure, Year, and Place: tonsillectomy; adenectomy; tubes in bilat ears - Family History Known Family History: Positive: Cardiac Disease - grandfather, mother with palpitations of unk etiology, Diabetes - paternal , Other - CVA Negative: Hypertension - Social History Alcohol Use: None Substance Use Type: None Smoking Status (MU): Never Smoked Tobacco Have You Smoked in the Last Year: No Household Exposure Type: Cigarettes - Immunization History Most Recent Influenza Vaccination: 2014 Most Recent Tetanus Shot: 2008 Most Recent Pneumonia Vaccination: n/a Vaccination Up to Date: Yes Review of Systems Constitutional: Negative ENT: Sore Throat, Nasal Discharge Respiratory: Negative All Other Systems Reviewed And Are Negative: Yes Physical Exam Triage Information Reviewed: Yes Appearance: Well-Appearing, Obese Vital Signs: Initial Vital Signs Temp 97.5 F 06/24/17 11:51 Pulse 84 06/24/17 11:51 Resp 16 06/24/17 11:51 BP 154/79 06/24/17 11:51 Pulse Ox 99 06/24/17 11:51 Vital Signs Reviewed: Yes Eyes: Positive: Conjunctiva Clear ENT: Positive: Hearing grossly normal, Pharynx normal, Nasal congestion, TMs normal - cerumen impaction right ear Neck: Positive: Supple, Nontender, No Lymphadenopathy Respiratory: Positive: Chest non-tender, Lungs clear, Normal breath sounds, No respiratory distress Cardiovascular: Positive: RRR, No Murmur, Pulses Normal, Brisk Capillary Refill Abdomen Description: Positive: Nontender UC Diagnostic Evaluation - Laboratory O2 Sat by Pulse Oximetry: 99 Respiratory Course/Dx - Course Course Of Treatment: use debrox for cerumen impaction, oral hydration, tylenol if needed - Differential Dx/Diagnosis Provider Diagnoses: Cerumen impaction. URI viral Discharge - Discharge Plan Condition: Stable Disposition: HOME Patient Education Materials: Upper Respiratory Infection (DC) Referrals: No Primary Care Phys,NOPCP [Primary Care Provider] - [facility] [Outside]
== END 2017-06-24 13:02 | disposition home or self-care (01) ==
LOC: UCEAST 11:37
DX: H61.21 Impacted cerumen, right ear (principal); J06.9 Acute upper respiratory infection, unspecified
CPT/HCPCS: 99211; G0463

== ENCOUNTER 2017-08-06 16:53 | Emergency (ER) | payer OTHER ==
--- OUTSIDE RECORDS SUMMARY | 2017-08-06 16:59 | XMS REPORT ---
:1995 External Reference #:[id number] Author Organization [facility] Address [address] [place] [address] [place] [address] Phone [phone] Care Team Providers Name Role Phone Basilio Nielsen III, M.D. 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 Active disorder Onset: 03/05/2015 Non-alcoholic fatty liver Aníbal Charles M.D. Active Onset: 02/09/2017 Gastroesophageal reflux [...] Form Strength Qnty SIG Indications Ordering Provider Pantoprazole Active Tablets DR 40mg 30tabs 1 by R07.9 Naresh Sodium 018 mouth Sharkness, every C.P.N.P day K21.9 Onetouch Ultra 05/02/2017 Active Strips 100units use as R73.03 Naresh Blue directed Sharkness, C.P.N.P Metformin HCL ER 05/02/2017 Active Tablets ER 50 60tabs 2 tablets R73.03 Naresh 24HR 0m by mouth Sharkness, g at dinner C.P.N.P time True Metrix Blood 05/02/2017 Active Strips 100units please use Naresh Glucosetest to test Sharkness, Strips blood C.P.N.P glucose twice daily Dx=R73.03 True Metrix Go 05/02/2017 Active Kit w/ Use as R73.03 Nraesh Blood Glucose De directed Sharkness, Meter vi C.P.N.P ce Truedraw Lancing 05/02/2017 Active Misc 1units Use as R73.03 Naresh Device directed Sharkness, C.P.N.P Vitamin D 04/29/2017 Active Capsules 20 30caps 1 by mouth Naresh 00 every day Sharkness, Un C.P.N.P it Azithromycin 05/19/2017 - Hx Tablets 25 6tabs 2 today J20.9 Basilio Y. 05/24/2017 0m then 1\\day marcos Nielsen x 4 days III, MJanD. Metformin HCL ER 05/02/2017 - Hx Tablets ER 50 60tabs Please R73.03 Naresh (Mod) 05/02/2017 24HR 0m take 1 Sharkness, g tablet in C.P.N.P the evening once daily for 2 weeks and then increase to two tablets once daily in the evening Onetouch Delica 05/02/2017 - Hx Misc 30 100units Use as R73.03 Naresh Lancets Fine 30G 05/02/2017 G directed Sharkness, C.P.N.P [...] bid Aníbal 05/10/2011 to jie Charles M.D. [facility] Methylphenidate 04/22/2011 - Hx Tablets ER [...] 2 TSP PO Shannan 05/28/2007 ML bid Noé, C.P.N.P. Keflex 02/13/2007 - Hx Tablets 500mg 20tabs 1 po bid 684 Shannan 02/23/2007 Noé, C.P.N.P. Ibuprofen 02/13/2007 - Hx Suspension 100mg/5 [...] TB Mary Test 11/12/18 Administered Injection Shannan Umanzor C.P.N.P. Immunizations CPT Code Status Date Vaccine Lot # [id number] Given 04/21/2017 Flu Inj Quadrivalent .5ml Preserve Free [id number] 32992 Given 01/20/2015 Flu Inj Quadrivalent .5ml Preserve Free [id number] 90322 Given 03/25/2014 Meningococcal A,C,Y,W135 (Menactra) Preservative [id number] Free 02934 Given 03/25/2014 Flu Mist Quadrivalent [id number] 87487 Given 10/29/2013 HPV 4 Gardasil 4 [id number] 80276 Given 03/18/2013 Flu Mist Quadrivalent [id number] 46633 Given 03/18/2013 HPV 4 Gardasil 4 [id number] 57388 Given 03/12/2012 HPV 4 Gardasil 4 [id number] 92155 Given 03/12/2012 Flu Vacc Nasal Mist Trivalent (FluMist) [id number] 43821 Given 02/23/2011 Flu Vacc Nasal Mist Trivalent (FluMist) [id number] 60588 Given 02/23/2011 Hepatitis A Vaccine Pediatric/Adolescent 2 Dose [id number] Schedule 71470 Given 02/17/2010 Flu Vacc Nasal Mist Trivalent (FluMist) [id number] 74783 Given 02/17/2010 Hepatitis A Vaccine Pediatric/Adolescent 2 Dose [id number] Schedule 16772 Given 02/16/2009 Meningococcal A,C,Y,W135 (Menactra) Preservative [id number] Free 79904 Given 02/16/2009 TdaP Immunization Age 7+ [id number] 37296 Given 02/16/2009 Flu Vacc Nasal Mist Trivalent (FluMist) [id number] 86246 Given 02/12/2008 Flu Vacc Nasal Mist Trivalent (FluMist) [id number] 65232 Given 02/12/2008 Varicella (Chicken Pox) Immunization [id number] 11084 Given 12/18/2001 Poliomyelitis Immunization 62470 Given 12/18/2001 MMR Virus Immunization 90343 Given 12/18/2001 DTaP Immunization under age 7 08325 Given 03/11/1999 DTaP & Hib Immunization 40399 Given 03/11/1999 Oral Poliovirus Immunization 15020 Given 11/12/1998 Varicella (Chicken Pox) Immunization 81059 Given 11/12/1998 MMR Virus Immunization 62293 Given 05/05/1998 DTaP Immunization under age 7 72564 Given 05/05/1998 Hib/Hep B Combination Vaccine 34247 Given 03/03/1998 Hib Immunization 01448 Given 03/03/1998 Poliomyelitis Immunization 12705 Given 03/03/1998 DTaP Immunization under age 7 91559 Given 01/05/1998 Hib/Hep B Combination Vaccine 33139 Given 01/05/1998 Poliomyelitis Immunization 70360 Given 01/05/1998 DTaP Immunization under age 7 22871 Given 1997 Hepatitis B Imm Age 0 to 19yr Vital Signs Date Vital Result Comment 07/28/2017 Weight 294.00 lb Weight in kg's 133.358 Weight Percentile >97th Body Temperature 96.3 F Heart Rate 70 /min BP Systolic 142 mmHg BP Diastolic 79 mmHg 07/04/2017 Height 69.25 inches 5'9.25" Height Percentile 45 % Weight 295.00 lb Weight in kg's 133.812 Weight Percentile >97th Heart Rate 72 /min BP Systolic 130 mmHg BP Diastolic 78 mmHg BMI (Body Mass Index) 43.2 kg/m2 Body Mass Index Percentile 99 % 05/19/2017 Weight 295.25 lb Weight in kg's [...] Result H/L Range Note CBC Auto Diff 07/25/2017 White Blood Count 9.8 10^3/uL 3.5-10.8 Red Blood Count 5.27 10^6/uL 4.0-5.4 Hemoglobin 14.7 g/dL 14.0-18.0 Hematocrit 43 % 42-52 Mean Corpuscular Volume 82 fL 80-94 Mean Corpuscular Hemoglobin 28 pg 27-31 Mean Corpuscular HGB Conc 34 g/dL 31-36 Red Cell Distribution Width 14 % 10.5-15 Platelet Count 249 10^3/uL 150-450 Mean Platelet Volume 8.6 um3 7.4-10.4 Abs Neutrophils 5.8 10^3/uL 1.5-7.7 Abs Lymphocytes 3.1 10^3/uL 1.0-4.8 Abs Monocytes 0.6 10^3/uL 0-0.8 Abs Eosinophils 0.2 10^3/uL 0-0.6 Abs Basophils 0.1 10^3/uL 0-0.2 Abs Nucleated RBC 0 10^3/uL Granulocyte % 59.1 % 38-83 Lymphocyte % 31.9 % 25-47 Monocyte % 5.8 % 0-7 Eosinophil % 2.2 % 0-6 Basophil % 1.0 % 0-2 Nucleated Red Blood Cells % 0 Comp Metabolic Panel 07/25/2017 Sodium 140 mmol/L 139-145 Chloride 105 mmol/L 101-111 Co2 Carbon Dioxide 26 mmol/L 22-32 Glucose 144 mg/dL High 70-100 Blood Urea Nitrogen 12 mg/dL 6-24 Creatinine 0.72 mg/dL 0.67-1.17 BUN/Creatinine Ratio 16.7 8-20 Calcium 9.2 mg/dL 8.6-10.3 Total Protein 7.0 g/dL 6.4-8.9 Albumin 4.4 g/dL 3.2-5.2 Globulin 2.6 g/dL 2-4 Albumin/Globulin Ratio 1.7 1-3 Total Bilirubin 0.30 mg/dL 0.2-1.0 Alkaline Phosphatase 82 U/L 34-104 Alt 34 U/L 7-52 Egfr Non- 140.6 >60 Egfr 180.9 >60 1 Potassium 3.8 mmol/L 3.5-5.0 Anion Gap 9 mmol/L 2-11 Ast 24 U/L 13-39 Laboratory test finding 07/25/2017 Lipase 28 U/L 11.0-82.0 CRP High Sensitivity 2.09 mg/L 2 Laboratory test finding 06/29/2017 Hemoglobin A1c (Glyco HGB) 5.7 % High 4.0-5.6 3 Insulin Level 39.9 mcIU/mL 2.6 - 24.9 4 Vitamin D Total 25(Oh) 29.3 ng/mL 20-50 5 Glucose 103 mg/dL High 70-100 6 CBC Auto Diff 04/26/2017 White Blood Count [...] Egfr Non- 158.3 >60 Egfr 203.5 >60 7 Sodium 136 mmol/L 133-145 Potassium 4.4 mmol/L 3.5-5.0 Anion Gap 7 mmol/L 2-11 Laboratory test finding 04/26/2017 Hemoglobin A1c (Glyco HGB) 6.3 % High 4.0-5.6 8 Insulin Level 41.2 mcIU/mL 2.6 - 24.9 9 Lipid Profile (Trig/Chol/HDL) 04/26/2017 Triglycerides 106 mg/dL 10 Cholesterol 137 mg/dL 11 HDL Cholesterol 32.8 mg/dL 12 LDL Cholesterol 83 mg/dL 13 Laboratory test finding 04/26/2017 TSH (Thyroid Stim Horm) 2.21 mcIU/mL 0.34-5.60 Vitamin D Total 25(Oh) 19.2 ng/mL Low 20-50 Laboratory test 03/04/2017 D Dimer Quantitative < 200 ng/mL Less Than 230 14 finding CBC Auto Diff 03/04/2017 White Blood [...] Laboratory test finding 03/04/2017 Partial Thrombo Time 29.7 seconds 26.0 -36.3 PTT Inr/Protime 03/04/2017 Inr 1.03 0.89-1.11 Laboratory test finding 03/04/2017 B-Type Natriuretic 17 pg/mL 15 Peptide BNP CKMB 03/04/2017 CKMB ng/mL 4.9 [...] Egfr Non- 167.1 >60 Egfr 214.9 >60 16 Laboratory test finding 03/04/2017 Lactic Acid 1.5 mmol/L 0.5-2.0 17 Laboratory test finding 03/04/2017 Troponin-I (TnI) 0.04 ng/mL High < 0.04 18 Xray 02/09/2017 Right clavicle negative Laboratory test [...] Quantitative < 200 ng/mL Less Than 230 19 B-Type Natriuretic Peptide BNP 28 pg/mL 20 Lactic Acid 1.4 mmol/L 0.5-2.0 21 Urinalysis Profile 09/26/2016 Urine Color Yellow Urine Appearance Cloudy Urine Specific [place] 1.025 1.010-1.030 Urine pH 8.0 5-9 Urine [...] C Reactive Protein 2.27 mg/L < 5.00 22 Troponin-I (TnI) 0.01 ng/mL <0.04 23 Comp Metabolic Panel 09/26/2016 Sodium 138 mmol/L [...] Egfr Non- 172.2 >60 Egfr 221.4 >60 24 CBC Auto Diff 06/23/2016 White Blood Count [...] -36.3 PTT Lactic Acid 1.6 mmol/L 0.5-2.0 25 Comp Metabolic Panel 06/23/2016 Sodium 137 mmol/L [...] Egfr Non- 160.0 >60 Egfr 205.8 >60 26 Potassium 3.9 mmol/L 3.5-5.0 Anion Gap 8 mmol/L 2-11 Ast 36 U/L 13-39 Lipid Profile (Trig/Chol/HDL) 06/23/2016 Triglycerides 114 mg/dL 27 Cholesterol 141 mg/dL 28 HDL Cholesterol 33.0 mg/dL 29 LDL Cholesterol 85 mg/dL 30 Laboratory test finding 06/23/2016 Troponin-I (TnI) 0.01 ng/mL <0.04 31 Laboratory test finding 06/07/2016 .Strep A, Rapid [...] Color Straw Urine Appearance Clear Urine Specific [place] 1.009 Low 1.010-1.030 Urine pH 7.0 5-9 [...] Urine Phencyclidine Screen None Detected None Detect 32 Comp Metabolic Panel 03/21/2016 Sodium 138 mmol/L [...] Egfr Non- 165.9 >60 Egfr 213.3 >60 33 Laboratory test finding 03/21/2016 TSH (Thyroid Stim Horm) 1.96 mcIU/mL 0.34-5.60 Acetaminophen < 15 g/mL 34 Alcohol < 10 mg/dL <10 Salicylate < [...] Egfr Non- 162.9 >60 Egfr 209.5 >60 35 Laboratory test finding 02/13/2016 Troponin-I (TnI) 0.01 ng/mL <0.03 36 Magnesium 1.9 mg/dL 1.9-2.7 CBC Auto Diff [...] finding 12/21/2015 Troponin-I (TnI) 0.01 ng/mL <0.03 37 Comp Metabolic Panel 12/21/2015 Sodium 137 mmol/L [...] Egfr Non- 162.9 >60 Egfr 209.5 >60 38 Laboratory test finding 12/21/2015 Creatine Kinase(CK) 173 U/L 10-223 CKMB 12/21/2015 CKMB ng/mL 4.3 ng/mL 0.6-6.3 Laboratory test finding 12/21/2015 Lactic Acid 0.7 mmol/L 0.5-2.0 39 Urinalysis Profile 03/07/2015 Urine Color Yellow Urine Appearance Cloudy Urine Specific [place] 1.020 1.010-1.030 Urine pH 7.0 5-9 Urine [...] 37 U/L 7-52 Potassium TNP mmol/L 3.5-5.0 40 Anion Gap TNP mmol/L 2-11 Ast TNP U/L 13-39 41 Laboratory test finding 03/07/2015 C Reactive Protein 1.85 mg/L < 5.00 42 CBC Auto Diff 03/07/2015 White Blood Count [...] Color Yellow Urine Appearance Clear Urine Specific [place] 1.024 1.010-1.030 Urine pH 6.0 5-9 Urine [...] C Reactive Protein 1.57 mg/L < 5.00 43 CBC Auto Diff 03/26/2014 White Blood Count [...] Hemoglobin A1c 5.7 % Less than 6.0 44 Insulin Level 37.4 mcIU/mL 2.6 - 24.9 45 CBC With Manual Diff 10/31/2013 White Blood [...] Horm) Lipid Profile 10/31/2013 Triglycerides 67 mg/dL 46 (Trig/Chol/HDL) Cholesterol 145 mg/dL 47 HDL Cholesterol 38.1 mg/dL 48 LDL Cholesterol 94 mg/dL 49 Laboratory test finding 10/31/2013 Insulin Level 25.5 mcIU/mL 2.6 - 24.9 50 Hemoglobin A1c 6.2 % High Less than 6.0 51 Comp Metabolic Panel 10/31/2013 Sodium 138 mmol/L [...] 02/11/2013 Throat Beta Strep Culture (SEE NOTE) 52 CBC With Manual Diff 08/08/2012 White Blood [...] 0- 14 Lyme Disease Serology Negative Negative 53 Throat-Beta Strept 05/02/2012 Throat Beta Strep Culture (SEE NOTE) 54 Laboratory test finding 02/23/2011 .Hemoglobin in house [...] 5 Kidney failure <15 (or dialysis) 2 Low risk: <1.00 Average risk: 1.00-3.00 High risk: >3.00 3 Therapeutic target for the treatment of diabetes mellitus patients is <7% HBA1C, and in selective patients <6.0%. Please refer to [place] diabetic care guidelines for further information. 4 Test Performed by: [facility] [address] [place] [address] 5 FASTING 6 FASTING 7 Because ethnic data is not always readily [...] 15-29 5 Kidney failure <15 (or dialysis) 8 Therapeutic target for the treatment of diabetes mellitus patients is <7% HBA1C, and in selective patients <6.0%. Please refer to [place] diabetic care guidelines for further information. 9 Test Performed by: [facility] [address] [facility], [place] [address] 10 Desirable: <150 Borderline High: 150-199 High: 200-499 Very High: >500 11 Desirable: <200 Borderline High: 200-239 High: >239 12 Low: <40 Desirable: 40-60 High: >60 13 Desirable: <100 Near Optimal: 100-129 Borderline High: 130-159 High: 160-189 Very High: >189 14 Please note: The following may produce a false positive D Dimer test: - Rheumatoid factor greater than 60 IU/ml - Plasma hemoglobin greater than 0.05 gm/dl - Bilirubin greater than 50 mg/dl - Lipids greater than 1000 mg/dl - FDP greater than 20 ug/ml 15 >100 to <200 pg/mL: likely compensated congestive heart failure (CHF) 200 to 400 pg/mL: likely moderate CHF >400 pg/mL: likely moderate to severe CHF 16 Because ethnic data is not always readily [...] 15-29 5 Kidney failure <15 (or dialysis) [address] [facility] Severe Sepsis and Septic Shock Management Bundle Measure requires all lactic acids initially measuring >2.0 mmol/L be repeated. 18 Result TnIDx:0.04 Called to [id number] at: 16:25:38 by:[id number] Read back by: [id number] Please note: The following may produce a false positive D Dimer test: - Rheumatoid factor greater than 60 IU/ml - Plasma hemoglobin greater than 0.05 gm/dl - Bilirubin greater than 50 mg/dl - Lipids greater than 1000 mg/dl - FDP greater than 20 ug/ml 20 >100 to <200 pg/mL: likely compensated congestive heart failure (CHF) 200 to 400 pg/mL: likely moderate CHF >400 pg/mL: likely moderate to severe CHF [address] [facility] Severe Sepsis and Septic Shock Management Bundle Measure requires all lactic acids initially measuring >2.0 mmol/L be repeated. 22 Acute inflammation: >10.00 23 99th percentile=0.04 ng/mL Troponin results at [facility] and [facility] are not interchangeable. 24 Because ethnic data is not always readily [...] 15-29 5 Kidney failure <15 (or dialysis) [address] [facility] Severe Sepsis and Septic Shock Management Bundle Measure requires all lactic acids initially measuring >2.0 mmol/L be repeated. 26 Because ethnic data is not always readily [...] 15-29 5 Kidney failure <15 (or dialysis) 27 Desirable <150 Borderline high 150-199 High 200-499 Very High >500 28 Desirable <200 Borderline high 200-239 High >239 29 Low <40 Desirable: 40-60 High: >60 30 Desirable: <100 mg/dL Near Optimal: 100-129 mg/dL Borderline High: 130-159 mg/dL High: 160-189 mg/dL Very High: >189 mg/dL 31 99th percentile=0.04 ng/mL Troponin results at [facility] and [facility] are not interchangeable. 32 The urine specimen was tested at the listed cutoffs: Drug class test level (ng/mL) Amphetamines 500 Barbiturates 200 Benzodiazepine metabolites 200 Cocaine metabolites 150 Cannabinoids 50 Opiates 300 Pcp 25 Specimen was received without chain of custody. Results should be used for medical purposes only. 33 Because ethnic data is not always readily [...] 15-29 5 Kidney failure <15 (or dialysis) 34 Therapeutic concentration: <50 ug/mL Toxic concentration: >120 ug/mL 35 Because ethnic data is not always readily [...] 15-29 5 Kidney failure <15 (or dialysis) 36 Reference Range and Interpretation: TnI (ng/mL) Interpretation Less Than 0.03 ng/mL Not supportive of diagnosis of NM 0.03 - 0.50 ng/mL Indeterminate: suggest serial studies if clinically indicated. Greater than 0.5 ng/mL Consistent with diagnosis of NM 37 Reference Range and Interpretation: TnI (ng/mL) Interpretation Less Than 0.03 ng/mL Not supportive of diagnosis of NM 0.03 - 0.50 ng/mL Indeterminate: suggest serial studies if clinically indicated. Greater than 0.5 ng/mL Consistent with diagnosis of NM 38 Because ethnic data is not always readily [...] 15-29 5 Kidney failure <15 (or dialysis) [address] [facility] Severe Sepsis and Septic Shock Management Bundle Measure requires all lactic acids initially measuring >2.0 mmol/L be repeated. 40 Unable to report test result due to hemolysis. 41 Unable to report test result due to hemolysis. 42 Acute inflammation: >10.00 43 Acute inflammation: >10.00 44 Therapeutic target for the treatment of diabetes Mellitus patients is <7% HBA1C, and in selective patients <6.0%.Please refer to [place] Diabetic care guidelines for further information. 45 Test Performed by: [place] [address] Algorithm Design Engineer: Jefferson Olmos M.D. 46 Desirable <90 Borderline high 90-129 High >129 47 Desirable <170 Borderline high 170-199 High >199 48 Low <40 Borderline low 40-59 Desirable >59 49 Low <40 Borderline low 40-59 Desirable >59 mg/dL 50 Test Performed by: [place] [address] Algorithm Design Engineer: Christiano Lainez III, M.D. 51 Therapeutic target for the treatment of diabetes Mellitus patients is <7% HBA1C, and in selective patients <6.0%.Please refer to [place] Diabetic care guidelines for further information. 52 RUN DATE: 02/14/13 [facility] LAB LIVE PAGE 1 RUN TIME: [address] [place] [address] Specimen Inquiry Name: RON ASHFORD : [address]: Giovana Driver MD Acct: [id number] Unit: [id number] AGE: 17 Location: [facility] Re02/11/13 SEX: M Status: DEP ER SPEC: [id number] GEOFF: 02/11/[address] [facility] [address]: Rosalinda Farah NP REQ: [id number] RECD: 02/12/13 STATUS: SANDRA SUTTON DR: CHRIS Charles MD _ SOURCE: THROAT SPDESC: ORDERED: Throat Beta Str Procedure Result Verified Site Throat Beta Strep Culture Final 02/14/13- 9295 ML Negative For Group A Beta Streptococcus END OF REPORT * ML=Testing performed at Main Lab DEPARTMENT OF PATHOLOGY, [address] [place] [address] Lenyn Smith M.D. Director [facility] Permit #[id number] 53 Serologic response to B. burgdorferi infection is not detected, but cannot rule out early infection during which low or undetectable antibody levels to B. burgdorferi may be present. If clinically indicated, a new serum specimen should be submitted in 7-14 days. Test Performed by: [address] [address] Algorithm Design Engineer: Christiano Lainez III, M.D. 54 RUN DATE: 05/04/12 [facility] LAB LIVE PAGE 1 RUN TIME: [address] [place] [address] Specimen Inquiry Name: RON ASHFORD : [address]: Theo Gardiner MD Acct: [id number] Unit: [id number] AGE: 16 Location: [facility] Re05/02/12 SEX: M Status: DEP ER SPEC: [id number] GEOFF: 05/02/[address] [facility] [address]: Theo Gardiner MD REQ: [id number] RECD: 05/02/12 STATUS: SANDRA SUTTON DR: CHRIS Charles MD,Aníbal _ SOURCE: THROAT SPDESC: ORDERED: Throat Beta Str Procedure Result Verified Site Throat Beta Strep Culture Final 05/04/12- 0850 ML Negative For Group A Beta Streptococcus END OF REPORT * ML=Testing performed at Main Lab DEPARTMENT OF PATHOLOGY, [address] [place] [address] Lenny Smith M.D. Director [facility] Permit #[id number] Procedures Date CPT Code Description Status 07/04/2017 35946 Remove Impact Cerumen irrigation only Completed 04/03/2003 15870 Nebulizer Treatment Completed 12/23/1998 12750 Nebulizer/[place] [address] For Completed Treatment 11/12/1998 84860 Remove Impacted Cerumen with instrumentation Completed Encounters Type Date Location Provider CPT E/M Dx Office Visit 07/04/2017 9:00a [facility] Naresh Sharif C.P.N.P 50046 R73.03 H61.21 Office Visit 05/19/2017 5:30p [facility] Basilio Nielsen III, M.D. 86420 J20.9 Office Visit 05/02/2017 8:15a [facility] Siria AdamesP.N.P 86697 R73.03 Office Visit 04/21/2017 10:00a [facility] Naresh Sharif C.P.N.P 85823 Z00.00 E66.9 K21.9 K76.0 Office Visit 04/19/2017 9:00a Main Office Henny Gil D.O. 06835 K59.00 Office Visit 02/28/2017 11:15a [facility] Aníbal Charles M.D. 70585 I88.9 Office Visit 02/09/2017 8:45a [facility] Basilio Nielsen III, M.D. 68990MS K21.9 K76.0 S40.911D Office Visit 02/01/2017 4:30p [facility] Aníbal Charles M.D. 75415 R59.9 Office Visit 11/28/2016 11:45a [facility] Naresh Sharif C.P.N.P 02844 S93.402A Office Visit 09/26/2016 11:45a [facility] Naresh Sharif C.P.N.P 55020 R06.00 R00.2 Office Visit 08/30/2016 4:15p [facility] Basilio Nielsen III, M.D. 42863 B35.4 Office Visit 06/18/2016 9:30a [facility] Naresh Sharif, C.P.N.P 01166 S06.0x1D Office Visit 06/07/2016 8:45a [facility] Naresh Sharif C.P.N.P 58815 J02.9 Office Visit 05/30/2016 9:00a [facility] Naresh Sharif C.P.N.P 51799 S06.0x1A Office Visit 04/20/2016 7:45a [facility] Aníbal Charles M.D. 71958 Z00.00 Z13.89 K21.9 K76.0 E66.9 R03.0 F90.1 F41.9 Office Visit 04/08/2016 4:30p [facility] Naresh Sharif C.P.N.P 45344 L04.0 Office Visit 03/24/2016 8:00a [facility] Basilio Nielsen III, M.D. 15781HY K21.9 K76.0 Office Visit 02/23/2016 9:15a [facility] Basilio Nielsen III, M.D. 26695KB R07.9 K76.0 Office Visit 02/08/2016 12:15p Main Office Aníbal Charles M.D. 52722 R07.9 E66.9 R03.0 F90.1 Office Visit 10/21/2015 1:00p [facility] Aníbal Charles M.D. 03073 F90.1 Office Visit 10/05/2015 4:00p [facility] Naresh Sharif C.P.N.P 00129 M54.5 Office Visit 07/07/2015 2:00p [facility] Basilio Nielsen III, M.D. 70179 M25.562 Office Visit 04/07/2015 11:00a [facility] Aníbal Charles M.D. 36119 Z00.121 F90.1 E66.9 F81.9 S63.501D S93.401S Office Visit 03/05/2015 1:00p [facility] Aníbal Charles M.D. 65778 R10.31 Office Visit 02/27/2015 12:30p [facility] Naresh Sharif C.P.N.P 29611 H60.8x1 Office Visit 01/20/2015 1:45p [facility] Office Aníbal Charles M.D. 88949 F90.1 F90.1 Office Visit 06/30/2014 11:00a [facility] Basilio Nielsen III, M.D. 01833 465.9 Office Visit 06/26/2014 1:15p [facility] Aníbal Charles M.D. 08925 314.01 465.9 278.00 Office Visit 03/25/2014 8:30a [facility] Aníbal Charles M.D. 73958 V20.2 314.01 V40.0 278.00 V20.2 Office Visit 10/29/2013 12:00p [facility] Naresh Sharif C.P.N.P 70919 891.0 V85.54 701.2 Office Visit 07/30/2013 10:00a Main Office Aníbal Charles M.D. 46256 314.01 278.00 V65.40 Office Visit 07/11/2013 11:45a Main Office Siria AdamesP.N.P 74711 465.9 Office Visit 03/18/2013 3:00p [facility] Aníbal Charles M.D. 44342 V20.2 314.01 278.00 V40.0 V20.2 Office Visit 02/01/2013 4:00p [facility] Aníbal Charles M.D. 63475 314.01 278.00 706.1 Office Visit 01/15/2013 11:45a [facility] Siria AdamesP.N.P 73113 465.9 Office Visit 10/17/2012 8:45a [facility] Aníbal Charles M.D. 15099 314.01 278.00 Office Visit 08/09/2012 9:30a [facility] Basilio Nielsen III, M.D. 66748 959.7 Office Visit 08/08/2012 11:45a [facility] Richard Pal M.D. 07848 959.7 Office Visit 03/12/2012 11:30a [facility] Aníbal Charles M.D. 91240 V20.2 314.01 V40.0 278.00 Office Visit 01/19/2012 12:45p [facility] Siria AdamesP.N.P 62984 465.9 Office Visit 11/17/2011 11:00a Main Office Aníbal Charles M.D. 74313 314.01 278.00 V40.0 Office Visit 09/13/2011 4:00p [facility] Siria AdamesP.N.P 36424 850.0 Office Visit 05/25/2011 9:00a [facility] Aníbal Charles M.D. 68165 314.01 278.00 V40.0 Office Visit 04/22/2011 2:15p [facility] Aníbal Charles M.D. 04664 314.01 Office Visit 02/23/2011 11:00a [facility] Aníbal Charles M.D. 68245 V20.2 V40.0 278.00 530.81 Office Visit 07/08/2010 1:00p [facility] Aníbal Charles M.D. 66243 530.81 Office Visit 07/03/2010 10:30a [facility] Henny Gil D.O. 16757 462 474.10 Office Visit 02/17/2010 11:30a [facility] Aníbal Charles M.D. 07717 V20.2 278.02 V40.0 474.11 Office Visit 2009 11:30a [facility] Henny Gil D.O. 43430 V41.1 Office Visit 02/16/2009 3:30p [facility] Aníbal Charles M.D. 16614 V20.2 278.02 V40.0 474.11 110.5 Office Visit 02/12/2008 3:00p [facility] Office Aníbal Charles M.D. 01961 V20.2 278.02 V40.0 Office Visit 05/16/2007 9:45a [facility] Shannan Umanzor C.P.NJanPJan 28923 465.9 Office Visit 02/13/2007 12:15p [facility] Shannan Umanzor C.P.N.PJan 07695 684 Office Visit 12/07/2006 3:00p [facility] Office Aníbal Charles M.D. 18381 V20.2 278.02 V40.0 Office Visit 04/04/2006 4:45p [facility] Office Aníbal Charles M.D. 01833 382.9 Office Visit 03/29/2006 1:00p [facility] Aníbal Charles M.D. 41636 465.9 461.9 Office Visit 12/09/2005 8:00a [facility] Aníbal Charles M.D. 81638 V20.2 Office Visit 07/12/2005 9:15a [facility] Aníbal Charles M.D. 30656 465.9 Office Visit 02/21/2005 9:15a [facility] Kenisha Del Cid R.P.A.CJan 20273 472.0 Office Visit 07/05/2004 9:30a [facility] Henny Gil D.O. 48866 786.2 Office Visit 06/29/2004 9:45a [facility] Kenisha Del Cid R.P.A.CJan 36541 789.00 Office Visit 05/17/2004 11:00a [facility] Aníbal Charles M.D. 70539 519.1 465.9 Office Visit 04/07/2004 9:15a [facility] Office Henny Gil D.O. 01913 558.9 Office Visit 03/09/2004 1:15p [facility] Aníbal Charles M.D. 23187 465.9 Office Visit 01/17/2004 10:45a Main Office Richard Pal M.D. 41206 461.9 Office Visit 01/05/2004 10:15a [facility] Katarina Longoria 05036 V20.2 Office Visit 04/03/2003 11:00a [facility] Kenisha Del Cid R.P.ABrisa 42813 465.9 Office Visit 01/14/2003 2:15p [facility] Henny Gil D.O. 26417 V20.2 Office Visit 10/18/2002 12:30p [facility] Henny Gil D.O. 25099 382.9 Office Visit 07/02/2002 3:15p [facility] Basilio Nielsen III, M.D. 27390 465.9 Office Visit 05/10/2002 11:45a [facility] Basilio Nielsen III, M.D. 12505 786.2 465.9 Office Visit 04/22/2002 2:15p [facility] Kenisha Del Cid R.P.A.CJan 95912 382.9 Office Visit 04/04/2002 12:00p [facility] Kenisha Del Cid R.P.AJanCJan 67285 382.9 Office Visit 03/11/2002 2:15p [facility] Kenisha Del Cid R.P.AJanCJan 34948 780.6 Office Visit 02/11/2002 12:00p [facility] Richard Pal M.D. 37274 786.2 Office Visit 02/08/2002 3:30p [facility] Richard Pal M.D. 22587 461.9 Office Visit 07/10/2001 2:30p Main Office Aníbal Charles M.D. 16807 382.9 Office Visit 06/20/2001 10:15a Main Office Basilio Nielsen III, M.D. 65359 Office Visit 11/07/2000 2:30p Main Office Zaira Stack M.D. 88542 Office Visit 09/26/2000 2:15p Main Office Zaira Stack M.D. 16888 Office Visit 05/29/2000 12:15p Main Office Siria PerazaPJanNJanPJan 61554 487.1 Plan of Care 07/28/2017 - Kirill Adames.P.N.PN50.812 Left testicular painComments: Evaluation so far has been normal, and pain is not present today. Discussed possibility of injury causing groin pain. Recommended watching and waiting over the next few days - if fever, redness, swelling, worsening pain will seek re- evaluation. To call with an udpate next week.Follow up:As needed
--- OUTSIDE RECORDS SUMMARY | 2017-08-06 17:00 | XMS REPORT ---
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 Unavailable Aníbal Charles MD Primary Care Physician Unavailable Payers Type Date Identification Numbers Payment Provider Subscriber Commercial Policy Number: [id number] [employer] Ron Ashford PayID: [id number] [address] [address] [place] [address] Problems Date Description Provider Status Onset: 10/06/2016 Palpitations Robby Childress, [facility] Active Family History Date Family Member(s) Problem(s) Comments General Diabetes General Heart Disease General Cancer General Hypertension Father due to Brain tumor () - age 37yrs Father Diabetes Father Hypertension Father Brain tumors Mother Palpitations Social History Type Date Description Comments Marital Status Single Lives With Family Occupation Student Cigarette Use Never Smoked Cigarettes ETOH Use Never used alcohol Smoking Patient has never smoked Recreational Drug Use Denies Drug Use Daily Caffeine Does Not Consume Caffeine Exercise Type/Frequency Exercises sporadically Allergies, Adverse Reactions, Alerts Date Description Reaction Status Severity Comments 10/06/2016 Bee Sting active 04/02/2013 NKDA inactive Medications Medication Date Status Form Strength Qnty SIG Indications Ordering Provider Lansoprazole / Active Capsules 30mg 1 daily Lambert, 0000 DR Basilio MD Ibuprofen 00/ Active Tablets 200mg as needed Unknown 0000 Metformin HCL ER 00/ Active Tablets ER 500mg once Sharkness 0000 24HR daily , Naresh Bacon NP Vitamin D3 / Active Capsules 2000Unit once Sharkness 0000 daily , Naresh Bacon NP No Active Hx Unknown Medications 2015 - 2015 Tramadol HCL 04/02/ Hx Tablets 50mg 12tabs bid prn Oscar Molina, 08/26/ Ren 2014 Methylphenidate / Hx 72mg 1 po Unknown HCL ER 0000 - daily 2016 Ibuprofen / Hx Unknown 0000 - 2015 Vyvanse / Hx Capsules 70mg once a Unknown 0000 day in the morning Vital Signs Date Vital Result Comment 07/27/2017 Height 71 inches 5'11" Weight 295.00 lb Heart Rate 76 /min BP Systolic 128 mmHg BP Diastolic 84 mmHg Respiratory Rate 20 /min Body Temperature 97.9 F BMI (Body Mass Index) 41.1 kg/m2 Height Percentile 69 % Weight Percentile >97th 12/06/2016 Height 69 inches 5'9" Weight 286.00 lb BP Systolic 126 mmHg BP Diastolic 64 mmHg Respiratory Rate 18 /min Body Temperature 98.7 F Pain Level 6 BMI (Body Mass Index) 42.2 kg/m2 10/11/2016 Height 69 inches 5'9" Weight 286.50 lb Heart Rate 68 /min BP Systolic Sitting 122 mmHg Lue large cuff BP Diastolic Sitting 84 mmHg Lue large cuff BP Systolic Standing 118 mmHg Lue lagre cuff BP Diastolic Standing 82 mmHg Lue lagre cuff Respiratory Rate 16 /min BMI (Body Mass Index) 42.3 kg/m2 Blood Pressure Percentile 0 % Height Percentile 43 % Weight Percentile >97th 10/06/2016 Height 69 inches 5'9" Weight 288.00 lb with sandals Heart Rate 104 /min BP Systolic Sitting 144 mmHg Rue lg cuff BP Diastolic Sitting 60 mmHg Rue lg cuff BP Systolic Standing 140 mmHg Rue lg cuff BP Diastolic Standing 68 mmHg Rue lg cuff Respiratory Rate 17 /min BMI (Body Mass Index) 42.5 kg/m2 Blood Pressure Percentile 0 % Height Percentile 43 % Weight Percentile >97th 02/15/2016 Height 69 inches 5'9" Weight 278.00 lb Heart Rate 68 /min 76 BP Systolic 134 mmHg left arm, large cuff BP Diastolic 86 mmHg left arm, large cuff BP Systolic Sitting 138 mmHg right arm, large cuff BP Diastolic Sitting 84 mmHg right arm, large cuff BP Systolic Standing 134 mmHg right arm, large cuff BP Diastolic Standing 84 mmHg right arm, large cuff Respiratory Rate 16 /min BMI (Body Mass Index) 41.0 kg/m2 Blood Pressure Percentile 89 % Height Percentile 44 % Weight Percentile >97th 09/10/2014 Height 69 inches 5'9" Weight 249.00 lb Heart Rate 79 /min BP Systolic 128 mmHg BP Diastolic 72 mmHg BMI (Body Mass Index) 36.8 kg/m2 Blood Pressure Percentile 80 % Height Percentile 51 % Weight Percentile >97th 04/02/2013 Height 66 inches 5'6" Weight 196.00 lb Heart Rate 66 /min BP Systolic 138 mmHg BP Diastolic 64 mmHg BMI (Body Mass Index) 31.6 kg/m2 Blood Pressure Percentile 98 % Height Percentile 31 % Weight Percentile >97th Results Description No Information Procedures Date CPT Code Description Status 10/10/2016 22954 Holter Monitor Review (24 hr)dr motley & benny Completed only 10/07/2016 96322 ECG Monitor/Recording W/Visual Superimposition Scanning Completed 10/06/2016 37451 EKG Tracing & Interpretation Completed 03/22/2016 20246 EEG Recording Awake & Drowsy Completed 02/15/2016 91685 EKG Tracing & Interpretation Completed 04/02/2013 52307 Rad Exam; Foot Comp Completed Encounters Type Date Location Provider CPT E/M Dx Office Visit 12/06/2016 [facility] Mock, 29264 S90.32xA 1:30p Of Josias AGUILAR S93.402A Office Visit 10/11/2016 8:40a [facility] Robby Childress, 22045 R00.2 DO [facility] Office Visit 10/06/2016 10:20a [facility] Robby Childress, 22345 R00.2 DO [facility] Office Visit 06/23/2016 1:10p [facility] Louis Dupont, 05712 R55 Ren R20.0 Office Visit 02/15/2016 9:00a [facility] [place], 25588 R07.9 [facility] MD, FACC, FSCAI R00.2 Office Visit 09/10/2014 1:30p [facility] Stuart M.D. 94700 826.0 Josias Office Visit 04/30/2013 2:00p [facility] Oscar Molina, 76302 845.00 Josias Mcclure Office Visit 04/02/2013 2:45p [facility], 48668 845.00 Josias Mcclure Plan of Care Future Appointment(s):09/28/2017 9:30 am - Robby Talavera MD at [facility]
[2017-08-06 17:11] VITALS: BP 121/75
--- NOTE | 2017-08-06 17:44 | RAD ---
INDICATION: Foot pain after a fall COMPARISON: Foot x-ray dated September 05, 2014 TECHNIQUE: 3 views of the right foot were obtained. FINDINGS: The adequately corticated bones are properly aligned. Joint spaces appear maintained. No fracture, dislocation or focal bony abnormality is seen. IMPRESSION: Normal radiograph of the right foot. If the patient's symptoms persist, follow-up imaging is recommended.
[2017-08-06] MEDS ORDERED: Ibuprofen TAB* 600 MG PO ONE (18:07)
--- NOTE | 2017-08-06 18:13 | RAD ---
INDICATION: Right ankle pain after a fall COMPARISON: Right ankle radiograph dated April 03, 2015 TECHNIQUE: 3 views of the right ankle were obtained. FINDINGS: At the medial aspect of the dome of the talus there is a subchondral lucency measuring 3 mm in greatest dimension that was not definitely seen on the previous ankle radiograph. There is a well-circumscribed bony focus just distal to the fibula is unchanged from the previous radiograph. The bones are otherwise well corticated and properly aligned. IMPRESSION: INTERVAL APPEARANCE OF A 3 MM SUBCHONDRAL LUCENCY BENEATH THE CORTEX OF THE MEDIAL TALAR DOWN WHICH COULD BE AN OSTEOCHONDRAL DEFECT IN THE CORRECT CLINICAL SETTING.
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
== END 2017-08-06 18:30 | disposition home or self-care (01) ==
LOC: UCEAST 16:53
DX: S93.401A Sprain of unspecified ligament of right ankle, initial encounter (principal); X50.1XXA Overexertion from prolonged static or awkward postures, initial encounter; Y93.89 Activity, other specified; Y92.79 Other farm location as the place of occurrence of the external cause; Y99.0 Civilian activity done for income or pay
CPT/HCPCS: 99213; A9270-GY; G0463

== ENCOUNTER 2017-09-24 20:31 | Emergency (ER) | payer OTHER ==
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
[2017-09-24] MEDS ORDERED: Ondansetron INJ* 2 MG/ML VIAL IV ONE (20:51)
[2017-09-24] MEDS ORDERED: NS 0.9% 1000 ML* 1,000 ML IV ONE (20:51)
[2017-09-24] MEDS ORDERED: Ondansetron ODT TAB* 4 MG PO ONE (20:51)
[2017-09-24 21:01] VITALS: BP 159/71
[2017-09-24] MEDS ORDERED: Morphine VIAL* 10 MG/ML 1 ML VIAL IV ONE (21:08)
== END 2017-09-24 21:17 | disposition short-term general hospital (02) ==
LOC: UCEAST 20:31
DX: S39.91XA Unspecified injury of abdomen, initial encounter (principal); V17.0XXA Pedal cycle driver injured in collision with fixed or stationary object in nontraffic accident, initial encounter; Y93.55 Activity, bike riding; Y92.9 Unspecified place or not applicable; R10.11 Right upper quadrant pain; M54.2 Cervicalgia; R42 Dizziness and giddiness; R11.0 Nausea; R73.03 Prediabetes; K21.9 Gastro-esophageal reflux disease without esophagitis; F90.9 Attention-deficit hyperactivity disorder, unspecified type; F41.9 Anxiety disorder, unspecified; F20.9 Schizophrenia, unspecified; F31.9 Bipolar disorder, unspecified; Z91.030 Bee allergy status; Z82.49 Family history of ischemic heart disease and other diseases of the circulatory system; Z83.3 Family history of diabetes mellitus; Z82.3 Family history of stroke
CPT/HCPCS: 96360; 96374; 96376; 99214; G0463; J2270; J2405

== ENCOUNTER 2017-09-24 21:34 | Emergency (ER) | payer OTHER ==
[2017-09-24] MEDS ORDERED: Metoclopramide IV* 5 MG/ML 2 ML VIAL IV ONE (21:47)
[2017-09-24] MEDS ORDERED: fentaNYL* 50 MCG/ML 2 ML VIAL (100 MCG VIAL) IV PRN (21:47)
[2017-09-24] MEDS ORDERED: fentaNYL* 50 MCG/ML 2 ML VIAL (100 MCG VIAL) IV ONE (21:47)
[2017-09-24] MEDS ORDERED: NS 0.9% 1000 ML* 2,000 ML IV ONE (21:47)
[2017-09-24 22:13] LABS: ABS Basophils 0.1 10^3/ul (0-0.2); ABS Eosinophils 0.2 10^3/ul (0-0.6); ABS Lymphocytes 3.8 10^3/ul (1.0-4.8); ABS Neutrophils 6.3 10^3/ul (1.5-7.7); ABS Nucleated RBC 0 10^3/ul; Eosinophil % 1.6 % (0-6); Hematocrit 45 % (42-52); Hemoglobin 14.8 g/dl (14.0-18.0); Lymphocyte % 33.7 % (25-47); Mean Corpuscular HGB Conc 33 g/dl (31-36); Mean Corpuscular Hemoglobin 28 pg (27-31); Mean Corpuscular Volume 84 fL (80-94); Mean Platelet Volume 8.5 um3 (7.4-10.4); Nucleated Red Blood Cells % 0; Platelet Count 242 10^3/ul (150-450); Red Blood Count 5.32 10^6/ul (4.0-5.4); Red Cell Distribution Width 14 % (10.5-15); White Blood Count 11.4 10^3/ul (3.5-10.8)
[2017-09-24 22:38] LABS: EGFR Non-African American 142.9 (>60)
[2017-09-24 23:06] LABS: Urine Appearance Clear; Urine Blood Negative (Negative); Urine Color Yellow; Urine Ketones Negative (Negative); Urine Protein Negative (Negative); Urine Specific Gravity 1.017 (1.010-1.030); Urine Urobilinogen Positive (Negative)
[2017-09-25] MEDS ORDERED: Iodixanol* (CONTRAST) 320 MG/ML 100 ML SDV IV ONE (00:08)
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
[2017-09-25 01:32] VITALS: BP 138/78
--- NOTE | 2017-09-25 07:53 | RAD ---
INDICATION: Head injury. COMPARISON: Comparison is made with a prior CT of the brain from March 21, 2016. TECHNIQUE: Contiguous axial sections of the brain were obtained from the skull base to the vertex without contrast. FINDINGS: The ventricles, cisterns and sulci are within normal limits. No significant focal abnormality or mass effect is seen. There is no evidence for hemorrhage. No fracture is seen. There is mild mucosal thickening within the right maxillary sinus. The visualized portion of the paranasal sinuses and mastoid air cells otherwise appear clear. IMPRESSION: NO EVIDENCE FOR ACUTE INTRACRANIAL ABNORMALITY.
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
--- NOTE | 2017-09-25 08:03 | RAD ---
HISTORY: Trauma, right upper quadrant pain COMPARISONS: CT of the abdomen and pelvis dated April 29, 2016 TECHNIQUE: Multiple contiguous axial CT scans were obtained of the chest, abdomen, and pelvis after the administration of intravenous contrast. Coronal and sagittal multiplanar reformations are submitted for review.. Oral contrast was not administered. Delayed images were obtained through the abdomen and pelvis. FINDINGS: CHEST NECK AND THYROID: The lower neck and thyroid are unremarkable. CHEST WALL: There is no lower cervical, axillary, or supraclavicular lymphadenopathy by size criteria. HEART AND PERICARDIUM: The heart is unremarkable. AORTA AND PULMONARY VASCULATURE: The aorta and pulmonary vasculature are normal. MEDIASTINUM: There is soft tissue within anterior mediastinum suggestive of residual thymic tissue given the patient's age. WAYNE: There is no hilar lymphadenopathy by size criteria. AIRWAY AND ESOPHAGUS: The airway is unremarkable, without endobronchial filling defect. The esophagus is grossly normal. LUNG PARENCHYMA: The lungs are clear. PLEURA: No pleural abnormalities are noted. BONES AND SOFT TISSUES: No bone or soft tissue abnormalities are noted. ABDOMEN/PELVIS: LIVER: The liver is diffusely low in attenuation compared to the spleen. There are no focal hepatic parenchymal masses. BILE DUCTS: There is no intrahepatic or extrahepatic biliary dilatation. GALLBLADDER: The gallbladder is incompletely distended but is grossly normal. PANCREAS: The pancreas is normal, without mass or ductal dilatation. SPLEEN: Normal in size and appearance. UPPER GI TRACT: Evaluation of the gastrointestinal tract is limited by incomplete gastric distention. The upper GI tract is unremarkable. SMALL BOWEL & MESENTERY: The small bowel is normal in contour, course, and caliber. There is no obstruction or dilatation. COLON: The colon is normal in contour, course, caliber. There is no pericolonic inflammatory change. ADRENALS: Normal bilaterally. KIDNEYS: The kidneys are normal in shape, size, contour, and axis. There is no hydronephrosis or nephrolithiasis. BLADDER: The bladder is incompletely distended but is grossly normal. PELVIC ORGANS: The prostate gland is normal. The seminal vesicles are symmetric. AORTA: The aorta is normal. IVC: Unremarkable LYMPH NODES: There is no lymphadenopathy by size criteria. ABDOMINAL WALL: There is no evidence for abdominal wall hernia. BONES AND SOFT TISSUES: There is mild loss of intervertebral disc height. There is no acute osseous injury. OTHER: None IMPRESSION: 1. SOFT TISSUE DENSITY WITHIN THE ANTERIOR MEDIASTINUM MOST CONSISTENT WITH RESIDUAL THYMIC TISSUE GIVEN THE PATIENT'S AGE. 2. FATTY INFILTRATION OF THE LIVER. 3. NO ACUTE CT PATHOLOGY OF THE VISUALIZED CHEST, ABDOMEN, OR PELVIS.
== END 2017-09-25 01:30 | disposition home or self-care (01) ==
LOC: ED 21:34
DX: S39.91XA Unspecified injury of abdomen, initial encounter (principal); S16.1XXA Strain of muscle, fascia and tendon at neck level, initial encounter; V19.88XA Pedal cyclist (driver) (passenger) injured in other specified transport accidents, initial encounter; Y92.9 Unspecified place or not applicable; K76.0 Fatty (change of) liver, not elsewhere classified; M47.812 Spondylosis without myelopathy or radiculopathy, cervical region; R73.03 Prediabetes; Z79.84 Long term (current) use of oral hypoglycemic drugs
CPT/HCPCS: 36415; 70450; 71260; 72125; 74177; 80053; 81003; 83605; 85025; 86850; 86900; 86901; 96361; 96374; 96375; 99283; J2765; J3010; Q9967

== ENCOUNTER 2017-11-23 12:50 | Emergency (ER) | payer OTHER ==
[2017-11-23 14:10] LABS: Urine Appearance Cloudy; Urine Blood Negative (Negative); Urine Color Yellow; Urine Ketones Negative (Negative); Urine Protein Negative (Negative); Urine Specific Gravity 1.019 (1.010-1.030); Urine Urobilinogen Negative (Negative)
--- NOTE | 2017-11-23 14:53 | RAD ---
HISTORY: R TESTICLE PAIN COMPARISONS: July 25, 2017 TECHNIQUE: Multiple transverse and longitudinal ultrasound images were obtained of the scrotum, using grayscale, color Doppler, and spectral Doppler imaging. FINDINGS: RIGHT: RIGHT TESTICLE: The right testicle measures 4.8 x 2.6 x 3.5 cm. The right testicle is homogeneous in echotexture, without testicular parenchymal mass. Normal arterial and venous waveforms are identified within the right testicle on spectral Doppler imaging. RIGHT EPIDIDYMIS: The right epididymis measures 1.6 cm at the head. There is a 0.6 cm epididymal head cyst. RIGHT SCROTUM: There is no hydrocele or varicocele. LEFT: LEFT TESTICLE: The left testicle measures 4.9 x 2.5 x 3.7 cm. The left testicle is homogeneous in echotexture, without testicular parenchymal mass. Normal arterial and venous waveforms are identified within the left testicle on spectral Doppler imaging. LEFT EPIDIDYMIS: The left epididymis measures 1.2 cm at the head. There is a 0.5 cm epididymal head cyst. LEFT SCROTUM: There is no hydrocele or varicocele. OTHER: None IMPRESSION: 1. NO TESTICULAR PARENCHYMAL MASS. 2. NO SONOGRAPHIC FEATURES OF TORSION. PLEASE NOTE THAT PARTIAL OR INTERMITTENT TORSION MAY BE SONOGRAPHICALLY NORMAL. 3. OTHERWISE UNREMARKABLE ULTRASOUND OF THE SCROTUM.
[2017-11-23 15:06] LABS: Hematocrit 46 % (42-52); Hemoglobin 15.7 g/dl (14.0-18.0); Mean Corpuscular HGB Conc 34 g/dl (31-36); Mean Corpuscular Hemoglobin 28 pg (27-31); Mean Corpuscular Volume 82 fL (80-94); Platelet Count 293 10^3/ul (150-450); Red Blood Count 5.67 10^6/ul (4.00-5.40); Red Cell Distribution Width 14 % (10.5-15); White Blood Count 10.9 10^3/ul (3.5-10.8)
--- NOTE | 2017-11-23 15:25 | ED ---
Abdominal Pain/Male - HPI Summary HPI Summary: This is ashwin Alananuja Ellington documenting for attending Jimmy Nettles MD. This patient is a 22 year old M presenting to [facility] with a chief complaint of an aching pain on the right side of his groin since 2 days ago. The testicle itself does not hurt. The pain is on the right side of his groin and radiates to his abdomen. The patient rates the pain 9/10 in severity at its worse and 7/ 10 currently. The pain was present for 2 hours last night before spontaneously resolving and returned again this morning. Symptoms aggravated by coughing, breathing hard. Not aggravated by bowel movements. Symptoms sometimes alleviated by lying down. He came to the [facility] 4 months ago with the same pain and was diagnosed with a hernia. He was told to see Robby Talavera MD who said it was not a hernia and also ruled out epididymitis. He was told to see Dr. Talavera again in 3 months if the pain was still present. The patient reported some pain after 3 months, [address] Dr. Talavera said there was not enough pain to worry about it. - History of Current Complaint Chief Complaint: EDAbdPain Stated Complaint: PELVIC PAIN Time Seen by Provider: 11/23/17 13:49 Hx Obtained From: Patient Onset/Duration: Lasting Weeks - On and off since 4 months ago Timing: Intermittent, Lasting Hours - Lasts hours at a time Severity Initially: Severe Severity Currently: Severe Pain Intensity: 9 Pain Scale Used: 0-10 Numeric Location: Groin Radiates: Yes Character: Other: - aching Aggravating Factor(s): Deep Breaths, Other: - coughing Alleviating Factor(s): Position - Sometimes alleviated by lying down - Allergies/Home Medications Allergies/Adverse Reactions: Allergies Allergy/AdvReac Type Severity Reaction Status Date / Time bee venom protein (honey bee) Allergy Swelling Verified 09/24/17 21:44 Home Medications: Home Medications Cholecalciferol TAB* [Vitamin D TAB*] 2,000 units PO DAILY 11/23/17 [History Confirmed 11/23/17] Metformin ER (NF) 1,000 mg PO QPM 11/23/17 [History Confirmed 11/23/17] Pantoprazole TAB (NF) [Protonix TAB (NF)] 40 mg PO DAILY 11/23/17 [History Confirmed 11/23/17] PMH/Surg Hx/FS Hx/Imm Hx Endocrine/Hematology History: Reports: Hx Diabetes - Pre-diabetic Denies: Hx Thyroid Disease Cardiovascular History: Denies: Hx Congestive Heart Failure, Hx Deep Vein Thrombosis, Hx Hypertension , Hx Myocardial Infarction, Hx Pacemaker/ICD Respiratory History: Denies: Hx Asthma, Hx Chronic Obstructive Pulmonary Disease (COPD), Hx Lung Cancer, Hx Pneumonia, Hx Pulmonary Embolism GI History: Reports: Hx Gastroesophageal Reflux Disease Denies: Hx Gall Bladder Disease, Hx Gastrointestinal Bleed, Hx Ulcer, Hx Urosepsis History: Denies: Hx Kidney Stones, Hx Renal Disease Sensory History: Denies: Hx Hearing Aid Neurological History: Reports: Other Neuro Impairments/Disorders - Concussion Denies: Hx Dementia, Hx Migraine, Hx Seizures, Hx Transient Ischemic Attacks (TIA) Psychiatric History: Reports: Hx Anxiety, Hx Attention Deficit Hyperactivity Disorder, Hx Depression, Hx Panic Disorder - panic attacks Denies: Hx Eating Disorder, Hx Schizophrenia, Hx Bipolar Disorder, Hx of Violent Episodes Against Others - Surgical History Surgery Procedure, Year, and Place: tonsillectomy; adenectomy; tubes in bilat ears Infectious Disease History: No Infectious Disease History: Denies: Hx Clostridium Difficile, Hx Hepatitis, Hx Human Immunodeficiency Virus (HIV), Hx of Known/Suspected MRSA, Hx Shingles, Hx Tuberculosis, Hx Known/ Suspected VRE, Hx Known/Suspected VRSA, History Other Infectious Disease, Traveled Outside the [place] in Last 30 Days - Family History Known Family History: Positive: Cardiac Disease - grandfather, mother with palpitations of unk etiology, Diabetes - paternal , Other - CVA Negative: Hypertension - Social History Alcohol Use: None Hx Substance Use: No Substance Use Type: Reports: None Hx Tobacco Use: No Smoking Status (MU): Never Smoked Tobacco Have You Smoked in the Last Year: No Review of Systems Negative: Fever, Chills Negative: Erythema Negative: Sore Throat Negative: Chest Pain Negative: Shortness Of Breath, Cough Positive: Abdominal Pain - pain on right side of groin, radiating to his lower abdominal area. Negative: Vomiting, Nausea Negative: dysuria, hematuria Negative: Myalgia, Edema Negative: Rash Neurological: Other - Denies dizziness All Other Systems Reviewed And Are Negative: Yes Physical Exam - Summary Physical Exam Summary: Patient was examined upright and supine Constitutional: Well-developed, Well-nourished, Alert. (-) Distressed Skin: Warm, Dry HENT: Normocephalic; Atraumatic Eyes: Conjunctiva normal Neck: Musculoskeletal ROM normal neck. (-) JVD, (-) Stridor, (-) Tracheal deviation Cardio: Rhythm regular, rate normal, Heart sounds normal; Intact distal pulses; The pedal pulses are 2+ and symmetric. Radial pulses are 2+ and symmetric. (-) Murmur Pulmonary/Chest wall: Effort normal. (-) Respiratory distress, (-) Wheezes, (-) Rales Abd: Soft, (-), epigastric tenderness, (-) Distension, (-) Guarding, (-) Rebound , (-) no palpable hernia Musculoskeletal: (-) Edema Lymph: (-) Cervical adenopathy Neuro: Alert, Oriented x3 Psych: Mood and affect Normal Triage Information Reviewed: Yes Vital Signs On Initial Exam: Initial Vitals Temp Pulse Resp BP Pulse Ox 98.4 F 94 18 131/66 96 11/23/17 13:02 11/23/17 13:02 11/23/17 13:02 11/23/17 13:02 11/23/17 13:02 Vital Signs Reviewed: Yes Diagnostics - Vital Signs Vital Signs Temp Pulse Resp BP Pulse Ox 11/23/17 13:02 98.4 F 94 18 131/66 96 - Laboratory Lab Results: Lab Results 11/23/17 11/23/17 Range/Units 13:56 14:59 WBC 10.9 H (3.5-10.8) 10^3/ul RBC 5.67 H (4.00-5.40) 10^6/ul Hgb 15.7 (14.0-18.0) g/dl Hct 46 (42-52) % MCV 82 (80-94) fL MCH 28 (27-31) pg MCHC 34 (31-36) g/dl RDW 14 (10.5-15) % Plt Count 293 (150-450) 10^3/ul MPV 8.0 (7.4-10.4) um3 ESR Pending Urine Color Yellow Urine Appearance Cloudy Urine pH 7.0 (5-9) Ur Specific [place] 1.019 (1.010-1.030) Urine Protein Negative (Negative) Urine Ketones Negative (Negative) Urine Blood Negative (Negative) Urine Nitrate Negative (Negative) Urine Bilirubin Negative (Negative) Urine Urobilinogen Negative (Negative) Ur Leukocyte Esterase Negative (Negative) Urine Glucose Negative (Negative) Result Diagrams: 11/23/17 14:59 11/23/17 14:59 Lab Statement: Any lab studies that have been ordered have been reviewed, and results considered in the medical decision making process. - CT Abd/Pelvic CT CT Interpretation Completed By: Radiologist - Findings consistent with hepatic steatosis. Physician has reviewed this report. - Ultrasound No standard instances Ultrasound Interpretation Completed By: Radiologist - Testicular US revealed: 1. NO TESTICULAR PARENCHYMAL MASS. 2. NO SONOGRAPHIC FEATURES OF TORSION. PLEASE NOTE THAT PARTIAL OR INTERMITTENT TORSION MAY BE SONOGRAPHICALLY NORMAL. 3. OTHERWISE UNREMARKABLE ULTRASOUND OF THE SCROTUM. Physician has reviewed this report. Abdominal Pain Fem Course/Dx - Course Assessment/Plan: Patient understands need for close follow-up. No PE findings suggest epididymis. - Diagnoses Provider Diagnoses: Lymphadenopathy Discharge - Sign-Out/Discharge Documenting (check all that apply): Patient Departure - DC - Discharge Plan Condition: Stable Disposition: HOME Prescriptions: traMADol TAB* [Ultram*] 50 mg PO Q6HR PRN #10 tab MDD 4 PRN Reason: Pain - Moderate To Severe Patient Education Materials: Lymphadenopathy (ED) Referrals: Naresh Sharif NP [Primary Care Provider] - [facility] [Outside] Additional Instructions: Follow up with your PCP or the [facility] in 2-3 days. RETURN TO THE EMERGENCY DEPARTMENT FOR CHANGING OR WORSENING SYMPTOMS.
[2017-11-23 15:41] LABS: EGFR Non-African American 143.8 (>60)
[2017-11-23] MEDS ORDERED: oxyCODONE/Acetamin 5/325 MG* TAB PO ONE (15:42)
[2017-11-23] MEDS ORDERED: Iodixanol* (CONTRAST) 320 MG/ML 100 ML SDV IV ONE (15:57)
--- NOTE | 2017-11-23 17:38 | RAD ---
Indication: Right groin pain. Contrast: Administered 141.1 ml of VISAPAQUE 320 mg/ml CT of the abdomen and pelvis was performed after oral and IV contrast administration. Coronal and sagittal reconstructed images were obtained. Comparison is made with previous exam dated April 29, 2016. The lung bases demonstrate no pleural fluid, nodules or masses. Heart is of normal size without evidence of pericardial effusion. Liver is normal in size. It is diffusely decreased in density consistent with hepatic steatosis. The gallbladder demonstrates no calcified gallstones. No pericholecystic fluid or wall thickening is noted. The pancreas demonstrates no mass or pancreatic duct dilatation. The spleen is normal in size. No adrenal masses are noted. The kidneys demonstrate symmetric nephrograms without evidence of focal masses. No retroperitoneal lymphadenopathy is noted. CT of the pelvis demonstrates no retroperitoneal or pelvic lymphadenopathy. Stool is present throughout the colon. Appendix is visualized and is normal. Mesenteric lymph nodes are noted in the right lower quadrant measuring up to 7 mm. This may represent mesenteric adenitis. No inguinal hernias are identified. No evidence of abdominal wall hernias are noted. IMPRESSION: Findings consistent with hepatic steatosis. No evidence of hernias are noted. Scattered lymph nodes measuring up to 7 mm in the right lower quadrant mesentery. I cannot totally exclude an mesenteric adenitis.
[2017-11-23 18:20] VITALS: BP 126/69
== END 2017-11-23 18:42 | disposition home or self-care (01) ==
LOC: ED 12:50
DX: R59.1 Generalized enlarged lymph nodes (principal); R73.03 Prediabetes; K21.9 Gastro-esophageal reflux disease without esophagitis; Z79.84 Long term (current) use of oral hypoglycemic drugs; Z79.899 Other long term (current) drug therapy
CPT/HCPCS: 36415; 74177; 76870; 80053; 81003; 85027; 85652; 99282; A9270-GY; Q9967

== ENCOUNTER 2018-04-13 12:45 | Emergency (ER) | payer OTHER ==
--- OUTSIDE RECORDS SUMMARY | 2018-04-13 13:02 | XMS REPORT | Continuity of Care Document ---
:1995 External Reference #:[id number] Author Name Bismark Adames Address [address] [place] [address] Care Team Providers Name Role Phone Basilio Nielsen III, M.D. 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 Active Onset: 03/12/2012 Attention deficit hyperactivity Aníbal Charles M.D. Active disorder Onset: 03/05/2015 Non-alcoholic fatty liver Aníbal Charles M.D. Active Onset: 02/09/2017 Gastroesophageal reflux disease Basilio Nielsen III, M.D. Active Family History Date Family Member(s) Problem(s) Comments Father in 2001 from brain tumor Social History Type Date Description Comments Sex Unknown Smoke-Free Home is smoke-free General Mother remarried. Mom, step dad, brother, sister, and cousin live at home Tobacco Use Start: Unknown Patient has never smoked Smoking Status Reviewed: 03/23/18 Patient has never smoked Allergies, Adverse Reactions, Alerts Date Description Reaction Status Severity Comments 02/12/2008 No Drug Allergies Active Medications Medication Date Status Form Strength Qnty SIG Indications Ordering Provider Fluticasone 10/03/ Active Ointment 0.005% 30gm apply to L20.9 Naresh Propionate 2018 affected Sharkness, area twice C.P.N.P daily for 5 - 7 days Pantoprazole 05/11/ Active Tablets DR 40mg 30tabs Take One R07.9 Naresh Sodium 2018 Tablet By Sharkness, Mouth C.P.N.P Every Day K21.9 Onetouch Ultra 05/02/2017 Active Strips 100units use as R73.03 Naresh Blue directed Sharkness, C.P.N.P True Metrix 05/02/2017 Active Strips 100units please use Naresh Blood to test Sharkness, Glucosetest blood C.P.N.P Strips glucose twice daily Dx=R73.03 True Metrix Go 05/02/2017 Active Kit w/ 1units use as R73.03 Naresh Blood Glucose De directed Sharkness, Meter vi C.P.N.P ce Truedraw 05/02/2017 Active Misc 1units Use as R73.03 Naresh Lancing Device directed Sharkness, C.P.N.P Metformin HCL 05/02/2017 Active Tablets ER 50 90tabs take 3 R73.03 Naresh ER 24HR 0m tablets by Kole, g mouth at C.P.N.P dinnertime Vitamin D 04/29/2017 Active Capsules 20 30caps 1 by mouth Naresh 00 every day Sharkness, Un C.P.N.P it Acyclovir 12/14/2017 - Hx Ointment 5% 30gm apply 5 B00.1 Naresh 03/23/2018 times daily Sharkness, as needed C.P.N.P for cold sores Mupirocin 12/14/2017 - Hx Ointment 2% 22gm apply three B00.1 Naresh 03/23/2018 times daily Sharkness, C.P.N.P Acyclovir 12/14/2017 - Hx Tablets 40 15tabs take one B00.1 Naresh 12/19/2017 0m tablet by Kole, g mouth three C.P.N.P times a day for 5 days Azithromycin 05/19/2017 - Hx Tablets 25 6tabs 2 today then J20.9 Basilio Y. 05/24/2017 0m 1\\day x 4 Lambert, g days III, M.D. Pantoprazole 05/11/2017 - Hx Tablets DR 40 30tabs Take One R07.9 Naresh Sodium 03/23/2018 mg Tablet By Sharkness, Mouth Every C.P.N.P Day K21.9 Metformin HCL ER 05/02/2017 - Hx Tablets ER 500mg 60tabs Please R73.03 Naresh (Mod) 05/02/2017 24HR take 1 Sharkness, tablet in C.P.N.P the evening once daily for 2 weeks and then increase to two tablets once daily in the evening Onetouch Delica 05/02/2017 - Hx Misc 30G 100units Use as R73.03 Naresh Lancets Fine 30G 05/02/2017 directed Sharkness, C.P.N.P Onetouch Ultra 05/02/2017 - Hx Kit w/Devic 1units use as R73.03 Naresh Mini 05/02/2017 e directed Kole, C.P.N.P Polyethylene 04/19/2017 - Hx Powder 3350NF 527gm 4-5 K59.00 Henny Glycol 3350 04/26/2017 capfuls in Jeffery, D.O. 20 ounces of Gatorade today then 1 cupful in liquid daily for 7 days Cephalexin 02/28/2017 - Hx Capsules 500mg 30caps 1 tab 3 I88.9 Aníbal 03/10/2017 times a Sendek, day for 10 M.D. days Econazole Nitrate 08/30/2016 - Hx Cream 1% 85gm apply B35.4 Basilio Y. 09/26/2016 topically Lambert, once or III, M.D. twice daily Methylphenidate 06/30/2016 - Hx Tablets ER 36mg 2 PO by F90.1 Aníbal HCL ER 09/26/2016 24HR mouth each Sendek, morning M.D. Sertraline HCL 06/30/2016 - Hx Tablets 50mg 1 by mouth Aníbal 09/26/2016 every day SendRen brown Methylphenidate 05/02/2016 - Hx Tablets ER 54mg 30tabs 1 by mouth F90.1 Aníbal HCL ER 06/30/2016 every day SendRen brown Amoxicillin/Clavu 04/08/2016 - Hx Tablets 875-125 20tabs 1 tablet L04.0 Naresh lanate Potassium 04/18/2016 mg twice Sharkness, daily for C.P.N.P 10 days Lansoprazole 02/23/2016 - Hx Capsules 30mg 30caps Take One R07.9 Basilio Y. 05/11/2017 DR Ozzie By Makeda Nielsen III, M.D. Every Day K21.9 Naproxen 10/05/2015 [...] by F90.1 Aníbal HCL ER 05/02/2016 mouth Melvin, every day MJanDJan at in the morning Clindamycin/Benzo 02/01/2013 - [...] 45gm apply bid Aníbal 05/10/2011 to jie CharlesDJan area Methylphenidate 04/22/2011 - Hx Tablets ER 36mg 30tabs 1 po qd 314.01 Aníbal HCL ER 11/17/2011 Ren Charles Methylphenidate 03/19/2011 - Hx Tablets ER 27mg 30tabs 1 po at Naresh HCL ER 04/22/2011 am Kirill Sharif.P.N.P Nexium 02/23/2011 - Hx Capsules DR 20mg 30caps 1 PO qd 530.81 Aníbal 02/23/2011 Ren Charles Omeprazole 02/23/2011 - Hx Capsules DR 20mg 30caps 1 PO qd 530.81 Aníbal 04/24/2011 Ren Charles Mentax 02/16/2009 - Hx Cream 1% 30gm apply bid 110.5 Aníbal 03/02/2009 to the natalie Charles M.D. Cefzil 05/18/2007 - Hx Suspension 250mg/5 200cc 2 TSP PO Shannan 05/28/2007 ML bid Noé C.P.N.P. Keflex 02/13/2007 - Hx Tablets 500mg 20tabs 1 po bid 684 Shannan 02/23/2007 Noé C.P.N.P. Ibuprofen 02/13/2007 - Hx Suspension 100mg/5 240units 4 TSP PO 684 Shannan 02/23/2007 ML Q8H prn Jovany Umanzor C.P.N.P. Augmentin ES-600 04/04/2006 - Hx Suspension 600mg;4 150ml 1 and 1/2 382.9 Aníbal 04/14/2006 2.9mg/5 tsp bid Sendek, SHINE CallawayDJan Zithromax 03/29/2006 - Hx Suspension 200mg/5 30ml 8 ml day 461.9 Aníbal 04/03/2006 ML 1 Ren Charles 4 ml q d for days Vyvanse - Hx Capsules 70mg 1 capsule Unknown 11/28/2016 once daily Medications Administered in Office Medication Date Status Form Strength Qnty SIG Indications Ordering Provider TB Mary Test 11/12/18 Administered Injection Shannan 99 Noé C.P.N.P. Immunizations CPT Code Status Date Vaccine Lot # [id number] Given 04/21/2017 Flu Inj Quadrivalent .5ml Preserve Free [id number] 68869 Given 01/20/2015 Flu Inj Quadrivalent .5ml Preserve Free [id number] 77592 Given 03/25/2014 Meningococcal A,C,Y,W135 (Menactra) Preservative [id number] Free 77838 Given 03/25/2014 Flu Mist Quadrivalent [id number] 87588 Given 10/29/2013 HPV 4 Gardasil 4 [id number] 60289 Given 03/18/2013 Flu Mist Quadrivalent [id number] 80708 Given 03/18/2013 HPV 4 Gardasil 4 [id number] 59605 Given 03/12/2012 HPV 4 Gardasil 4 [id number] 04690 Given 03/12/2012 Flu Vacc Nasal Mist Trivalent (FluMist) [id number] 35710 Given 02/23/2011 Flu Vacc Nasal Mist Trivalent (FluMist) [id number] 67416 Given 02/23/2011 Hepatitis A Vaccine Pediatric/Adolescent 2 Dose [id number] Schedule 17285 Given 02/17/2010 Flu Vacc Nasal Mist Trivalent (FluMist) [id number] 30029 Given 02/17/2010 Hepatitis A Vaccine Pediatric/Adolescent 2 Dose [id number] Schedule 09025 Given 02/16/2009 Meningococcal A,C,Y,W135 (Menactra) Preservative [id number] Free 06984 Given 02/16/2009 TdaP Immunization Age 7+ [id number] 85907 Given 02/16/2009 Flu Vacc Nasal Mist Trivalent (FluMist) [id number] 47760 Given 02/12/2008 Flu Vacc Nasal Mist Trivalent (FluMist) [id number] 83875 Given 02/12/2008 Varicella (Chicken Pox) Immunization [id number] 17326 Given 12/18/2001 Poliomyelitis Immunization 07935 Given 12/18/2001 MMR Virus Immunization 22399 Given 12/18/2001 DTaP Immunization under age 7 61790 Given 03/11/1999 DTaP & Hib Immunization 19596 Given 03/11/1999 Oral Poliovirus Immunization 20167 Given 11/12/1998 Varicella (Chicken Pox) Immunization 29357 Given 11/12/1998 MMR Virus Immunization 37955 Given 05/05/1998 DTaP Immunization under age 7 52947 Given 05/05/1998 Hib/Hep B Combination Vaccine 72406 Given 03/03/1998 Hib Immunization 95164 Given 03/03/1998 Poliomyelitis Immunization 72970 Given 03/03/1998 DTaP Immunization under age 7 39908 Given 01/05/1998 Hib/Hep B Combination Vaccine 58544 Given 01/05/1998 Poliomyelitis Immunization 25308 Given 01/05/1998 DTaP Immunization under age 7 07716 Given 1997 Hepatitis B Imm Age 0 to 19yr Vital Signs Date Vital Result Comment 03/23/2018 11:40am Weight 316.00 lb Weight 143.338 kg Body Temperature 97.7 F Heart Rate 81 /min BP Systolic 137 mmHg BP Diastolic 87 mmHg 02/02/2018 9:03am Height 69.25 inches 5'9.25" Weight 313.12 lb Weight 142.034 kg Body Temperature 98.4 F Heart Rate 81 /min BP Systolic 127 mmHg BP Diastolic 78 mmHg BMI (Body Mass Index) 45.9 kg/m2 12/14/2017 3:58pm Weight 302.00 lb Weight 136.987 kg Body Temperature 99.3 F 12/11/2017 11:45am Weight 304.00 lb Weight 137.894 kg Body Temperature 98.5 F Heart Rate 85 /min BP Systolic 129 mmHg BP Diastolic 75 mmHg 10/03/2017 8:56am Height 69.25 inches 5'9.25" Height Percentile 45 % Weight 291.25 lb Weight 132.111 kg Weight Percentile >97th Heart Rate 64 /min BP Systolic 131 mmHg BP Diastolic 80 mmHg BMI (Body Mass Index) 42.7 kg/m2 Body Mass Index Percentile 99 % 07/28/2017 11:50am Weight 294.00 lb Weight 133.358 kg Weight Percentile >97th Body Temperature 96.3 F Heart Rate 70 /min BP Systolic 142 mmHg BP Diastolic 79 mmHg 07/04/2017 8:55am Height 69.25 inches 5'9.25" Height Percentile 45 % Weight 295.00 lb Weight 133.812 kg Weight Percentile >97th Heart Rate 72 /min BP Systolic 130 mmHg BP Diastolic 78 mmHg BMI (Body Mass Index) 43.2 kg/m2 Body Mass Index Percentile 99 % 05/19/2017 5:00pm Weight 295.25 lb Weight 133.925 kg Weight Percentile >97th Body Temperature 98.3 F Heart Rate 100 /min BP Systolic 136 mmHg BP Diastolic 78 mmHg O2 % BldC Oximetry 98 % 05/02/2017 8:10am Height 69.75 inches 5'9.75" Height Percentile 52 % Weight 306.12 lb Weight 138.858 kg Weight Percentile >97th Heart Rate 69 /min BP Systolic 129 mmHg BP Diastolic 61 mmHg BMI (Body Mass Index) 44.2 kg/m2 Body Mass Index Percentile 99 % 04/21/2017 10:04am Height 69.5 inches 5'9.50" Height Percentile 49 % Weight 303.00 lb Weight 137.441 kg Weight Percentile >97th Heart Rate 84 /min BP Systolic 141 mmHg BP Diastolic 83 mmHg BMI (Body Mass Index) 44.1 kg/m2 Body Mass Index Percentile 99 % Right ear audiology results 20 db Left ear audiology results 20 db Left Visual Acuity Distance 20/20 Right Visual Acuity Distance 20/25-2 04/19/2017 9:09am Weight 309.38 lb Weight 140.333 kg Weight Percentile >97th Body Temperature 98.7 F Heart Rate 89 /min BP Systolic 138 mmHg BP Diastolic 82 mmHg 02/28/2017 11:05am Weight 299.00 lb Weight 135.626 kg Weight Percentile >97th Body Temperature 98.8 F 02/09/2017 8:48am Height 69 inches 5'9" Height Percentile 42 % Weight 299.00 lb Weight 135.626 kg Weight Percentile >97th Heart Rate 69 /min BP Systolic 131 mmHg BP Diastolic 51 mmHg BMI (Body Mass Index) 44.1 kg/m2 Body Mass Index Percentile 99 % 02/01/2017 4:16pm Weight 302.00 lb Weight 136.987 kg Weight Percentile >97th Body Temperature 98.7 F 11/28/2016 11:46am Weight 290.00 lb Weight 131.544 kg 09/26/2016 11:27am Weight 288.12 lb Weight 130.694 kg Weight Percentile >97th Body Temperature 99.1 F Heart Rate 112 /min O2 % BldC Oximetry 98 % 08/30/2016 2:11pm Weight 186.00 lb Weight 84.370 kg Weight Percentile 87th Body Temperature 98.4 F 06/18/2016 9:30am Height 69 inches 5'9" Height Percentile 43 % Weight 287.00 lb w/clothes/no shoes Weight 130.183 kg Weight Percentile >97th Heart Rate 74 /min BP Systolic 144 mmHg BP Diastolic 79 mmHg Blood Pressure Percentile 98 % BMI (Body Mass Index) 42.4 kg/m2 Body Mass Index Percentile 99 % 06/07/2016 8:33am Weight 286.00 lb Weight 129.730 kg Weight Percentile >97th Body Temperature 98.5 F 05/30/2016 9:11am Height 69 inches 5'9" Height Percentile 43 % Weight 284.00 lb Weight 128.822 kg Weight Percentile >97th Heart Rate 71 /min BP Systolic 128 mmHg BP Diastolic 74 mmHg Blood Pressure Percentile 74 % BMI (Body Mass Index) 41.9 kg/m2 Body Mass Index Percentile 99 % 04/20/2016 7:49am Height 69.25 inches 5'9.25" Height Percentile 47 % Weight 281.00 lb Weight 127.462 kg Weight Percentile >97th Heart Rate 84 /min BP Systolic 144 mmHg BP Diastolic 80 mmHg Blood Pressure Percentile 98 % BMI (Body Mass Index) 41.2 kg/m2 Body Mass Index Percentile 99 % Right ear audiology results 20 db Left ear audiology results 20 db Left Visual Acuity Distance 20/25-1 Right Visual Acuity Distance 20/20 04/08/2016 3:46pm Weight 286.31 lb Weight 129.871 kg Weight Percentile >97th Body Temperature 97.1 F 03/24/2016 8:03am Height 69.25 inches 5'9.25" Height Percentile 47 % Weight 282.38 lb Weight 128.085 kg Weight Percentile >97th Heart Rate 94 /min BP Systolic 137 mmHg BP Diastolic 77 mmHg Blood Pressure Percentile 93 % BMI (Body Mass Index) 41.4 kg/m2 Body Mass Index Percentile 99 % 02/23/2016 8:59am Height 69.25 inches 5'9.25" Height Percentile 48 % Weight 277.50 lb Weight 125.874 kg Weight Percentile >97th Heart Rate 108 /min BP Systolic 158 mmHg BP Diastolic 84 mmHg Blood Pressure Percentile 99 % BMI (Body Mass Index) 40.7 kg/m2 Body Mass Index Percentile 99 % 02/08/2016 11:44am Height 68.75 inches 5'8.75" Height Percentile 41 % Weight 280.25 lb Weight 127.121 kg Weight Percentile >97th Heart Rate 101 /min BP Systolic 144 mmHg BP Diastolic 90 mmHg Blood Pressure Percentile 98 % BMI (Body Mass Index) 41.7 kg/m2 Body Mass Index Percentile 99 % 10/21/2015 1:21pm Height 68.75 inches 5'8.75" Height Percentile 42 % Weight 271.00 lb Weight 122.926 kg Weight Percentile >97th Heart Rate 73 /min BP Systolic 138 mmHg BP Diastolic 70 mmHg Blood Pressure Percentile 95 % BMI (Body Mass Index) 40.3 kg/m2 Body Mass Index Percentile 99 % 10/05/2015 3:20pm Weight 267.00 lb Weight 121.111 kg Weight Percentile >97th Body Temperature 98.2 F Heart Rate 90 /min BP Systolic 142 mmHg BP Diastolic 87 mmHg Blood Pressure Percentile 0 % 07/07/2015 1:49pm Weight 266.25 lb Weight 120.771 kg Weight Percentile >97th Body Temperature 98.8 F 04/07/2015 10:39am Height 69 inches 5'9" Height Percentile 48 % Weight 262.00 lb Weight 118.843 kg Weight Percentile >97th Heart Rate 77 /min BP Systolic 124 mmHg BP Diastolic 67 mmHg Blood Pressure Percentile 66 % BMI (Body Mass Index) 38.7 kg/m2 Body Mass Index Percentile 99 % 03/05/2015 12:49pm Weight 262.50 lb Weight 119.070 kg Weight Percentile >97th Body Temperature 97.2 F Heart Rate 86 /min BP Systolic 148 mmHg BP Diastolic 86 mmHg Blood Pressure Percentile 0 % 02/27/2015 12:26pm Weight 258.25 lb Weight 117.142 kg Weight Percentile >97th Body Temperature 97.6 F 01/20/2015 1:30pm Height 68.25 inches 5'8.25" Height Percentile 39 % Weight 261.00 lb Weight 118.390 kg Weight Percentile >97th Heart Rate 88 /min BP Systolic 132 mmHg BP Diastolic 79 mmHg Blood Pressure Percentile 89 % BMI (Body Mass Index) 39.4 kg/m2 Body Mass Index Percentile 99 % 06/30/2014 10:41am Weight 245.00 lb Weight 111.132 kg Weight Percentile >97th Body Temperature 97.3 F Heart Rate 69 /min O2 % BldC Oximetry 99 % 06/26/2014 1:07pm Height 68.25 inches 5'8.25" Height Percentile 43 % Weight 245.00 lb Weight 111.132 kg Weight Percentile >97th Heart Rate 71 /min BP Systolic 130 mmHg BP Diastolic 68 mmHg Blood Pressure Percentile 87 % BMI (Body Mass Index) 37.0 kg/m2 Body Mass Index Percentile 99 % 03/25/2014 8:14am Height 68 inches 5'8" Height Percentile 42 % Weight 261.00 lb Weight 118.390 kg Weight Percentile >97th Heart Rate 88 /min BP Systolic 123 mmHg BP Diastolic 70 mmHg Blood Pressure Percentile 71 % BMI (Body Mass Index) 39.7 kg/m2 Body Mass Index Percentile 99 % 10/29/2013 11:17am Weight 245.00 lb Weight 111.132 kg Weight Percentile >97th Body Temperature 98.0 F 07/30/2013 9:43am Weight 226.00 lb Weight 102.510 kg Weight Percentile >97th Body Temperature 98.5 F Heart Rate 84 /min O2 sats BP Systolic 128 mmHg BP Diastolic 72 mmHg Blood Pressure Percentile 0 % 07/11/2013 11:22am Weight 225.00 lb Weight 102.060 kg Weight Percentile >97th Body Temperature 98.9 F Heart Rate 100 /min O2 % BldC Oximetry 97 % 03/18/2013 2:51pm Height 66.25 inches 5'6.25" Height Percentile 35 % Weight 205.50 lb Weight 93.215 kg Weight Percentile >97th Heart Rate 90 /min BP Systolic 125 mmHg BP Diastolic 68 mmHg Blood Pressure Percentile 85 % BMI (Body Mass Index) 32.9 kg/m2 Body Mass Index Percentile 98 % 02/01/2013 3:22pm Height 66 inches 5'6" Height Percentile 34 % Weight 203.00 lb Weight 92.081 kg Weight Percentile >97th Heart Rate 80 /min BP Systolic 132 mmHg BP Diastolic 72 mmHg Blood Pressure Percentile 95 % BMI (Body Mass Index) 32.8 kg/m2 Body Mass Index Percentile 98 % 01/15/2013 11:25am Weight 201.00 lb Weight 91.174 kg Weight Percentile >97th Body Temperature 97.0 F 10/17/2012 8:20am Height 65.75 inches 5'5.75" Height Percentile 37 % Weight 206.00 lb Weight 93.442 kg Weight Percentile >97th Heart Rate 76 /min BP Systolic 136 mmHg BP Diastolic 84 mmHg Blood Pressure Percentile 0 % BMI (Body Mass Index) 33.5 kg/m2 Body Mass Index Percentile 99 % 08/08/2012 11:22am Weight 197.50 lb Weight 89.586 kg Weight Percentile >97th Body Temperature 97.8 F Heart Rate 64 /min Blood Pressure Percentile 0 % 03/12/2012 10:47am Height 64 inches 5'4" Height Percentile 33 % Weight 182.50 lb Weight 82.782 kg Weight Percentile >97th Heart Rate 76 /min BP Systolic 120 mmHg BP Diastolic 58 mmHg Blood Pressure Percentile 79 % BMI (Body Mass Index) 31.3 kg/m2 Body Mass Index Percentile 98 % 01/19/2012 11:35am Weight 180.00 lb Weight 81.648 kg Weight Percentile >97th Body Temperature 97.7 F Blood Pressure Percentile 0 % 11/17/2011 10:36am Height 64 inches 5'4" Height Percentile 43 % Weight 178.00 lb Weight 80.741 kg Weight Percentile >97th Body Temperature 98.8 F Heart Rate 72 /min Respiratory Rate 20 /min BP Systolic 130 mmHg BP Diastolic 60 mmHg Blood Pressure Percentile 96 % BMI (Body Mass Index) 30.6 kg/m2 Body Mass Index Percentile 98 % 09/13/2011 3:51pm Weight 174.00 lb Weight 78.926 kg Weight Percentile 97th Body Temperature 98.1 F Heart Rate 88 /min BP Systolic 122 mmHg BP Diastolic 68 mmHg Blood Pressure Percentile 0 % 05/25/2011 8:35am Weight 167.00 lb Weight 75.751 kg Weight Percentile 97th BP Systolic 130 mmHg left arm BP Diastolic 72 mmHg left arm Blood Pressure Percentile 0 % BP Systolic Recheck 130 mmHg right arm BP Diastolic Recheck 70 mmHg right arm 04/22/2011 1:53pm Height 62.5 inches 5'2.50" Height Percentile 46 % Weight 168.50 lb Weight 76.432 kg Weight Percentile >97th Heart Rate 80 /min BP Systolic 138 mmHg BP Diastolic 60 mmHg Blood Pressure Percentile 99 % BMI (Body Mass Index) 30.3 kg/m2 Body Mass Index Percentile 98 % 02/23/2011 10:15am Height 61.75 inches 5'1.75" Height Percentile 43 % Weight 166.50 lb Weight 75.524 kg Weight Percentile >97th Heart Rate 88 /min BP Systolic 132 mmHg BP Diastolic 72 mmHg Blood Pressure Percentile 98 % BMI (Body Mass Index) 30.7 kg/m2 Body Mass Index Percentile 98 % 07/08/2010 12:32pm Weight 151.00 lb Weight 68.494 kg Weight Percentile 97th Body Temperature 98.3 F BP Systolic 108 mmHg BP Diastolic 70 mmHg Blood Pressure Percentile 0 % 07/03/2010 10:06am Weight 148.50 lb Weight 67.360 kg Weight Percentile 96th Body Temperature 97.1 F Blood Pressure Percentile 0 % 02/17/2010 2:04pm Height 59.25 inches 4'11.25" Height Percentile 48 % Weight 142.00 lb Weight 64.411 kg Weight Percentile 96th Heart Rate 80 /min BP Systolic 104 mmHg BP Diastolic 66 mmHg Blood Pressure Percentile 39 % BMI (Body Mass Index) 28.4 kg/m2 Body Mass Index Percentile 98 % 2009 10:53am Weight 139.50 lb Weight 63.277 kg Weight Percentile 97th Body Temperature 97.5 F Blood Pressure Percentile 0 % 02/16/2009 3:11pm Height 57 inches 4'9" Height Percentile 49 % Weight 124.00 lb Weight 56.246 kg Weight Percentile >97th Heart Rate 80 /min BP Systolic 132 mmHg BP Diastolic 64 mmHg Blood Pressure Percentile 99 % BMI (Body Mass Index) 26.8 kg/m2 Body Mass Index Percentile 99 % 02/12/2008 2:36pm Height 54.25 inches 4'6.25" Height Percentile 38 % Weight 109.00 lb Weight 49.442 kg Weight Percentile >97th Heart Rate 100 /min BP Systolic 120 mmHg BP Diastolic 60 mmHg BMI (Body Mass Index) 26.0 kg/m2 Body Mass Index Percentile 97 % 05/16/2007 9:16am Weight 95.00 lb Weight 43.092 kg Weight Percentile >95th Body Temperature 96.2 F 02/13/2007 11:45am Weight 93.00 lb Weight 42.185 kg Weight Percentile >95th Body Temperature 97.4 F 12/07/2006 2:34pm Height 51 inches 4'3" Height Percentile 24 % Weight 87.00 lb Weight 39.463 kg Weight Percentile >95th Heart Rate 100 /min BP Systolic 116 mmHg BP Diastolic 60 mmHg BMI (Body Mass Index) 23.5 kg/m2 Body Mass Index Percentile 95 % 04/04/2006 4:33pm Weight 78.00 lb Weight 35.381 kg Weight Percentile >95th Body Temperature 98.8 F 03/29/2006 1:25pm Weight 78.00 lb Weight 35.381 kg Weight Percentile >95th Body Temperature 98.4 F Results Test Date Facility Test Result H/L Range Note Laboratory test 02/02/2018 [facility] Glucose 97 mg/dL N 70- 100 1 finding [address] [place] [address] [phone] Insulin Level 27.2 mcIU/mL High 2.0-16.0 2 Hemoglobin A1c (Glyco HGB) 6.1 % High 4.0-5.6 3 Comp Metabolic Panel 11/23/2017 [facility] Sodium 141 mmol/L N 135-[address] [place] [address] [phone] Potassium 4.1 mmol/L N 3.5-5.0 Chloride 104 mmol/L N 101-111 Co2 Carbon Dioxide 27 mmol/L N 22-32 Anion Gap 10 mmol/L N 2-11 Glucose 85 mg/dL N 70-100 Blood Urea Nitrogen 13 mg/dL N 6-24 Creatinine 0.70 mg/dL N 0.67-1.17 BUN/Creatinine Ratio 18.6 N 8-20 Calcium 9.8 mg/dL N 8.6-10.3 Total Protein 7.4 g/dL N 6.4-8.9 Albumin 4.5 g/dL N 3.2-5.2 Globulin 2.9 g/dL N 2-4 Albumin/Globulin Ratio 1.6 N 1-3 Total Bilirubin 0.40 mg/dL N 0.2-1.0 Alkaline Phosphatase 80 U/L N 34-104 Alt 64 U/L High 7-52 Ast 34 U/L N 13-39 Egfr Non- 143.8 >60 Egfr 174.0 >60 4 CBC No Diff 11/23/2017 [facility] White Blood 10.9 10^3/uL High 3.5-10.[address] [place] [place] [address] [phone] Red Blood Count 5.67 10^6/uL High 4.00-5.40 Hemoglobin 15.7 g/dL N 14.0-18.0 Hematocrit 46 % N 42-52 Mean Corpuscular Volume 82 fL N 80-94 Mean Corpuscular Hemoglobin 28 pg N 27-31 Mean Corpuscular HGB Conc 34 g/dL N 31-36 Red Cell Distribution Width 14 % N 10.5-15 Platelet Count 293 10^3/uL N 150-450 Mean Platelet Volume 8.0 um3 N 7.4-10.4 Laboratory test 11/23/2017 [facility] Erythrocyte Sed 7 mm/Hr N 0-[address] [place] [place] [address] [phone] Urinalysis Profile 11/23/2017 [facility] Urine Color Yellow [address] [place] [address] [phone] Urine Appearance Cloudy Urine Specific [place] 1.019 N 1.010-1.030 Urine pH 7.0 N 5-9 Urine Urobilinogen Negative Negative Urine Ketones Negative Negative Urine Protein Negative Negative Urine Leukocytes Negative Negative Urine Blood Negative Negative Urine Nitrite Negative Negative Urine Bilirubin Negative Negative Urine Glucose Negative Negative Laboratory test 09/28/2017 [facility] Lab Hemoglobin A1c 5.7 % High 4.0-5.6 5 finding 10 [facility] (Glyco HGB) [place] [address] [phone] Lipid Profile 09/28/2017 [facility] Lab Triglycerides 72 6 (Trig/Chol/HDL) 10 [facility] mg/[place] [address] [phone] Cholesterol 136 mg/dL 7 HDL Cholesterol 30.6 mg/dL 8 LDL Cholesterol 91 mg/dL 9 Laboratory test 09/28/2017 [facility] Lab Glucose 87 mg/dL N 70- 100 10 finding 10 [place] [address] [phone] Insulin Level 21.3 mcIU/mL High 2.0-16.0 11 Urinalysis Profile 09/24/2017 [facility] Urine Color Yellow [address] [place] [address] [phone] Urine Appearance Clear Urine Specific [place] 1.017 N 1.010-1.030 Urine pH 7.0 N 5-9 Urine Urobilinogen Positive Abnormal Negative Urine Ketones Negative Negative Urine Protein Negative Negative Urine Leukocytes Negative Negative Urine Blood Negative Negative Urine Nitrite Negative Negative Urine Bilirubin Negative Negative Urine Glucose Negative Negative Type & Screen 09/24/2017 [facility] Patient Blood Type A Positive [address] [place] [phone] Antibody Screen NEGATIVE Comp Metabolic Panel 09/24/2017 [facility] Sodium 140 mmol/L N 139-[address] [place] [phone] Potassium 4.0 mmol/L N 3.5-5.0 Chloride 106 mmol/L N 101-111 Co2 Carbon Dioxide 26 mmol/L N 22-32 Anion Gap 8 mmol/L N 2-11 Glucose 114 mg/dL High 70-100 Blood Urea Nitrogen 10 mg/dL N 6-24 Creatinine 0.71 mg/dL N 0.67-1.17 BUN/Creatinine Ratio 14.1 N 8-20 Calcium 9.3 mg/dL N 8.6-10.3 Total Protein 6.7 g/dL N 6.4-8.9 Albumin 4.3 g/dL N 3.2-5.2 Globulin 2.4 g/dL N 2-4 Albumin/Globulin Ratio 1.8 N 1-3 Total Bilirubin 0.30 mg/dL N 0.2-1.0 Alkaline Phosphatase 86 U/L N 34-104 Alt 41 U/L N 7-52 Ast 22 U/L N 13-39 Egfr Non- 142.9 >60 Egfr 183.8 >60 12 Laboratory test 09/24/2017 [facility] Lactic Acid 1.5 mmol/L N 0.5-2.0 [address] [place] [address] [phone] CBC Auto Diff 09/24/2017 [facility] White Blood 11.4 High 3.5- 10.[address] Count 10^3/[place] [address] [phone] Red Blood Count 5.32 10^6/uL N 4.0-5.4 Hemoglobin 14.8 g/dL N 14.0-18.0 Hematocrit 45 % N 42-52 Mean Corpuscular Volume 84 fL N 80-94 Mean Corpuscular Hemoglobin 28 pg N 27-31 Mean Corpuscular HGB Conc 33 g/dL N 31-36 Red Cell Distribution Width 14 % N 10.5-15 Platelet Count 242 10^3/uL N 150-450 Mean Platelet Volume 8.5 um3 N 7.4-10.4 Abs Neutrophils 6.3 10^3/uL N 1.5-7.7 Abs Lymphocytes 3.8 10^3/uL N 1.0-4.8 Abs Monocytes 1.0 10^3/uL High 0-0.8 Abs Eosinophils 0.2 10^3/uL N 0-0.6 Abs Basophils 0.1 10^3/uL N 0-0.2 Abs Nucleated RBC 0 10^3/uL Granulocyte % 55.0 % N 38-83 Lymphocyte % 33.7 % N 25-47 Monocyte % 9.1 % High 0-7 Eosinophil % 1.6 % N 0-6 Basophil % 0.6 % N 0-2 Nucleated Red Blood Cells % 0 CBC Auto Diff 07/25/2017 [facility] White Blood 9.8 10^3/uL N 3.5-10.[address] [place] [place] [address] [phone] Red Blood Count 5.27 10^6/uL N 4.0-5.4 Hemoglobin 14.7 g/dL N 14.0-18.0 Hematocrit 43 % N 42-52 Mean Corpuscular Volume 82 fL N 80-94 Mean Corpuscular Hemoglobin 28 pg N 27-31 Mean Corpuscular HGB Conc 34 g/dL N 31-36 Red Cell Distribution Width 14 % N 10.5-15 Platelet Count 249 10^3/uL N 150-450 Mean Platelet Volume 8.6 um3 N 7.4-10.4 Abs Neutrophils 5.8 10^3/uL N 1.5-7.7 Abs Lymphocytes 3.1 10^3/uL N 1.0-4.8 Abs Monocytes 0.6 10^3/uL N 0-0.8 Abs Eosinophils 0.2 10^3/uL N 0-0.6 Abs Basophils 0.1 10^3/uL N 0-0.2 Abs Nucleated RBC 0 10^3/uL Granulocyte % 59.1 % N 38-83 Lymphocyte % 31.9 % N 25-47 Monocyte % 5.8 % N 0-7 Eosinophil % 2.2 % N 0-6 Basophil % 1.0 % N 0-2 Nucleated Red Blood Cells % 0 Comp Metabolic Panel 07/25/2017 [facility] Sodium 140 mmol/L N 139-[address] [place] [address] [phone] Chloride 105 mmol/L N 101-111 Co2 Carbon Dioxide 26 mmol/L N 22-32 Glucose 144 mg/dL High 70-100 Blood Urea Nitrogen 12 mg/dL N 6-24 Creatinine 0.72 mg/dL N 0.67-1.17 BUN/Creatinine Ratio 16.7 N 8-20 Calcium 9.2 mg/dL N 8.6-10.3 Total Protein 7.0 g/dL N 6.4-8.9 Albumin 4.4 g/dL N 3.2-5.2 Globulin 2.6 g/dL N 2-4 Albumin/Globulin Ratio 1.7 N 1-3 Total Bilirubin 0.30 mg/dL N 0.2-1.0 Alkaline Phosphatase 82 U/L N 34-104 Alt 34 U/L N 7-52 Egfr Non- 140.6 >60 Egfr 180.9 >60 14 Potassium 3.8 mmol/L N 3.5-5.0 Anion Gap 9 mmol/L N 2-11 Ast 24 U/L N 13-39 Laboratory test finding 07/25/2017 [facility] Lipase 28 U/L N 11.0-82.0 [address] [place] [address] [phone] CRP High Sensitivity 2.09 mg/L 15 Laboratory test 06/29/2017 [facility] Lab Hemoglobin A1c 5.7 % High 4.0-5.6 16 finding 10 [facility] (Glyco HGB) [place] [address] [phone] Insulin Level 39.9 mcIU/mL Abnormal 2.6 - 24.9 17 Vitamin D Total 25(Oh) 29.3 ng/mL N 20-50 18 Glucose 103 mg/dL High 70-100 19 Laboratory test 04/26/2017 [facility] TSH (Thyroid 2.21 mcIU/mL N 0.34-5.60 finding 101 [facility] Stim Horm) [place] [address] [phone] Vitamin D Total 25(Oh) 19.2 ng/mL Low 20-50 Lipid Profile 04/26/2017 [facility] Triglycerides 106 mg/dL 20 (Trig/Chol/HDL) [address] [place] [address] [phone] Cholesterol 137 mg/dL 21 HDL Cholesterol 32.8 mg/dL 22 LDL Cholesterol 83 mg/dL 23 Laboratory test 04/26/2017 [facility] Hemoglobin A1c 6.3 % High 4.0-5.6 24 finding 101 [facility] (Glyco HGB) [place] [address] [phone] Insulin Level 41.2 mcIU/mL Abnormal 2.6 - 24.9 25 Comp Metabolic Panel 04/26/2017 [facility] Chloride 102 mmol/L N 101-111 [address] [place] [address] [phone] Co2 Carbon Dioxide 27 mmol/L N 22-32 Glucose 105 mg/dL High 70-100 Blood Urea Nitrogen 13 mg/dL N 6-24 Creatinine 0.65 mg/dL Low 0.67-1.17 BUN/Creatinine Ratio 20.0 N 8-20 Calcium 9.7 mg/dL N 8.6-10.3 Total Protein 6.7 g/dL N 6.4-8.9 Albumin 4.2 g/dL N 3.2-5.2 Globulin 2.5 g/dL N 2-4 Albumin/Globulin Ratio 1.7 N 1-3 Total Bilirubin 0.60 mg/dL N 0.2-1.0 Alkaline Phosphatase 100 U/L N 34-104 Alt 51 U/L N 7-52 Ast 31 U/L N 13-39 Egfr Non- 158.3 >60 Egfr 203.5 >60 26 Sodium 136 mmol/L N 133-145 Potassium 4.4 mmol/L N 3.5-5.0 Anion Gap 7 mmol/L N 2-11 CBC Auto Diff 04/26/2017 [facility] White Blood 10.0 10^3/uL N 3.5-10.[address] [place] [address] [phone] Red Blood Count 5.67 10^6/uL High 4.0-5.4 Hemoglobin 15.5 g/dL N 14.0-18.0 Hematocrit 47 % N 42-52 Mean Corpuscular Volume 82 fL N 80-94 Mean Corpuscular Hemoglobin 27 pg N 27-31 Mean Corpuscular HGB Conc 33 g/dL N 31-36 Red Cell Distribution Width 14 % N 10.5-15 Platelet Count 264 10^3/uL N 150-450 Mean Platelet Volume 9 um3 N 7.4-10.4 Abs Neutrophils 6.0 10^3/uL N 1.5-7.7 Abs Lymphocytes 2.9 10^3/uL N 1.0-4.8 Abs Monocytes 0.8 10^3/uL N 0-0.8 Abs Eosinophils 0.2 10^3/uL N 0-0.6 Abs Basophils 0 10^3/uL N 0-0.2 Abs Nucleated RBC 0 10^3/uL Granulocyte % 60.4 % N 38-83 Lymphocyte % 29.2 % N 25-47 Monocyte % 7.6 % N 1-9 Eosinophil % 2.4 % N 0-6 Basophil % 0.4 % N 0-2 Nucleated Red Blood Cells % 0 Laboratory test 03/04/2017 [facility] D Dimer < 200 N Less [address] Quantitative ng/mL Than [address] [place] [address] [phone] CBC Auto Diff 03/04/2017 [facility] White Blood Count 7.7 N 3.5-10.[address] 10^3/[place] [address] [phone] Red Blood Count 5.51 10^6/uL High 4.0-5.4 Hemoglobin 15.2 g/dL N 14.0-18.0 Hematocrit 45 % N 42-52 Mean Corpuscular Volume 81 fL N 80-94 Mean Corpuscular Hemoglobin 28 pg N 27-31 Mean Corpuscular HGB Conc 34 g/dL N 31-36 Red Cell Distribution Width 14 % N 10.5-15 Platelet Count 252 10^3/uL N 150-450 Mean Platelet Volume 9 um3 N 7.4-10.4 Abs Neutrophils 4.5 10^3/uL N 1.5-7.7 Abs Lymphocytes 2.2 10^3/uL N 1.0-4.8 Abs Monocytes 0.8 10^3/uL N 0-0.8 Abs Eosinophils 0.2 10^3/uL N 0-0.6 Abs Basophils 0 10^3/uL N 0-0.2 Abs Nucleated RBC 0 10^3/uL Granulocyte % 58.6 % N 38-83 Lymphocyte % 28.2 % N 25-47 Monocyte % 10.7 % High 1-9 Eosinophil % 2.0 % N 0-6 Basophil % 0.5 % N 0-2 Nucleated Red Blood Cells % 0.1 Laboratory test 03/04/2017 [facility] Partial Thrombo 29.7 N 26.0-36.[address] [place] [address] [phone] Inr/Protime 03/04/2017 [facility] Inr 1.03 N 0.89-1.[address] [place] [address] [phone] Laboratory test 03/04/2017 [facility] B-Type 17 pg/mL [address] [place] [address] Peptide BNP [phone] CKMB 03/04/2017 [facility] CKMB ng/mL 4.9 ng/mL N 0.6-6.3 [address] [place] [address] [phone] Laboratory test 03/04/2017 [facility] Magnesium 2.0 mg/dL N 1.9-2.7 finding [address] [place] [address] [phone] Creatine Kinase(CK) 201 U/L N 10-223 Troponin-I (TnI) 0.03 ng/mL <0.04 Myoglobin 44.0 ng/mL N 17.4-105.7 Comp Metabolic Panel 03/04/2017 [facility] Sodium 134 mmol/L N 133-145 [place] [address] [phone] Potassium 3.7 mmol/L N 3.5-5.0 Chloride 103 mmol/L N 101-111 Co2 Carbon Dioxide 24 mmol/L N 22-32 Anion Gap 7 mmol/L N 2-11 Glucose 129 mg/dL High 70-100 Blood Urea Nitrogen 13 mg/dL N 6-24 Creatinine 0.62 mg/dL Low 0.67-1.17 BUN/Creatinine Ratio 21.0 High 8-20 Calcium 9.7 mg/dL N 8.6-10.3 Total Protein 7.2 g/dL N 6.4-8.9 Albumin 4.4 g/dL N 3.2-5.2 Globulin 2.8 g/dL N 2-4 Albumin/Globulin Ratio 1.6 N 1-3 Total Bilirubin 0.40 mg/dL N 0.2-1.0 Alkaline Phosphatase 91 U/L N 34-104 Alt 39 U/L N 7-52 Ast 26 U/L N 13-39 Egfr Non- 167.1 >60 Egfr 214.9 >60 29 Laboratory 03/04/2017 [facility] Lactic Acid 1.5 mmol/L N 0.5- 2.0 30 [place] [address] [phone] Laboratory 03/04/2017 [facility] Troponin-I 0.04 ng/mL High < 0.04 31 test finding (TnI) [place], [place] [id number] [phone] Xray 02/09/2017 [facility] Right negative [address] clavicle [place], [place] [address] [phone] Laboratory 09/26/2016 [facility] TSH (Thyroid 3.14 mcIU/mL N 0.34-5.60 test finding [address] Stim Horm) [place], [place] [address] [phone] CBC Auto Diff 09/26/2016 [facility] White Blood 10.5 10^3/uL N 3.5-10.[address] Count [place], [place] [address] [phone] Red Blood Count 5.50 10^6/uL High 4.0-5.4 Hemoglobin 14.7 g/dL N 14.0-18.0 Hematocrit 44 % N 42-52 Mean Corpuscular Volume 80 fL N 80-94 Mean Corpuscular Hemoglobin 27 pg N 27-31 Mean Corpuscular HGB Conc 33 g/dL N 31-36 Red Cell Distribution Width 13 % N 10.5-15 Platelet Count 275 10^3/uL N 150-450 Mean Platelet Volume 9 um3 N 7.4-10.4 Abs Neutrophils 5.8 10^3/uL N 1.5-7.7 Abs Lymphocytes 3.5 10^3/uL N 1.0-4.8 Abs Monocytes 1.1 10^3/uL High 0-0.8 Abs Eosinophils 0.1 10^3/uL N 0-0.6 Abs Basophils 0.1 10^3/uL N 0-0.2 Abs Nucleated RBC 0.02 10^3/uL N Granulocyte % 54.9 % N 38-83 Lymphocyte % 32.8 % N 25-47 Monocyte % 10.4 % High 1-9 Eosinophil % 1.3 % N 0-6 Basophil % 0.6 % N 0-2 Nucleated Red Blood Cells % 0.2 N Inr/Protime 09/26/2016 [facility] Inr 0.98 N 0.89-1.[address] [place] [address] [phone] Laboratory test 09/26/2016 [facility] Partial 32.9 seconds N 26.0-36.[address] [place] [address] PTT [phone] D Dimer Quantitative < 200 ng/mL N Less Than 230 32 B-Type Natriuretic Peptide BNP 28 pg/mL N 33 Lactic Acid 1.4 mmol/L N 0.5-2.0 34 Urinalysis Profile 09/26/2016 [facility] Urine Color Yellow N [address] [place] [address] [phone] Urine Appearance Cloudy N Urine Specific [place] 1.025 N 1.010-1.030 Urine pH 8.0 N 5-9 Urine Urobilinogen Negative N Negative Urine Ketones Negative N Negative Urine Protein 1+(30 mg/dL) Abnormal Negative Urine Leukocytes Negative N Negative Urine Blood Negative N Negative Urine Nitrite Negative N Negative Urine Bilirubin 1+ N Negative Urine Glucose Negative N Negative Urine White Blood Cell Absent N Absent Urine Red Blood Cell Absent N Absent Urine Bacteria Absent N Absent Comp Metabolic Panel 09/26/2016 [facility] Sodium 138 mmol/L N 133-145 [address] [place] [address] [phone] Potassium 3.6 mmol/L N 3.5-5.0 Chloride 104 mmol/L N 101-111 Co2 Carbon Dioxide 25 mmol/L N 22-32 Anion Gap 9 mmol/L N 2-11 Glucose 97 mg/dL N 70-100 Blood Urea Nitrogen 11 mg/dL N 6-24 Creatinine 0.61 mg/dL Low 0.67-1.17 BUN/Creatinine Ratio 18.0 N 8-20 Calcium 9.1 mg/dL N 8.6-10.3 Total Protein 6.9 g/dL N 6.4-8.9 Albumin 4.2 g/dL N 3.2-5.2 Globulin 2.7 g/dL N 2-4 Albumin/Globulin Ratio 1.6 N 1-3 Total Bilirubin 0.30 mg/dL N 0.2-1.0 Alkaline Phosphatase 109 U/L High 34-104 Alt 44 U/L N 7-52 Ast 26 U/L N 13-39 Egfr Non- 172.2 N >60 Egfr 221.4 N >60 35 CKMB 09/26/2016 [facility] CKMB ng/mL 4.4 ng/mL N 0.6-6.3 [address] [place] [address] [phone] Laboratory test 09/26/2016 [facility] Magnesium 2.0 mg/dL N 1.9-2.[address] [place] [address] [phone] Lipase 22 U/L N 11.0-82.0 Creatine Kinase(CK) 250 U/L High 10-223 C Reactive Protein 2.27 mg/L N < 5.00 36 Troponin-I (TnI) 0.01 ng/mL N <0.04 37 CBC Auto Diff 06/23/2016 [facility] White Blood 10.4 10^3/uL N 3.5-10.[address] [place] [place] [address] [phone] Red Blood Count 5.82 10^6/uL High 4.0-5.4 Hemoglobin 15.7 g/dL N 14.0-18.0 Hematocrit 47 % N 42-52 Mean Corpuscular Volume 81 fL N 80-94 Mean Corpuscular Hemoglobin 27 pg N 27-31 Mean Corpuscular HGB Conc 33 g/dL N 31-36 Red Cell Distribution Width 14 % N 10.5-15 Platelet Count 257 10^3/uL N 150-450 Mean Platelet Volume 9 um3 N 7.4-10.4 Abs Neutrophils 6.4 10^3/uL N 1.5-7.7 Abs Lymphocytes 2.8 10^3/uL N 1.0-4.8 Abs Monocytes 0.9 10^3/uL High 0-0.8 Abs Eosinophils 0.2 10^3/uL N 0-0.6 Abs Basophils 0.1 10^3/uL N 0-0.2 Abs Nucleated RBC 0.01 10^3/uL N Granulocyte % 62.0 % N 38-83 Lymphocyte % 26.7 % N 25-47 Monocyte % 8.5 % N 1-9 Eosinophil % 1.7 % N 0-6 Basophil % 1.1 % N 0-2 Nucleated Red Blood Cells % 0.1 N Inr/Protime 06/23/2016 [facility] Inr 1.04 N 0.89-1.[address] [place] [address] [phone] Laboratory test 06/23/2016 [facility] Partial 30.7 seconds N 26.0-36.[address] [place] [address] PTT [phone] Lactic Acid 1.6 mmol/L N 0.5-2.0 38 Comp Metabolic Panel 06/23/2016 [facility] Sodium 137 mmol/L N 133-145 [address] [place] [address] [phone] Chloride 102 mmol/L N 101-111 Co2 Carbon Dioxide 27 mmol/L N 22-32 Glucose 99 mg/dL N 70-100 Blood Urea Nitrogen 11 mg/dL N 6-24 Creatinine 0.65 mg/dL Low 0.67-1.17 BUN/Creatinine Ratio 16.9 N 8-20 Calcium 9.6 mg/dL N 8.6-10.3 Total Protein 7.4 g/dL N 6.4-8.9 Albumin 4.4 g/dL N 3.2-5.2 Globulin 3.0 g/dL N 2-4 Albumin/Globulin Ratio 1.5 N 1-3 Total Bilirubin 0.40 mg/dL N 0.2-1.0 Alkaline Phosphatase 103 U/L N 34-104 Alt 52 U/L N 7-52 Egfr Non- 160.0 N >60 Egfr 205.8 N >60 39 Potassium 3.9 mmol/L N 3.5-5.0 Anion Gap 8 mmol/L N 2-11 Ast 36 U/L N 13-39 Lipid Profile 06/23/2016 [facility] Triglycerides 114 mg/dL N 40 (Trig/Chol/HDL) [address] [place] [address] [phone] Cholesterol 141 mg/dL N 41 HDL Cholesterol 33.0 mg/dL N 42 LDL Cholesterol 85 mg/dL N 43 Laboratory test 06/23/2016 [facility] Troponin-I (TnI) 0.01 ng/ mL N <0.04 44 finding [address] [place] [address] [phone] Laboratory test 06/07/2016 In House Lab .Strep A, Rapid Neg finding (176)- - .Flu Test in house Neg Laboratory test 04/29/2016 [facility] Potassium 3.9 mmol/L N 3.5-5.[address] [place] [address] [phone] Ast Redraw 31 U/L N 13-39 CBC Auto Diff 03/21/2016 [facility] White Blood 10.0 10^3/uL N 3.5-10.[address] [place] [place] [address] [phone] Red Blood Count 5.64 10^6/uL High 4.0-5.4 Hemoglobin 15.5 g/dL N 14.0-18.0 Hematocrit 46 % N 42-52 Mean Corpuscular Volume 81 fL N 80-94 Mean Corpuscular Hemoglobin 28 pg N 27-31 Mean Corpuscular HGB Conc 34 g/dL N 31-36 Red Cell Distribution Width 13 % N 10.5-15 Platelet Count 286 10^3/uL N 150-450 Mean Platelet Volume 8 um3 N 7.4-10.4 Abs Neutrophils 6.2 10^3/uL N 1.5-7.7 Abs Lymphocytes 2.8 10^3/uL N 1.0-4.8 Abs Monocytes 0.8 10^3/uL N 0-0.8 Abs Eosinophils 0.1 10^3/uL N 0-0.6 Abs Basophils 0.1 10^3/uL N 0-0.2 Abs Nucleated RBC 0.01 10^3/uL N Granulocyte % 62.1 % N 38-83 Lymphocyte % 28.1 % N 25-47 Monocyte % 7.6 % N 1-9 Eosinophil % 1.5 % N 0-6 Basophil % 0.7 % N 0-2 Nucleated Red Blood Cells % 0.1 N Urinalysis Profile 03/21/2016 [facility] Urine Color Straw N [address] [place] [address] [phone] Urine Appearance Clear N Urine Specific [place] 1.009 Low 1.010-1.030 Urine pH 7.0 N 5-9 Urine Urobilinogen Negative N Negative Urine Ketones Negative N Negative Urine Protein Negative N Negative Urine Leukocytes Negative N Negative Urine Blood Negative N Negative Urine Nitrite Negative N Negative Urine Bilirubin Negative N Negative Urine Glucose Negative N Negative Urine Drug 03/21/2016 [facility] Amphetamine Ur None Detected N None Detect SCR ED & [address] Screen [place] [address] [phone] Barbiturates Urine Screen None Detected N None Detect Benzodiazepine Urine Screen None Detected N None Detect Urine Cannabinoids Screen None Detected N None Detect Urine Cocaine Screen None Detected N None Detect Urine Opiates Screen None Detected N None Detect Urine Phencyclidine Screen None Detected N None Detect 45 Comp Metabolic Panel 03/21/2016 [facility] Sodium 138 mmol/L N 133-[address] [place] [address] [phone] Potassium 3.6 mmol/L N 3.5-5.0 Chloride 104 mmol/L N 101-111 Co2 Carbon Dioxide 24 mmol/L N 22-32 Anion Gap 10 mmol/L N 2-11 Glucose 87 mg/dL N 70-100 Blood Urea Nitrogen 13 mg/dL N 6-24 Creatinine 0.63 mg/dL Low 0.67-1.17 BUN/Creatinine Ratio 20.6 High 8-20 Calcium 9.2 mg/dL N 8.6-10.3 Total Protein 7.2 g/dL N 6.4-8.9 Albumin 4.4 g/dL N 3.2-5.2 Globulin 2.8 g/dL N 2-4 Albumin/Globulin Ratio 1.6 N 1-3 Total Bilirubin 0.40 mg/dL N 0.2-1.0 Alkaline Phosphatase 89 U/L N 34-104 Alt 45 U/L N 7-52 Ast 28 U/L N 13-39 Egfr Non- 165.9 N >60 Egfr 213.3 N >60 46 Laboratory test 03/21/2016 [facility] TSH (Thyroid 1.96 mcIU/mL N 0.34-5.[address] Stim Horm) [place] [address] [phone] Acetaminophen < 15 g/mL N 47 Alcohol < 10 mg/dL N <10 Salicylate < 2.50 mg/dL N <30 CBC Auto Diff 02/13/2016 [facility] White Blood 10.6 10^3/uL N 3.5-10.[address] [place] [place] [address] [phone] Red Blood Count 5.51 10^6/uL High 4.0-5.4 Hemoglobin 15.0 g/dL N 14.0-18.0 Hematocrit 45 % N 42-52 Mean Corpuscular Volume 82 fL N 80-94 Mean Corpuscular Hemoglobin 27 pg N 27-31 Mean Corpuscular HGB Conc 33 g/dL N 31-36 Red Cell Distribution Width 14 % N 10.5-15 Platelet Count 298 10^3/uL N 150-450 Mean Platelet Volume 9 um3 N 7.4-10.4 Abs Neutrophils 6.7 10^3/uL N 1.5-7.7 Abs Lymphocytes 2.9 10^3/uL N 1.0-4.8 Abs Monocytes 0.8 10^3/uL N 0-0.8 Abs Eosinophils 0.1 10^3/uL N 0-0.6 Abs Basophils 0.1 10^3/uL N 0-0.2 Abs Nucleated RBC 0 10^3/uL N Granulocyte % 63.5 % N 38-83 Lymphocyte % 27.2 % N 25-47 Monocyte % 7.1 % N 1-9 Eosinophil % 1.3 % N 0-6 Basophil % 0.9 % N 0-2 Nucleated Red Blood Cells % 0 N Comp Metabolic Panel 02/13/2016 [facility] Sodium 135 mmol/L N 133-145 [address] [place] [address] [phone] Potassium 3.7 mmol/L N 3.5-5.0 Chloride 101 mmol/L N 101-111 Co2 Carbon Dioxide 25 mmol/L N 22-32 Anion Gap 9 mmol/L N 2-11 Glucose 84 mg/dL N 70-100 Blood Urea Nitrogen 13 mg/dL N 6-24 Creatinine 0.64 mg/dL Low 0.67-1.17 BUN/Creatinine Ratio 20.3 High 8-20 Calcium 9.9 mg/dL N 8.6-10.3 Total Protein 7.1 g/dL N 6.4-8.9 Albumin 4.4 g/dL N 3.2-5.2 Globulin 2.7 g/dL N 2-4 Albumin/Globulin Ratio 1.6 N 1-3 Total Bilirubin 0.30 mg/dL N 0.2-1.0 Alkaline Phosphatase 81 U/L N 34-104 Alt 62 U/L High 7-52 Ast 37 U/L N 13-39 Egfr Non- 162.9 N >60 Egfr 209.5 N >60 48 Laboratory test 02/13/2016 [facility] Troponin-I (TnI) 0.01 ng/ mL N <0.03 [address] [place] [address] [phone] Magnesium 1.9 mg/dL N 1.9-2.7 CBC Auto Diff 12/21/2015 [facility] White Blood 10.2 10^3/uL N 3.5-10.[address] [place] [address] [phone] Red Blood Count 5.38 10^6/uL N 4.0-5.4 Hemoglobin 14.6 g/dL N 14.0-18.0 Hematocrit 44 % N 42-52 Mean Corpuscular Volume 82 fL N 80-94 Mean Corpuscular Hemoglobin 27 pg N 27-31 Mean Corpuscular HGB Conc 33 g/dL N 31-36 Red Cell Distribution Width 14 % N 10.5-15 Platelet Count 267 10^3/uL N 150-450 Mean Platelet Volume 10 um3 N 7.4-10.4 Abs Neutrophils 6.1 10^3/uL N 1.5-7.7 Abs Lymphocytes 3.0 10^3/uL N 1.0-4.8 Abs Monocytes 0.9 10^3/uL High 0-0.8 Abs Eosinophils 0.2 10^3/uL N 0-0.6 Abs Basophils 0.1 10^3/uL N 0-0.2 Abs Nucleated RBC 0.02 10^3/uL N Granulocyte % 60.0 % N 38-83 Lymphocyte % 29.1 % N 25-47 Monocyte % 8.7 % N 1-9 Eosinophil % 1.5 % N 0-6 Basophil % 0.7 % N 0-2 Nucleated Red Blood Cells % 0.2 N Laboratory test 12/21/2015 [facility] Troponin-I 0.01 ng/mL N <0.[address] (TnI) [place] [address] [phone] Comp Metabolic 12/21/2015 [facility] Sodium 137 mmol/L N 133- [address] [place] [address] [phone] Potassium 3.7 mmol/L N 3.5-5.0 Chloride 104 mmol/L N 101-111 Co2 Carbon Dioxide 26 mmol/L N 22-32 Anion Gap 7 mmol/L N 2-11 Glucose 93 mg/dL N 70-100 Blood Urea Nitrogen 12 mg/dL N 6-24 Creatinine 0.64 mg/dL Low 0.67-1.17 BUN/Creatinine Ratio 18.8 N 8-20 Calcium 9.8 mg/dL N 8.6-10.3 Total Protein 7.0 g/dL N 6.4-8.9 Albumin 4.1 g/dL N 3.2-5.2 Globulin 2.9 g/dL N 2-4 Albumin/Globulin Ratio 1.4 N 1-3 Total Bilirubin 0.30 mg/dL N 0.2-1.0 Alkaline Phosphatase 86 U/L N 34-104 Alt 34 U/L N 7-52 Ast 24 U/L N 13-39 Egfr Non- 162.9 N >60 Egfr 209.5 N >60 51 Laboratory test 12/21/2015 [facility] Creatine 173 U/L N 10- 223 finding 101 [facility] Kinase(CK) [place] [address] [phone] CKMB 12/21/2015 [facility] CKMB ng/mL 4.3 ng/mL N 0.6-6.3 [address] [place] [address] [phone] Laboratory test 12/21/2015 [facility] Lactic Acid 0.7 mmol/L N 0.5-2.0 52 finding [address] [place] [address] [phone] Urinalysis 03/07/2015 [facility] Urine Color Yellow N Profile [address] [place] [address] [phone] Urine Appearance Cloudy N Urine Specific [place] 1.020 N 1.010-1.030 Urine pH 7.0 N 5-9 Urine Urobilinogen Positive Abnormal Negative Urine Ketones Negative N Negative Urine Protein Negative N Negative Urine Leukocytes Negative N Negative Urine Blood Negative N Negative Urine Nitrite Negative N Negative Urine Bilirubin Negative N Negative Urine Glucose Negative N Negative Comp Metabolic Panel 03/07/2015 [facility] Sodium 136 mmol/L N 133-145 [address] [place] [address] [phone] Chloride 103 mmol/L N 101-111 Co2 Carbon Dioxide 26 mmol/L N 22-32 Glucose 96 mg/dL N 70-100 Blood Urea Nitrogen 11 mg/dL N 6-24 Creatinine 0.63 mg/dL Low 0.67-1.17 BUN/Creatinine Ratio 17.5 N 8-20 Calcium 9.6 mg/dL N 8.6-10.3 Total Protein 7.1 g/dL N 6.4-8.9 Albumin 4.5 g/dL N 3.2-5.2 Globulin 2.6 g/dL N 2-4 Albumin/Globulin Ratio 1.7 N 1-3 Total Bilirubin 0.30 mg/dL N 0.2-1.0 Alkaline Phosphatase 122 U/L High 34-104 Alt 37 U/L N 7-52 Potassium TNP mmol/L N 3.5-5.0 53 Anion Gap TNP mmol/L N 2-11 Ast TNP U/L N 13-39 54 Laboratory test 03/07/2015 [facility] C Reactive 1.85 mg/L N < 5.00 [address] [place] [address] [phone] CBC Auto Diff 03/07/2015 [facility] White Blood 9.1 N 4.8- 10.[address] Count 10^3/[place] [address] [phone] Red Blood Count 5.66 10^6/uL High 4.0-5.4 Hemoglobin 15.5 g/dL N 14.0-18.0 Hematocrit 47 % N 42-52 Mean Corpuscular Volume 83 fL N 80-94 Mean Corpuscular Hemoglobin 28 pg N 27-31 Mean Corpuscular HGB Conc 33 g/dL N 31-36 Red Cell Distribution Width 14 % N 10.5-15 Platelet Count 286 10^3/uL N 150-450 Mean Platelet Volume 9 um3 N 7.4-10.4 Abs Neutrophils 5.3 10^3/uL N 1.5-7.7 Abs Lymphocytes 2.6 10^3/uL N 1.0-4.8 Abs Monocytes 0.8 10^3/uL N 0-0.8 Abs Eosinophils 0.3 10^3/uL N 0-0.6 Abs Basophils 0.1 10^3/uL N 0-0.2 Abs Nucleated RBC 0.01 10^3/uL N Granulocyte % 58.8 % N 38-83 Lymphocyte % 28.6 % N 25-47 Monocyte % 9.1 % High 1-9 Eosinophil % 2.9 % N 0-6 Basophil % 0.6 % N 0-2 Nucleated Red Blood Cells % 0.1 N Laboratory test 03/07/2015 [facility] Erythrocyte Sed 11 mm/Hr N 0-[address] [place] [address] [phone] CBC Auto Diff 03/04/2015 [facility] White Blood 11.7 High 4.8- 10.[address] Count 10^3/[place] [address] [phone] Red Blood Count 5.36 10^6/uL N 4.0-5.4 Hemoglobin 14.8 g/dL N 14.0-18.0 Hematocrit 45 % N 42-52 Mean Corpuscular Volume 83 fL N 80-94 Mean Corpuscular Hemoglobin 28 pg N 27-31 Mean Corpuscular HGB Conc 33 g/dL N 31-36 Red Cell Distribution Width 14 % N 10.5-15 Platelet Count 265 10^3/uL N 150-450 Mean Platelet Volume 9 um3 N 7.4-10.4 Abs Neutrophils 7.5 10^3/uL N 1.5-7.7 Abs Lymphocytes 3.2 10^3/uL N 1.0-4.8 Abs Monocytes 0.8 10^3/uL N 0-0.8 Abs Eosinophils 0.2 10^3/uL N 0-0.6 Abs Basophils 0.1 10^3/uL N 0-0.2 Abs Nucleated RBC 0.01 10^3/uL N Granulocyte % 64.0 % N 38-83 Lymphocyte % 27.0 % N 25-47 Monocyte % 6.8 % N 1-9 Eosinophil % 1.6 % N 0-6 Basophil % 0.6 % N 0-2 Nucleated Red Blood Cells % 0.1 N Comp Metabolic Panel 03/04/2015 [facility] Sodium 137 mmol/L N 133-[address] [place] [address] [phone] Potassium 3.7 mmol/L N 3.5-5.0 Chloride 103 mmol/L N 101-111 Co2 Carbon Dioxide 26 mmol/L N 22-32 Anion Gap 8 mmol/L N 2-11 Glucose 89 mg/dL N 70-100 Blood Urea Nitrogen 10 mg/dL N 6-24 Creatinine 0.60 mg/dL Low 0.67-1.17 BUN/Creatinine Ratio 16.7 N 8-20 Calcium 9.4 mg/dL N 8.6-10.3 Total Protein 7.0 g/dL N 6.4-8.9 Albumin 4.4 g/dL N 3.2-5.2 Globulin 2.6 g/dL N 2-4 Albumin/Globulin Ratio 1.7 N 1-3 Total Bilirubin 0.30 mg/dL N 0.2-1.0 Alkaline Phosphatase 119 U/L High 34-104 Alt 38 U/L N 7-52 Ast 39 U/L N 13-39 Laboratory test 03/04/2015 [facility] Lipase 20 U/L N 11.0- 82.0 finding [address] [place] [address] [phone] Urinalysis Profile 03/04/2015 [facility] Urine Color Yellow N [address] [place] [address] [phone] Urine Appearance Clear N Urine Specific [place] 1.024 N 1.010-1.030 Urine pH 6.0 N 5-9 Urine Urobilinogen Negative N Negative Urine Ketones Negative N Negative Urine Protein Negative N Negative Urine Leukocytes Negative N Negative Urine Blood Negative N Negative Urine Nitrite Negative N Negative Urine Bilirubin Negative N Negative Urine Glucose Negative N Negative Laboratory test finding 06/26/2014 In House Lab Throat Culture (Overnight) neg (884)- - Throat Culture Quick Strep neg CBC Auto Diff 05/03/2014 [facility] White Blood 8.2 10^3/uL N 4.8-10.[address] [place] [place] [address] [phone] Red Blood Count 5.24 10^6/uL N 4.0-5.4 Hemoglobin 14.5 g/dL N 14.0-18.0 Hematocrit 43 % N 42-52 Mean Corpuscular Volume 82 fL N 80-94 Mean Corpuscular Hemoglobin 28 pg N 27-31 Mean Corpuscular HGB Conc 34 g/dL N 31-36 Red Cell Distribution Width 14 % N 10.5-15 Platelet Count 226 10^3/uL N 150-450 Mean Platelet Volume 9 um3 N 7.4-10.4 Abs Neutrophils 4.7 10^3/uL N 1.5-7.7 Abs Lymphocytes 2.5 10^3/uL N 1.0-4.8 Abs Monocytes 0.6 10^3/uL N 0-0.8 Abs Eosinophils 0.3 10^3/uL N 0-0.6 Abs Basophils 0 10^3/uL N 0-0.2 Abs Nucleated RBC 0.01 10^3/uL N Granulocyte % 57.2 % N 38-83 Lymphocyte % 31.1 % N 25-47 Monocyte % 7.7 % N 1-9 Eosinophil % 3.4 % N 0-6 Basophil % 0.6 % N 0-2 Nucleated Red Blood Cells % 0.1 N Comp Metabolic Panel 05/03/2014 [facility] Sodium 138 mmol/L N 133-[address] [place] [address] [phone] Potassium 3.9 mmol/L N 3.5-5.0 Chloride 107 mmol/L N 101-111 Co2 Carbon Dioxide 25 mmol/L N 22-32 Anion Gap 6 mmol/L N 2-11 Glucose 118 mg/dL High 70-100 Blood Urea Nitrogen 12 mg/dL N 6-24 Creatinine 0.59 mg/dL Low 0.67-1.17 BUN/Creatinine Ratio 20.3 High 8-20 Calcium 9.1 mg/dL N 8.6-10.3 Total Protein 6.5 g/dL N 6.4-8.9 Albumin 4.1 g/dL N 3.2-5.2 Globulin 2.4 g/dL N 2-4 Albumin/Globulin Ratio 1.7 N 1-3 Total Bilirubin 0.30 mg/dL N 0.2-1.0 Alkaline Phosphatase 154 U/L High 34-104 Alt 22 U/L N 7-52 Ast 16 U/L N 13-39 Laboratory test 05/03/2014 [facility] C Reactive 1.57 mg/L N < 5.00 [address] [place] [address] [phone] CBC Auto Diff 03/26/2014 [facility] White Blood 9.0 N 4.8- 10.[address] Count 10^3/[place] [address] [phone] Red Blood Count 5.33 10^6/uL N 4.0-5.4 Hemoglobin 14.5 g/dL N 14.0-18.0 Hematocrit 43 % N 42-52 Mean Corpuscular Volume 80 fL N 80-94 Mean Corpuscular Hemoglobin 27 pg N 27-31 Mean Corpuscular HGB Conc 34 g/dL N 31-36 Red Cell Distribution Width 14 % N 10.5-15 Platelet Count 261 10^3/uL N 150-450 Mean Platelet Volume 9 um3 N 7.4-10.4 Abs Neutrophils 5.3 10^3/uL N 1.5-7.7 Abs Lymphocytes 2.7 10^3/uL N 1.0-4.8 Abs Monocytes 0.7 10^3/uL N 0-0.8 Abs Eosinophils 0.2 10^3/uL N 0-0.6 Abs Basophils 0.1 10^3/uL N 0-0.2 Abs Nucleated RBC 0.01 10^3/uL N Granulocyte % 59.1 % N 38-83 Lymphocyte % 29.8 % N 25-47 Monocyte % 8.1 % N 1-9 Eosinophil % 2.4 % N 0-6 Basophil % 0.6 % N 0-2 Nucleated Red Blood Cells % 0.1 N Comp Metabolic Panel 03/26/2014 [facility] Sodium 136 mmol/L N 133-[address] [place] [address] [phone] Potassium 4.1 mmol/L N 3.5-5.0 Chloride 102 mmol/L N 101-111 Co2 Carbon Dioxide 27 mmol/L N 22-32 Anion Gap 7 mmol/L N 2-11 Glucose 104 mg/dL High 70-100 Blood Urea Nitrogen 12 mg/dL N 6-24 Creatinine 0.57 mg/dL Low 0.67-1.17 BUN/Creatinine Ratio 21.1 High 8-20 Calcium 9.5 mg/dL N 8.6-10.3 Total Protein 6.4 g/dL N 6.4-8.9 Albumin 4.4 g/dL N 3.2-5.2 Globulin 2.0 g/dL N 2-4 Albumin/Globulin Ratio 2.2 N 1-3 Total Bilirubin 0.50 mg/dL N 0.2-1.0 Alkaline Phosphatase 177 U/L High 34-104 Alt 34 U/L N 7-52 Ast 24 U/L N 13-39 Laboratory test 03/26/2014 [facility] Hemoglobin A1c 5.7 % N Less than [address] 6.0 [place] [address] [phone] Insulin Level 37.4 mcIU/mL Abnormal 2.6 - 24.9 58 CBC With 10/31/2013 [facility] White Blood 9.1 10^3/uL N 4.8- 10.8 Manual Diff [address] [place] [address] [phone] Red Blood Count 5.28 10^6/uL N 4.0-5.4 Hemoglobin 14.6 g/dL N 14.0-18.0 Hematocrit 42 % N 42-52 Mean Corpuscular Volume 80 fL N 80-94 Mean Corpuscular Hemoglobin 28 pg N 27-31 Mean Corpuscular HGB Conc 35 g/dL N 31-36 Red Cell Distribution Width 14 % N 10.5-15 Platelet Count 285 10^3/uL N 150-450 Mean Platelet Volume 8 um3 N 7.4-10.4 Abs Neutrophils 5.2 10^3/uL N 1.5-7.7 Abs Lymphocytes 2.9 10^3/uL N 1.0-4.8 Abs Monocytes 0.7 10^3/uL N 0-0.8 Abs Eosinophils 0.2 10^3/uL N 0-0.6 Abs Basophils 0 10^3/uL N 0-0.2 Abs Nucleated RBC 0.01 10^3/uL N Neutrophil % 58 % N 38-83 Lymphocytes % 27 % N 25-47 Monocytes % 12 % N 0-13 Eosinophils % 2 % N 0-6 Basophil % 1 % N 0-2 RBC Morphology Normal N Normal Comp Metabolic Panel 10/31/2013 [facility] Sodium 138 mmol/L N 133-[address] [place] [address] [phone] Potassium 4.3 mmol/L N 3.7-5.6 Chloride 103 mmol/L N 101-111 Co2 Carbon Dioxide 28 mmol/L N 22-32 Anion Gap 7 mmol/L N 2-11 Glucose 95 mg/dL N 70-100 Blood Urea Nitrogen 10 mg/dL N 6-24 Creatinine 0.58 mg/dL Low 0.67-1.17 BUN/Creatinine Ratio 17.2 N 8-20 Calcium 9.6 mg/dL N 8.6-10.3 Total Protein 6.8 g/dL N 6.4-8.9 Albumin 4.5 g/dL N 3.2-5.2 Globulin 2.3 g/dL N 2-4 Albumin/Globulin Ratio 2.0 N 1-3 Total Bilirubin 0.40 mg/dL N 0.2-1.0 Alkaline Phosphatase 181 U/L High 34-104 Alt 42 U/L N 7-52 Ast 29 U/L N 13-39 Laboratory 10/31/2013 [facility] Insulin 25.5 Abnormal 2.6 - [address] Level mcIU/mL 24.9 [place], [place] [id number] [phone] Hemoglobin A1c 6.2 % High Less than 6.0 60 Lipid Profile 10/31/2013 [facility] Triglycerides 67 mg/dL N 61 (Trig/Chol/HDL) [address] [place] [address] [phone] Cholesterol 145 mg/dL N 62 HDL Cholesterol 38.1 mg/dL N 63 LDL Cholesterol 94 mg/dL N 64 Laboratory test 10/31/2013 [facility] TSH (Thyroid 1.75 IU/mL N 0.34-5.[address] [place] [address] Horm) [phone] Comp Metabolic 07/29/2013 [facility] Sodium 140 mmol/L 133- [address] [place] [address] [phone] Potassium 3.9 mmol/L 3.7-5.6 Chloride 106 mmol/L [...] 20 U/L 13-39 CBC Auto Diff 07/29/2013 [facility] White Blood 9.0 10^3/uL 4.8-10.[address] [place] [address] [phone] Red Blood Count 5.42 10^6/uL High 4.0-5.4 [...] Nucleated Red Blood Cells % 0.1 Throat-Beta 02/11/2013 [facility] Throat Beta (SEE NOTE) [address] [place] [address] [phone] Laboratory test 08/08/2012 [facility] Erythrocyte Sed 15 mm/Hr High 0-[address] [place] [address] [phone] Lyme Disease Serology Negative Negative 66 CBC With 08/08/2012 [facility] White Blood 7.8 10^3/uL 4.8- 10.8 Manual Diff [address] [place] [place] [address] [phone] Red Blood Count 5.18 10^6/uL 4.0-5.4 Hemoglobin [...] 2 % 0-6 RBC Morphology Normal Normal Throat-Beta Strept 05/02/2012 [facility] Throat Beta (SEE NOTE) [address] [place] [address] [phone] Laboratory test 02/23/2011 In House Lab .Hemoglobin in 14.2 finding (607)- - house Laboratory test 07/03/2010 In House Lab Throat Culture neg finding (607)- - (Overnight) Throat Culture Quick Strep neg Laboratory test finding 02/12/2008 In House Lab Hemoglobin 12.1 (607)- - Laboratory test finding 02/14/2007 In House Lab .Throat Culture Quick neg (607)- - Strep .Throat Culture Overnight neg per sendek 1 FASTING 2 FASTING 3 Therapeutic target for the treatment of diabetes mellitus patients is <7% HBA1C, and in selective patients <6.0%. Please refer to [place] [employer] diabetic care guidelines for further information. 4 Because ethnic data is not always readily [...] 15-29 5 Kidney failure <15 (or dialysis) 5 Therapeutic target for the treatment of diabetes mellitus patients is <7% HBA1C, and in selective patients <6.0%. Please refer to [place] [employer] diabetic care guidelines for further information. 6 Desirable: <150 Borderline High: 150-199 High: 200-499 Very High: >500 7 Desirable: <200 Borderline High: 200-239 High: >239 8 Low: <40 Desirable: 40-60 High: >60 9 Desirable: <100 Near Optimal: 100-129 Borderline High: 130-159 High: 160-189 Very High: >189 10 FASTING 11 FASTING 12 Because ethnic data is not always readily [...] 15-29 5 Kidney failure <15 (or dialysis) 13 [facility] Severe Sepsis and Septic Shock Management Bundle Measure requires all lactic acids initially measuring >2.0 mmol/L be repeated. 14 Because ethnic data is not always readily [...] 15-29 5 Kidney failure <15 (or dialysis) 15 Low risk: <1.00 Average risk: 1.00-3.00 High risk: >3.00 16 Therapeutic target for the treatment of diabetes mellitus patients is <7% HBA1C, and in selective patients <6.0%. Please refer to [place] [employer] diabetic care guidelines for further information. 17 Test Performed by: [address] [place] [address] 18 FASTING 19 FASTING 20 Desirable: <150 Borderline High: 150-199 High: 200-499 Very High: >500 21 Desirable: <200 Borderline High: 200-239 High: >239 22 Low: <40 Desirable: 40-60 High: >60 23 Desirable: <100 Near Optimal: 100-129 Borderline High: 130-159 High: 160-189 Very High: >189 24 Therapeutic target for the treatment of diabetes mellitus patients is <7% HBA1C, and in selective patients <6.0%. Please refer to [place] [employer] diabetic care guidelines for further information. 25 Test Performed by: [address] [place] [address] 26 Because ethnic data is not always [...] 5 Kidney failure <15 (or dialysis) 27 Please note: The following may produce a false positive D Dimer test: - Rheumatoid factor greater than 60 IU/ml - Plasma hemoglobin greater than 0.05 gm/dl - Bilirubin greater than 50 mg/dl - Lipids greater than 1000 mg/dl - FDP greater than 20 ug/ml 28 >100 to <200 pg/mL: likely compensated congestive heart failure (CHF) 200 to 400 pg/mL: likely moderate CHF >400 pg/mL: likely moderate to severe CHF 29 Because ethnic data is not always [...] 5 Kidney failure <15 (or dialysis) 30 [facility] Severe Sepsis and Septic Shock Management Bundle Measure requires all lactic acids initially measuring >2.0 mmol/L be repeated. 31 Result TnIDx:0.04 Called to [id number] at: 16:25:38 by:[id number] Read back by: [id number] Please note: The following may produce a false positive D Dimer test: - Rheumatoid factor greater than 60 IU/ml - Plasma hemoglobin greater than 0.05 gm/dl - Bilirubin greater than 50 mg/dl - Lipids greater than 1000 mg/dl - FDP greater than 20 ug/ml 33 >100 to <200 pg/mL: likely compensated congestive heart failure (CHF) 200 to 400 pg/mL: likely moderate CHF >400 pg/mL: likely moderate to severe CHF 34 [facility] Severe Sepsis and Septic Shock Management Bundle Measure requires all lactic acids initially measuring >2.0 mmol/L be repeated. 35 Because ethnic data is not always [...] 5 Kidney failure <15 (or dialysis) 36 Acute inflammation: >10.00 37 99th percentile=0.04 ng/mL Troponin results at [facility] and [facility] are not interchangeable. 38 [facility] Severe Sepsis and Septic Shock Management Bundle Measure requires all lactic acids initially measuring >2.0 mmol/L be repeated. 39 Because ethnic data is not always readily [...] 15-29 5 Kidney failure <15 (or dialysis) 40 Desirable <150 Borderline high 150-199 High 200-499 Very High >500 41 Desirable <200 Borderline high 200-239 High >239 42 Low <40 Desirable: 40-60 High: >60 43 Desirable: <100 mg/dL Near Optimal: 100-129 mg/dL Borderline High: 130-159 mg/dL High: 160-189 mg/dL Very High: >189 mg/dL 44 99th percentile=0.04 ng/mL Troponin results at [facility] and [facility] are not interchangeable. 45 The urine specimen was tested at the listed cutoffs: Drug class test level (ng/mL) Amphetamines 500 Barbiturates 200 Benzodiazepine metabolites 200 Cocaine metabolites 150 Cannabinoids 50 Opiates 300 Pcp 25 Specimen was received without chain of custody. Results should be used for medical purposes only. 46 Because ethnic data is not always readily [...] 15-29 5 Kidney failure <15 (or dialysis) 47 Therapeutic concentration: <50 ug/mL Toxic concentration: >120 ug/mL 48 Because ethnic data is not always readily [...] 15-29 5 Kidney failure <15 (or dialysis) 49 Reference Range and Interpretation: TnI (ng/mL) Interpretation Less Than 0.03 ng/mL Not supportive of diagnosis of [place] 0.03 - 0.50 ng/mL Indeterminate: suggest serial studies if clinically indicated. Greater than 0.5 ng/mL Consistent with diagnosis of [place] 50 Reference Range and Interpretation: TnI (ng/mL) Interpretation Less Than 0.03 ng/mL Not supportive of diagnosis of [place] 0.03 - 0.50 ng/mL Indeterminate: suggest serial studies if clinically indicated. Greater than 0.5 ng/mL Consistent with diagnosis of [place] 51 Because ethnic data is not always readily [...] 15-29 5 Kidney failure <15 (or dialysis) 52 [facility] Severe Sepsis and Septic Shock Management Bundle Measure requires all lactic acids initially measuring >2.0 mmol/L be repeated. 53 Unable to report test result due to hemolysis. 54 Unable to report test result due to hemolysis. 55 Acute inflammation: >10.00 56 Acute inflammation: >10.00 57 Therapeutic target for the treatment of diabetes Mellitus patients is <7% HBA1C, and in selective patients <6.0%.Please refer to [place] [employer] Diabetic care guidelines for further information. 58 Test Performed by: [place] [address] Adjunct Instructor: Jefferson Olmos M.D. 59 Test Performed by: [address] [address] Adjunct Instructor: Christiano Lainez III, M.D. 60 Therapeutic target for the treatment of diabetes Mellitus patients is <7% HBA1C, and in selective patients <6.0%.Please refer to [place] [employer] Diabetic care guidelines for further information. 61 Desirable <90 Borderline high 90-129 High >129 62 Desirable <170 Borderline high 170-199 High >199 63 Low <40 Borderline low 40-59 Desirable >59 64 Low <40 Borderline low 40-59 Desirable >59 mg/dL 65 RUN DATE: 02/14/13 [facility] LAB LIVE PAGE 1 RUN TIME: [address] [place] [address] Specimen Inquiry Name: RON ASHFORD : [address]: Giovana Driver MD Acct: [id number] Unit: [id number] AGE: 17 Location: [facility] Re02/11/13 SEX: M Status: DEP ER SPEC: [id number] GEOFF: 02/11/13-1947 [facility] DR: Rosalinda Farah NP REQ: [id number] RECD: 02/12/137 STATUS: SANDRA SUTTON DR: CHRIS Charles MD _ SOURCE: THROAT SPDESC: ORDERED: Throat Beta Str Procedure Result Verified Site Throat Beta Strep Culture Final 02/14/13- 0843 ML Negative For Group A Beta Streptococcus END OF REPORT * ML=Testing performed at Main Lab DEPARTMENT OF PATHOLOGY, [facility] [place], [place] [address] Lenny Smith M.D. Director [facility] Permit #[id number] 66 Serologic response to B. burgdorferi infection is not detected, but cannot rule out early infection during which low or undetectable antibody levels to B. burgdorferi may be present. If clinically indicated, a new serum specimen should be submitted in 7-14 days. Test Performed by: [address] [address] Adjunct Instructor: Christiano Lainez III, M.D. 67 RUN DATE: 05/04/12 [facility] LAB LIVE PAGE 1 RUN TIME: [address] [place] [address] Specimen Inquiry Name: RON ASHFORD : [address]: Zuleyka AGUILAR,Theo Callaway Acct: [id number] Unit: [id number] AGE: 16 Location: [facility] Re05/02/12 SEX: M Status: DEP ER SPEC: [id number] GEOFF: 05/02/[address]: Zuleyka AGUILAR, Theo Callaway REQ: [id number] RECD: 05/02/12 STATUS: SANDRA SUTTON DR: CHRIS Charles MD,Aníbal _ SOURCE: THROAT SPDESC: ORDERED: Throat Beta Str Procedure Result Verified Site Throat Beta Strep Culture Final 05/04/12- 0850 ML Negative For Group A Beta Streptococcus END OF REPORT * ML=Testing performed at Main Lab DEPARTMENT OF PATHOLOGY, [address] [place] [address] Lenny Smith M.D. Director [facility] Permit #[id number] Procedures Date Code Description Status 07/04/2017 48825 Remove Impact Cerumen irrigation only Completed 04/03/2003 17190 Nebulizer Treatment Completed 12/23/1998 37081 Nebulizer/[place] [address] For Completed Treatment 11/12/1998 77392 Remove Impacted Cerumen with instrumentation Completed Encounters Type Date Location Provider Dx Diagnosis Office Visit 02/02/2018 [facility] Henny [place], N50.812 Left testicular pain 9:00a D.O. Office Visit 12/14/2017 [facility] Office Naresh Sharif, B00.1 Herpesviral 4:15p C.P.N.P vesicular dermatitis Office Visit 12/11/2017 [facility] Office Naresh Sharif, R10.30 Lower abdominal 12:00p C.P.N.P pain, unspecified L20.9 Atopic dermatitis, unspecified E66.9 Obesity, unspecified Office Visit 10/03/2017 9:00a [facility] Office Naresh Sharif, R73.03 Prediabetes C.P.N.P E66.9 Obesity, unspecified L20.9 Atopic dermatitis, unspecified Office Visit 07/28/2017 12:00p [facility] Office Naresh Sharif, N50.812 Left testicular C.P.N.P pain Office Visit 07/04/2017 9:00a [facility] Office Naresh Sharif, R73.03 Prediabetes C.P.N.P H61.21 Impacted cerumen, right ear Office Visit 05/19/2017 5:30p [facility] Office Basilio Nielsen, J20.9 Acute bronchitis, III, M.D. unspecified Office Visit 05/02/2017 8:15a [facility] Office Naresh R73.03 Prediabetes Kole, C.P.N.P Office Visit 04/21/2017 10:00a [facility] Office Naresh Z00.00 Encntr for general [place], adult medical exam C.P.N.P w/o abnormal findings E66.9 Obesity, unspecified K21.9 Gastro-esophageal reflux disease without esophagitis K76.0 Fatty (change of) liver, not elsewhere classified Office Visit 04/19/2017 9:00a [facility] Office Henny Gil, K59.00 Constipation, D.O. unspecified Office Visit 02/28/2017 11:15a [facility] Aníbal Charles, I88.9 Nonspecific M.D. lymphadenitis, unspecified Office Visit 02/09/2017 8:45a [facility] Basilio Preston K21.9 Gastro-esophageal Lambert, III, reflux disease M.D. without esophagitis K76.0 Fatty (change of) liver, not elsewhere classified S40.911D Unsp superficial injury of right shoulder, subs encntr Office Visit 02/01/2017 4:30p [facility] Aníbal Chrales, R59.9 Enlarged lymph M.D. nodes, unspecified Office Visit 11/28/2016 11:45a [facility] Naresh S93.402A Sprain of [place], unspecified C.P.N.P ligament of left ankle, init encntr Office Visit 09/26/2016 11:45a [facility] Office Naresh R06.00 Dyspnea, [place], unspecified C.P.N.P R00.2 Palpitations Office Visit 08/30/2016 4:15p [facility] Basilio Preston B35.4 Tinea corporis Lambert, III, M.D. Office Visit 06/18/2016 9:30a [facility] Naresh S06.0x1D Concussion w Loc [place], of 30 minutes or C.P.N.P less, subs Office Visit 06/07/2016 8:45a [facility] Office Naresh J02.9 Acute pharyngitis, [place], unspecified C.P.N.P Office Visit 05/30/2016 9:00a [facility] Office Naresh S06.0x1A Concussion w Loc [place], of 30 minutes or C.P.N.P less, init Office Visit 04/20/2016 7:45a [facility] Aníbal Charles, Z00.00 Encntr for general M.D. adult medical exam w/o abnormal findings Z13.89 Encounter for screening for other disorder K21.9 Gastro-esophageal reflux disease without esophagitis K76.0 Fatty (change of) liver, not elsewhere classified E66.9 Obesity, unspecified R03.0 Elevated blood-pressure reading, w/o diagnosis of htn F90.1 Attn-defct hyperactivity disorder, predom hyperactive type F41.9 Anxiety disorder, unspecified Office Visit 04/08/2016 4:30p [facility] Naresh Sharif, L04.0 Acute lymphadenitis C.P.N.P of face, head and neck Office Visit 03/24/2016 8:00a [facility] Basilio CortezJan Nielsen, K21.9 Gastro- esophageal III, M.D. reflux disease without esophagitis K76.0 Fatty (change of) liver, not elsewhere classified Office Visit 02/23/2016 9:15a [facility] Basilio Nielsen, R07.9 Chest pain, III, M.D. unspecified K76.0 Fatty (change of) liver, not elsewhere classified Office Visit 02/08/2016 12:15p [facility] Office Aníbal Charles, R07.9 Chest pain , M.D. unspecified E66.9 Obesity, unspecified R03.0 Elevated blood-pressure reading, w/o diagnosis of htn F90.1 Attn-defct hyperactivity disorder, predom hyperactive type Office Visit 10/21/2015 1:00p [facility] Aníbal Charles, F90.1 Attn-defct M.D. hyperactivity disorder, predom hyperactive type Office Visit 10/05/2015 4:00p [facility] Office Naresh M54.5 Low back pain [place], C.P.N.P Office Visit 07/07/2015 2:00p [facility] Basilio Preston M25.562 Pain in left knee Lambert, III, M.D. Office Visit 04/07/2015 11:00a [facility] Aníbal Charles, Z00.121 Encounter for M.D. 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 pain Office Visit 02/27/2015 12:30p [facility] Naresh H60.8x1 Other otitis [place], externa, right ear C.P.N.P Office Visit 01/20/2015 1:45p [facility] Office Aníbal Charles, F90.1 Attn-defct M.D. hyperactivity disorder, predom hyperactive type F90.1 Attn-defct hyperactivity disorder, predom hyperactive type Office Visit 06/30/2014 11:00a [facility] Office Basilio Preston 465.9 URI Upper Lambert, III, Respiratory M.D. Infections Acute Unspec Sites Office Visit 06/26/2014 1:15p [facility] Office Aníbal Charles, 314.01 Attention Deficit M.D. Disorder W/ Hyperactivity 465.9 URI Upper Respiratory Infections Acute Unspec Sites 278.00 Obesity Unspec BMI 30-39.9 Office Visit 03/25/2014 8:30a [facility] Office Aníbal Charles, V20.2 Routine Infant Or M.D. 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 Disorder W/ Hyperactivity 278.00 Obesity Unspec BMI 30-39.9 V65.40 Counseling Other Unspec NOS Office Visit 07/11/2013 11:45a Main Office Naresh Sharif, 465.9 URI Upper C.P.N.P Respiratory Infections Acute Unspec Sites Office Visit 03/18/2013 3:00p [facility] Office Aníbal Charles, V20.2 Routine Infant Or M.D. Child Health Check 314.01 Attention Deficit Disorder W/ Hyperactivity 278.00 Obesity Unspec BMI 30-39.9 V40.0 Learning Problem V20.2 Routine Or Child Health Check Office Visit 02/01/2013 4:00p [facility] Aníbal Charles, 314.01 Attention Deficit M.D. Disorder W/ Hyperactivity 278.00 Obesity Unspec BMI 30-39.9 706.1 Acne Other Office Visit 01/15/2013 11:45a [facility] Naresh Sharif, 465.9 URI Upper C.P.N.P Respiratory Infections Acute Unspec Sites Office Visit 10/17/2012 8:45a [facility] Office Aníbal Charles, 314.01 Attention Deficit M.D. Disorder W/ Hyperactivity 278.00 Obesity Unspec BMI 30-39.9 Office Visit 08/09/2012 9:30a [facility] Office Basilio CortezJan Gabidaryn, 959.7 Injury Knee Leg III, M.D. Ankle & Foot Other & Unspec Office Visit 08/08/2012 11:45a [facility] Office Richard Pal, 959.7 Injury Knee Leg M.D. Ankle & Foot Other & Unspec Office Visit 03/12/2012 11:30a [facility] Office Aníbal Charles M.D. V20.2 Routine Or Child Health Check 314.01 Attention Deficit Disorder W/ Hyperactivity V40.0 Learning Problem 278.00 Obesity Unspec BMI 30-39.9 Office Visit 01/19/2012 12:45p [facility] Office Naresh Sharif, 465.9 URI Upper C.P.N.P Respiratory Infections Acute Unspec Sites Office Visit 11/17/2011 11:00a [facility] Office Aníbal Charles, 314.01 Attention Deficit M.D. Disorder W/ Hyperactivity 278.00 Obesity Unspec BMI 30-39.9 V40.0 Learning Problem Office Visit 09/13/2011 4:00p [facility] Office Naresh Sharif, 850.0 Concussion W/ No C.P.N.P Loss Of Consciousness Office Visit 05/25/2011 9:00a [facility] Office Aníbal Charles, 314.01 Attention Deficit M.D. Disorder W/ Hyperactivity 278.00 Obesity Unspec BMI 30-39.9 V40.0 Learning Problem Office Visit 04/22/2011 2:15p [facility] Office Aníbal Charles, 314.01 Attention Deficit M.D. Disorder W/ Hyperactivity Office Visit 02/23/2011 11:00a [facility] Office Aníbal Charles V20.2 Routine Infant Or M.D. Child Health Check V40.0 Learning Problem 278.00 Obesity Unspec BMI 30-39.9 530.81 Esophageal Reflux Office Visit 07/08/2010 1:00p [facility] Office Aníbal Charles, 530.81 Esophageal Reflux M.D. Office Visit 07/03/2010 10:30a [facility] Office Henny Gil, 462 Pharyngitis Acute D.O. 474.10 Hypertrophy Tonsils W/ Adenoids Office Visit 02/17/2010 11:30a [facility] Office Aníbal Charles, V20.2 Routine Or M.D. Child Health Check 278.02 Overweight BMI 25-29.9 V40.0 Learning Problem 474.11 Hypertrophy Tonsils Alone Office Visit 2009 11:30a [facility] Office Henny Gil, V41.1 Eye Problem Other D.O. Office Visit 02/16/2009 3:30p [facility] Office Aníbal Charles, V20.2 Routine Or M.D. Child Health Check 278.02 Overweight BMI 25-29.9 V40.0 Learning Problem 474.11 Hypertrophy Tonsils Alone 110.5 Dermatophytosis Body Office Visit 02/12/2008 3:00p [facility] Office Aníbal Charles, V20.2 Routine Or M.D. Child Health Check 278.02 Overweight BMI 25-29.9 V40.0 Learning Problem Office Visit 05/16/2007 9:45a [facility] Office Shannan Umanzor, 465.9 URI Upper C.P.N.P. Respiratory Infections Acute Unspec Sites Office Visit 02/13/2007 12:15p [facility] Office Shannan Umanzor, 684 Impetigo C.P.N.P. Office Visit 12/07/2006 3:00p [facility] Office Aníbal Charles, V20.2 Routine Infant Or M.D. Child Health Check 278.02 Overweight BMI 25-29.9 V40.0 Learning Problem Office Visit 04/04/2006 4:45p [facility] Office Aníbal Charles, 382.9 Otitis Media Unspec M.D. Office Visit 03/29/2006 1:00p [facility] Office Aníbal Charles, 465.9 URI Upper M.D. Respiratory Infections Acute Unspec Sites 461.9 Sinusitis Acute Unspec Office Visit 12/09/2005 8:00a [facility] Office Aníbal Charles, V20.2 Routine Or M.D. Child Health Check Office Visit 07/12/2005 9:15a [facility] Office Aníbal Charles, 465.9 URI Upper M.D. Respiratory Infections Acute Unspec Sites Office Visit 02/21/2005 9:15a [facility] Office Kenisha Del Cid, 472.0 Rhinitis Chronic R.P.A.C. Office Visit 07/05/2004 9:30a [facility] Office Hennymihai Gil, 786.2 Cough D.O. Office Visit 06/29/2004 9:45a [facility] Office Kenisha Maria Eugenia, 789.00 Pain Abdominal R.P.A.C. Unspec Site Office Visit 05/17/2004 11:00a [facility] Office Aníbal Charles, 519.1 Trachea & Bronchus M.D. Other Diseases Not Class Elsewhere 465.9 URI Upper Respiratory Infections Acute Unspec Sites Office Visit 04/07/2004 9:15a [facility] Office Hennymihai Gil, 558.9 Gastroenteritis & D.O. Colitis Noninfectious Other Office Visit 03/09/2004 1:15p [facility] Office Aníbal Charles, 465.9 URI Upper Respiratory M.D. Infections Acute Unspec Sites Office Visit 01/17/2004 10:45a Main Office Richard 461.9 Sinusitis Acute Unspec Ren Pal Office Visit 01/05/2004 10:15a [facility] Office Kenisha Del Cid, V20.2 Routine Or R.P.A.C. Child Health Check Office Visit 04/03/2003 11:00a [facility] Office Kenisha Del Cid, 465.9 URI Upper Respiratory R.P.A.C. Infections Acute Unspec Sites Office Visit 01/14/2003 2:15p [facility] Office Hennymihai Gil, V20.2 Routine Infant Or D.O. Child Health Check Office Visit 10/18/2002 12:30p [facility] Office Henny Gil, 382.9 Otitis Media Unspec D.O. Office Visit 07/02/2002 3:15p [facility] Office Basilio Preston 465.9 URI Upper Respiratory Lambert, III, Infections Acute M.D. Unspec Sites Office Visit 05/10/2002 11:45a East Office Basilio Preston 786.2 Cough Lambert, III, M.D. 465.9 URI Upper Respiratory Infections Acute Unspec Sites Office Visit 04/22/2002 2:15p East Office Kenisha Del Cid, 382.9 Otitis Media Unspec R.P.A.C. Office Visit 04/04/2002 12:00p East Office Kenisha Del Cid 382.9 Otitis Media Unspec R.P.A.C. Office Visit 03/11/2002 2:15p [facility] Office Kenisha Del Cid, 780.6 Fever R.P.A.C. Office Visit 02/11/2002 12:00p East Office Richard 786.2 Cough Leighton Pal. Office Visit 02/08/2002 3:30p East Office Richard 461.9 Sinusitis Acute Demarco, Unspec M.D. Office Visit 07/10/2001 2:30p Main Office Aníbal Charles, 382.9 Otitis Media Unspec M.D. Office Visit 06/20/2001 10:15a Main Office Basilio Nielsen III, M.D. Office Visit 11/07/2000 2:30p Main Office Zaira Stack M.D. Office Visit 09/26/2000 2:15p Main Office Zaira Stack M.D. Office Visit 05/29/2000 12:15p Main Office Shannan Umanzor, 487.1 Influenza w/other C.P.N.P. respiratory manifestations Plan of Treatment 03/23/2018 - Naresh Sharif, C.P.N.PR51 HeadacheNew Xrays:MRI-Brain w/o contract, Ordered: 03/23/18Comments:Has not yet tried Naproxen prescribed by ER - will merchandise pickup/receiving associate prescription today. With further numbness, visual change, worsening headache, or new symptoms Ron will call or seek care in ER.
--- NOTE | 2018-04-13 13:07 | ED ---
HPI Chest Pain - HPI Summary HPI Summary: This pt is a 22 y/o male presenting to [facility] via EMS c/o chest pain today. Pt reports he was sitting in his bathtub when his chest pain began suddenly about 2.5 hours [employer]. Pt states he has episodes of sharp pain in his mid sternum that last about 10 minutes at a time. He thought this was heart burn and he took Trina [place], gas tablets, and Miralax without relief. Pt notes his pain worsened. His pain is not worse with a deep breath but it is aggravated with movement. Denies fever, chills, nausea, vomiting, SOB. PMHx: heart burn, pre-diabetes. No FHx of [place] at age 22. - History of Current Complaint Time Seen by Provider: 04/13/18 12:59 Hx Obtained From: Patient Onset/Duration: Started Hours Ago, Atraumatic, Still Present Timing: Intermittent, Lasting Minutes - 10 Current Severity: Moderate Chest Pain Location: Mid Sternal Chest Pain Radiates: No Character: Sharp/Stabbing - sharp Aggravating Factor(s): Movement Alleviating Factor(s): Nothing Associated Signs and Symptoms: Positive: Chest Pain. Negative: Shortness of Breath, Fever, Chills, Diaphoresis, Nausea, Palpitations, Vomiting - Additional Pertinent History Primary Care Physician: - Allergy/Home Medications Allergies/Adverse Reactions: Allergies Allergy/AdvReac Type Severity Reaction Status Date / Time bee venom protein (honey bee) Allergy Swelling Verified 04/04/18 13:41 PMH/Surg Hx/FS Hx/Imm Hx Endocrine/Hematology History: Reports: Hx Diabetes - Pre-diabetic Denies: Hx Thyroid Disease Cardiovascular History: Denies: Hx Congestive Heart Failure, Hx Deep Vein Thrombosis, Hx Hypertension , Hx Myocardial Infarction, Hx Pacemaker/ICD Respiratory History: Denies: Hx Asthma, Hx Chronic Obstructive Pulmonary Disease (COPD), Hx Lung Cancer, Hx Pneumonia, Hx Pulmonary Embolism GI History: Reports: Hx Gastroesophageal Reflux Disease Denies: Hx Gall Bladder Disease, Hx Gastrointestinal Bleed, Hx Ulcer, Hx Urosepsis History: Denies: Hx Kidney Stones, Hx Renal Disease Sensory History: Denies: Hx Hearing Aid Neurological History: Reports: Other Neuro Impairments/Disorders - Concussion Denies: Hx Dementia, Hx Migraine, Hx Seizures, Hx Transient Ischemic Attacks (TIA) Psychiatric History: Reports: Hx Anxiety, Hx Attention Deficit Hyperactivity Disorder, Hx Depression Denies: Hx Eating Disorder, Hx Panic Disorder, Hx Schizophrenia, Hx Bipolar Disorder, Hx of Violent Episodes Against Others - Surgical History Surgery Procedure, Year, and Place: tonsillectomy; adenectomy; tubes in bilat ears Infectious Disease History: Denies: Hx Clostridium Difficile, Hx Hepatitis, Hx Human Immunodeficiency Virus (HIV), Hx of Known/Suspected MRSA, Hx Shingles, Hx Tuberculosis, Hx Known/ Suspected VRE, Hx Known/Suspected VRSA, History Other Infectious Disease, Traveled Outside the [place] in Last 30 Days - Family History Known Family History: Positive: Cardiac Disease - grandfather, mother with palpitations of unk etiology, Diabetes - paternal , Other - CVA Negative: Hypertension Family History: No [place] in FHx at age of 22. - Social History Alcohol Use: None Hx Substance Use: No Substance Use Type: Reports: Marijuana Substance Use Comment - Amount & Last Used: occasionally Hx Tobacco Use: No Smoking Status (MU): Never Smoked Tobacco Have You Smoked in the Last Year: No Review of Systems Negative: Fever, Chills Positive: Chest Pain Negative: Shortness Of Breath Negative: Vomiting, Nausea Positive: no symptoms reported, see HPI Skin: Negative Neurological: Negative All Other Systems Reviewed And Are Negative: Yes Physical Exam - Summary Physical Exam Summary: VITAL SIGNS: Reviewed. GENERAL: Patient is a well-developed and nourished male who is lying comfortable in the stretcher. Patient is not in any acute respiratory distress. HEAD AND FACE: No signs of trauma. No ecchymosis, hematomas or skull depressions. No sinus tenderness. EYES: PERRLA, EOMI x 2, No injected conjunctiva, no nystagmus. EARS: Hearing grossly intact. Ear canals and tympanic membranes are within normal limits. MOUTH: Oropharynx within normal limits. NECK: Supple, trachea is midline, no adenopathy, no JVD, no carotid bruit, no c- spine tenderness, neck with full ROM. CHEST: Symmetric, no tenderness at palpation LUNGS: Clear to auscultation bilaterally. No wheezing or crackles. CVS: Regular rate and rhythm, S1 and S2 present, no murmurs or gallops appreciated. ABDOMEN: Soft, some epigastric tenderness. No signs of distention. No rebound, no guarding, and no masses palpated. Bowel sounds are normal. EXTREMITIES: FROM in all major joints, no edema, no cyanosis or clubbing. NEURO: Alert and oriented x 3. No acute neurological deficits. Speech is normal and follows commands. SKIN: Dry and warm Triage Information Reviewed: Yes Vital Signs On Initial Exam: Initial Vitals Temp Pulse Resp BP Pulse Ox 98.1 F 95 20 174/90 96 04/13/18 12:57 04/13/18 12:57 04/13/18 12:57 04/13/18 12:57 04/13/18 12:57 Vital Signs Reviewed: Yes Diagnostics - Laboratory Result Diagrams: 04/13/18 13:10 04/13/18 13:10 Lab Statement: Any lab studies that have been ordered have been reviewed, and results considered in the medical decision making process. - Radiology Chest XR Radiology Interpretation Completed By: Radiologist Summary of Radiographic Findings: IMPRESSION: No active cardiopulmonary disease. Dr. Alaniz has reviewed this report. - EKG 12:51 Cardiac Rate: NL - at 89 bpm EKG Rhythm: Sinus Rhythm Summary of EKG Findings: No ST elevations. Chest Pain Course/Dx - Course Assessment/Plan: This pt is a 22 y/o male presenting to [facility] via EMS c/o chest pain today. Pt reports he was sitting in his bathtub when his chest pain began suddenly about 2.5 hours [employer]. Pt states he has episodes of sharp pain in his mid sternum that last about 10 minutes at a time. He thought this was heartburn and he took Trina [place] Pal[place], gas tablets, and Miralax without relief. Pt notes his pain worsened. His pain is not worse with a deep breath but it is aggravated with movement. Denies fever, chills, nausea, vomiting, SOB. PMHx: heartburn, pre-diabetes. No FHx of FL at age 22. Blood work without any significant abnormality except for glucose of 126, AST is 56 and AST is 119. First troponin 0.01. Initially the patient was given a GI cocktail and the symptoms significantly improved. Second troponin is also 0.01. Patient was given an additional dose of Pepcid and the patient is asymptomic at this point. EKG is a normal sinus rhythm without any ST elevation. At this point I discussed all my findings and test results with the patient and the need to follow-up with his primary care physician. He will be given a prescription for Omeprazole. I discussed all the findings and test results with the patient. Patient was instructed to return to the emergency room immediately if any of the symptoms return or worsens. Plan of care was discussed with the patient and understands and agrees. All questions were answered at patient satisfaction. There were no further complaints or concerns. Lung exam before discharge: CTA B/L. Good air exchange. No wheezing or crackles heard. CVS: S1 and S2 present. No murmurs appreciated. Patient is alert and oriented x 3. Patient is hemodynamically stable. Patient will be discharged home with follow up PCP in the next 2-3 days. - Chest Pain Differential Diagnosis/HQI/PQRI: Acute FL, ACS, Angina, CHF, Chest Wall, GI Disease, Lower Respiratory Infection - Diagnoses Provider Diagnoses: Gastritis, Epigastric pain Discharge - Sign-Out/Discharge Documenting (check all that apply): Patient Departure - Discharge home - Discharge Plan Condition: Stable Disposition: HOME Prescriptions: Omeprazole CAP* [Prilosec CAP* 20 MG] 20 mg PO BID #30 cap. Patient Education Materials: Gastritis (ED), Epigastric Pain (ED) Referrals: Naresh Sharif, FINISHING RANGE OPERATOR [Primary Care Provider] - Additional Instructions: FOLLOW UP WITH YOUR PRIMARY CARE PROVIDER WITHIN ONE WEEK FOR HIGH BLOOD PRESSURE NOTED TODAY. RETURN TO THE ED FOR ANY NEW OR WORSENING SYMPTOMS. - Billing Disposition and Condition Condition: STABLE Disposition: Home - Attestation Statements Document Initiated by Osbaldo: Yes Documenting Scribe: Venita Schmidt Provider For Whom Osbaldo is Documenting (Include Credential): Fco Alaniz MD Scribe Attestation: Venita Edge scribed for Fco Alaniz MD on 04/13/18 at 1905. Scribe Documentation Reviewed: Yes Provider Attestation: The documentation as recorded by the Venita christopher accurately reflects the service I personally performed and the decisions made by me, Fco Alaniz MD Status of Scribe Document: Viewed
[2018-04-13 13:25] LABS: ABS Basophils 0.1 10^3/ul (0-0.2); ABS Eosinophils 0.1 10^3/ul (0-0.6); ABS Monocytes 0.8 10^3/ul (0-0.8); ABS Neutrophils 5.5 10^3/ul (1.5-7.7); ABS Nucleated RBC 0 10^3/ul; Eosinophil % 1.7 %; Hematocrit 43 % (42-52); Hemoglobin 14.4 g/dl (14.0-18.0); Lymphocyte % 23.9 %; Mean Corpuscular HGB Conc 34 g/dl (31-36); Mean Corpuscular Hemoglobin 28 pg (27-31); Mean Corpuscular Volume 82 fL (80-94); Mean Platelet Volume 8.3 fL (7.4-10.4); Nucleated Red Blood Cells % 0.1; Platelet Count 260 10^3/ul (150-450); Red Blood Count 5.23 10^6/ul (4.00-5.40); Red Cell Distribution Width 14 % (10.5-15); White Blood Count 8.6 10^3/ul (3.5-10.8)
[2018-04-13] MEDS: Al Hydrox/Mg Hydrox/Simet LIQ* 30 ML UDC PO ONE (13:33)
[2018-04-13] MEDS: Lidocaine 2% VISCOUS* 15 ML UDC PO ONE (13:33)
[2018-04-13 13:40] LABS: Albumin/Globulin Ratio 1.7 (1-3); BUN/Creatinine Ratio 17.2 (8-20); Calcium 9.4 mg/dL (8.6-10.3); EGFR Non-African American 178.6 (>60); Globulin 2.4 g/dL (2-4); Potassium 3.9 mmol/L (3.5-5.0); Total Bilirubin 0.3 mg/dL (0.2-1.0); Total Protein 6.4 g/dL (6.4-8.9)
[2018-04-13 14:22] LABS: TSH (Thyroid Stimulating Horm) 1.25 mcIU/mL (0.34-5.60)
[2018-04-13] MEDS: Famotidine TAB* 20 MG PO ONE (16:29)
[2018-04-13 17:03] LABS: Urine Appearance Clear; Urine Bilirubin Negative (Negative); Urine Blood Negative (Negative); Urine Color Yellow; Urine Glucose Negative (Negative); Urine Ketones Negative (Negative); Urine Nitrite Negative (Negative); Urine Protein Negative (Negative); Urine Specific Gravity 1.023 (1.010-1.030); Urine Urobilinogen Negative (Negative)
[2018-04-13 17:23] VITALS: BP 113/62
== END 2018-04-13 17:22 | disposition home or self-care (01) ==
LOC: ED 12:45
DX: K29.70 Gastritis, unspecified, without bleeding (principal); R10.13 Epigastric pain; R73.03 Prediabetes; F90.9 Attention-deficit hyperactivity disorder, unspecified type; K21.9 Gastro-esophageal reflux disease without esophagitis; F32.9 Major depressive disorder, single episode, unspecified
CPT/HCPCS: 36415; 71046; 80053; 81003; 82550; 82553; 83605; 83880; 84443; 84484; 85025; 93005; 99283; A9270-GY

== ENCOUNTER 2018-09-09 14:29 | Emergency (ER) | payer OTHER ==
--- NOTE | 2018-09-09 15:03 | ED ---
Psychiatric Complaint - HPI Summary HPI Summary: Patient is a 22-year-old female with a history of diabetes, anxiety and depression presenting to the ED following an argument with his mother. He states he stated "E male on him just going, soft." So the police were called and they brought him here to the ED. He denies these thoughts. He does endorse self-harm, but states he want to hurt himself instead of others to take out his anger. He endorses marijuana use, denies any other drug use. - History Of Current Complaint Chief Complaint: EDMentalHealth Time Seen by Provider: 09/09/18 14:44 Hx Obtained From: Patient Onset/Duration: Sudden Onset Timing: Constant Severity Initially: Moderate Severity Currently: Moderate Aggravating Factor(s): Recent Stress Alleviating Factor(s): Nothing Associated Signs And Symptoms: Positive: Negative Has Suicidal: Reports: Thoughts Has Homicidal: Reports: Thoughts - Risk Factor(s) Completed Suicide Risk Factors: Male - Allergies/Home Medications Allergies/Adverse Reactions: Allergies Allergy/AdvReac Type Severity Reaction Status Date / Time bee venom protein (honey bee) Allergy Swelling Verified 06/20/18 06:05 PMH/Surg Hx/FS Hx/Imm Hx Previously Healthy: Yes Endocrine/Hematology History: Reports: Hx Diabetes - ON ORAL MEDICATION FOR Denies: Hx Thyroid Disease Cardiovascular History: Denies: Hx Congestive Heart Failure, Hx Deep Vein Thrombosis, Hx Hypertension , Hx Myocardial Infarction, Hx Pacemaker/ICD, Other Cardiovascular Problems/ Disorders Respiratory History: Denies: Hx Asthma, Hx Chronic Obstructive Pulmonary Disease (COPD), Hx Lung Cancer, Hx Pneumonia, Hx Pulmonary Embolism GI History: Reports: Hx Gastroesophageal Reflux Disease - ON MEDICATION FOR Denies: Hx Gall Bladder Disease, Hx Gastrointestinal Bleed, Hx Ulcer, Hx Urosepsis History: Denies: Hx Kidney Stones, Hx Renal Disease Sensory History: Reports: Hx Contacts or Glasses - GLASSES Denies: Hx Hearing Aid Opthamlomology History: Reports: Hx Contacts or Glasses - GLASSES Neurological History: Reports: Hx Migraine - HX OF - TREATS WITH IBUPROFEN, Other Neuro Impairments/Disorders - [id number] YEARS AGO Denies: Hx Dementia, Hx Seizures, Hx Transient Ischemic Attacks (TIA) Psychiatric History: Reports: Hx Anxiety - HX OF- NO MEDIDCAITON FOR AT THIS TIME, Hx Attention Deficit Hyperactivity Disorder, Hx Depression Denies: Hx Eating Disorder, Hx Panic Disorder, Hx Schizophrenia, Hx Bipolar Disorder, Hx of Violent Episodes Against Others - Surgical History Surgery Procedure, Year, and Place: tonsillectomy; adenectomy; tubes in bilat ears Hx Anesthesia Reactions: No - Immunization History Hx Pertussis Vaccination: No Immunizations Up to Date: Yes Infectious Disease History: No Infectious Disease History: Denies: Hx Clostridium Difficile, Hx Hepatitis, Hx Human Immunodeficiency Virus (HIV), Hx of Known/Suspected MRSA, Hx Shingles, Hx Tuberculosis, Hx Known/ Suspected VRE, Hx Known/Suspected VRSA, History Other Infectious Disease, Traveled Outside the [place] in Last 30 Days - Family History Known Family History: Positive: Cardiac Disease - grandfather, mother with palpitations of unk etiology, Diabetes - paternal , Other - CVA Negative: Hypertension Family History: No GA in FHx at age of 22. - Social History Occupation: Employed Part-time Lives: With Family Alcohol Use: Occasionally Hx Substance Use: No Substance Use Type: Reports: Marijuana Substance Use Comment - Amount & Last Used: occasionally Hx Tobacco Use: No Smoking Status (MU): Never Smoked Tobacco Have You Smoked in the Last Year: No Review of Systems Constitutional: Negative Negative: Fever, Chills, Fatigue, Skin Diaphoresis Negative: Palpitations, Chest Pain Negative: Shortness Of Breath, Cough Negative: Arthralgia, Myalgia Positive: Bruising - bilateral arms d/t hitting door (per patient), Other Neurological: Negative Positive: Anxious, Other - angry All Other Systems Reviewed And Are Negative: Yes Physical Exam Triage Information Reviewed: Yes Vital Signs On Initial Exam: Initial Vitals Temp Pulse Resp BP Pulse Ox 97.8 F 108 20 159/91 98 09/09/18 14:40 09/09/18 14:40 09/09/18 14:40 09/09/18 14:40 09/09/18 14:40 Vital Signs Reviewed: Yes Appearance: Positive: Well-Appearing, Well-Nourished Skin: Positive: Skin Color Reflects Adequate Perfusion Head/Face: Positive: Normal Head/Face Inspection Eyes: Positive: EOMI, Conjunctiva Clear Neck: Positive: Supple, Nontender, No Lymphadenopathy Respiratory/Lung Sounds: Positive: Clear to Auscultation, Breath Sounds Present Cardiovascular: Positive: RRR, Pulses are Symmetrical in both Upper and Lower Extremities Abdomen Description: Positive: Nontender, Soft Musculoskeletal: Positive: Strength/ROM Intact Neurological: Positive: Speech Normal Psychiatric: Positive: Affect/Mood Appropriate, Other AVPU Assessment: Alert Diagnostics - Vital Signs Vital Signs Temp Pulse Resp BP Pulse Ox 09/09/18 14:40 97.8 F 108 20 159/91 98 - Laboratory Result Diagrams: 09/09/18 15:25 09/09/18 15:25 Lab Statement: Any lab studies that have been ordered have been reviewed, and results considered in the medical decision making process. Course/Dx - Course Course Of Treatment: On arrival into the ED, patient states he feels well, at his baseline. He is not angry. He states he denies any SI or HI. He has been on his medications as prescribed. He states he was just saying he wanted to commit suicide out of anger and does not actually feel this way. Mental health evaluation completed. Dr. Canada recommends dc home with anger disorder. - Differential Dx/Clinical Impression Provider Diagnosis: Anger, Verbalizes suicidal thoughts Discharge - Sign-Out/Discharge Documenting (check all that apply): Patient Departure Patient Received Moderate/Deep Sedation with Procedure: No - Discharge Plan Condition: Good Disposition: HOME Referrals: Naresh Sharif NP [Primary Care Provider] - - Billing Disposition and Condition Condition: GOOD Disposition: Home
--- OUTSIDE RECORDS SUMMARY | 2018-09-09 15:23 | XMS REPORT | Continuity of Care Document ---
:1995 External Reference #:[id number] Author Name Bismark Adames Address [address] [place] [address] Care Team Providers Name Role Phone Basilio Nielsen III, M.D. Care Team Information Fractionating Still Operator Unavailable Payers Date Identification Numbers Payment Provider Subscriber Effective: 2004 Policy Number: [id number] Levar (Obed AGUILAR) Reinier Parekh PayID: [id number] [address] [address] [place] [address] Advance Directives Description No Information Available Problems Active Problems Provider Date Basic learning problem Aníbal Charles M.D. Onset: 03/12/2012 Attention deficit hyperactivity disorder Aníbal Charles M.D. Onset: 2011 Non-alcoholic fatty liver Aníbal Charles M.D. Onset: 03/05/2015 Obesity Basilio Nielsen III, M.D. Onset: 05/31/2018 Gastroesophageal reflux disease Basilio Nielsen III, M.D. Onset: 02/09/2017 Family History Date Family Member(s) Observation Comments Father in 2001 from brain tumor Social History Type Date Description Comments Sex Unknown Smoke-Free Home is smoke-free General Mother remarried. Mom, step dad, brother, sister, and cousin live at home Tobacco Use Start: Unknown Patient has never smoked Smoking Status Reviewed: 08/16/18 Patient has never smoked Allergies, Adverse Reactions, Alerts Active Allergies Reaction Severity Comments Date No Drug Allergies 02/12/2008 Medications Active Medications SIG Qnty Indications Ordering Provider Date Escitalopram Oxalate 1/2 tablet by 30tabs F41.9 Naresh Sharif, 2018 mouth once daily C.P.N.P 5mg Tablets for 1 week then increase to 1 tablet by mouth once daily for 10 days Hydroxyzine HCL 1 tablet by mouth 30tabs F41.9 Naresh Sharif, 2018 25mg every 6 hours as C.P.N.P Tablets needed for anxiety Onetouch Ultra 2 Use to check 1units R73.03 Naresh Sharif, 04/09/2018 blood sugar twice C.P.N.P w/Device Kit daily and as needed Fluticasone apply to affected 30gm L20.9 Naresh Sharif, 10/03/2017 Propionate area twice daily C.P.N.P 0.005% for 5 - 7 days Ointment Pantoprazole Sodium Take One Tablet 30tabs R07.9 Naresh Sharif, 2017 By Mouth Every C.P.N.P 40mg Tablets DR Day K21.9 Onetouch Ultra Blue use as directed 100units R73.03 Naresh Sharif, 12/2017 C.P.N.P Strips True Metrix Blood please use to test 100units Naresh Sharif, 2017 Glucosetest Strips blood glucose twice C.P.N.P daily Dx=R73.03 Strips Truedraw Lancing Use as directed 1units R73.03 Naresh Sharif, 2017 Device C.P.N.P Misc Metformin HCL ER take 4 tablets by 120tabs R73.03 Naresh Sharif, 2017 mouth at dinnertime C.P.N.P 500mg Tablets ER 24HR Vitamin D Take One Tablet By 30tabs Naresh Sharif, 04/29/2017 2000Unit Mouth Every Day C.P.N.P Tablets History Medications Acyclovir take one tablet 15tabs B00.1 Naresh Jacomeperez, 12/14/2017 - 400mg Tablets by mouth three C.P.N.P 12/19/2017 times a day for 5 days Mupirocin apply three 22gm B00.1 Naresh Sharif, 12/14/2017 - 2% Ointment times daily C.P.N.P 03/23/2018 Acyclovir apply 5 times 30gm B00.1 Naresh Sharif, 12/14/2017 - 5% Ointment daily as needed C.P.N.P 03/23/2018 for cold sores Azithromycin 2 today then 6tabs J20.9 Basilio Nielsen, 05/19/2017 - 250mg 1\\day x 4 days III, M.D. 05/24/2017 Tablets Pantoprazole Sodium Take One Tablet 30tabs R07.9 Naresh Sharif, 2017 - By Mouth Every C.P.N.P 03/23/[address] Day K21.9 Metformin HCL ER (Mod) Please take 1 60tabs R73.03 Naresh 05/02/2017 - tablet in the [facility], 05/02/2017 500mg Tablets ER 24HR evening once C.P.N.P daily for 2 weeks and then increase to two tablets once daily in the evening Onetouch Delica Use as directed 100units R73.03 Naresh 05/02/2017 - Lancets Fine 30G [facility], 05/02/2017 30G Misc C.P.N.P Onetouch Ultra Mini use as directed 1units R73.03 Naresh 05/02/2017 - [facility], 05/02/2017 w/Device Kit C.P.N.P True Metrix Go Blood use as directed 1units R73.03 Naresh 05/02/2017 - Glucose Meter [facility], 04/09/2018 w/Device C.P.N.P Kit Polyethylene Glycol 4-5 capfuls in 527gm K59.00 Henny Gil, 04/19/2017 - 3350 20 ounces of D.O. 04/26/2017 3350NF Powder Gatorade today then 1 cupful in liquid daily for 7 days Cephalexin 1 tab 3 times 30caps I88.9 Aníbalnancy Charles, 02/28/2017 - 500mg Capsules a day for 10 M.D. 03/10/2017 days Econazole Nitrate apply topically 85gm B35.4 Basilio Nielsen, 08/30/2016 - 1% once or twice III, M.D. 09/26/2016 Cream daily Sertraline HCL 1 by mouth Aníbal Charles, 06/30/2016 - 50mg every day M.D. 09/26/2016 Tablets Methylphenidate HCL ER 2 PO by mouth F90.1 Aníbal Charles, 06/30/2016 - each morning M.D. 09/26/2016 36mg Tablets ER 24HR Methylphenidate HCL ER 1 by mouth 30tabs F90.1 Aníbal Charles, 05/02/2016 - every day M.D. 06/30/2016 54mg Tablets ER Amoxicillin/Clavulanat 1 tablet twice 20tabs L04.0 Naresh 04/08/2016 - e Potassium daily for 10 [facility], 04/18/2016 875-125mg days C.P.N.P Tablets Lansoprazole Take One 30caps R07.9 Basilio CortezJan Morales, 02/23/2016 - 30mg Capsule By Ren ABREU 05/11/[address] Mouth Every Day K21.9 Naproxen 1 tablet by 30tabs M54.5 Naresh 10/05/2015 - 500mg Tablets mouth twice [facility], 10/12/2015 daily with C.P.N.P food Ciprodex 4 drops twice 7.500ml H60.8x1 Naresh 02/27/2015 - 0.3-0.1% daily for 5 - [facility], 03/06/2015 Suspension 7 days C.P.N.P Methylphenidate HCL ER 2 by mouth 60tabs F90.1 Aníbal Charles, 02/01/2013 - every day at M.D. 05/02/2016 36mg Tablets ER in the morning Clindamycin/Benzoyl apply bid to 50gm 706.1 Aníbal Charles, 02/01/2013 - Peroxide the face M.D. 04/02/2013 1-5% Gel Naproxen 1 po bid pc 14tabs 959.7 Richard 08/08/2012 - 500mg Tablets Demarco, 08/17/2012 M.D. Famotidine 1 po bid 60tabs 959.7 Richard 08/08/2012 - 20mg Tablets Demarco, 08/17/2012 M.D. Methylphenidate HCL ER 1 po qd 30tabs 314.01 Aníbal Charles, 11/17/2011 - M.D. 02/01/2013 54mg Tablets ER Lotrisone apply bid to 45gm Aníbal Robinsstephanie, 04/26/2011 - 1-0.05% Cream affected area M.D. 05/10/2011 Methylphenidate HCL ER 1 po qd 30tabs 314.01 Aníbal Robins, 04/22/2011 - M.DJan 11/17/2011 36mg Tablets ER Methylphenidate HCL ER 1 po at am 30tabs Naresh 03/19/2011 - [facility], 04/22/2011 27mg Tablets ER C.P.N.P Nexium 1 PO qd 30caps 530.81 Aníbal Send, 02/23/2011 - 20mg Capsules DR Mcclure 02/23/2011 Omeprazole 1 PO qd 30caps 530.81 [facility], 02/23/2011 - 20mg Capsules M.D. 04/24/2011 Mentlianet apply bid to 30gm 110.5 [facility], 02/16/2009 - 1% Cream the area M.D. 03/02/2009 Cefzil 2 TSP PO bid 200cc Shannan Umanzor, 05/18/2007 - 250mg/5 ML C.P.N.P. 05/28/2007 Suspension Keflex 1 po bid 20tabs 684 Shannan Umanzor, 02/13/2007 - 500mg Tablets C.P.N.P. 02/23/2007 Ibuprofen 4 TSP PO Q8H 240units 684 Shannan Umanzor, 02/13/2007 - 100mg/5 ML prn Fever C.P.N.P. 02/23/2007 Suspension Augmentin ES-600 1 and 1/2 tsp 150ml 382.9 [facility], 04/04/2006 - bid M.D. 04/14/2006 600mg;42.9mg/5ML Suspension Zithromax 8 ml day 1 30ml 461.9 [facility], 03/29/2006 - 200mg/5 ML M.D. 04/03/2006 Suspension 4 ml q d for days Vyvanse 1 capsule once Unknown - 70mg Capsules daily 11/28/2016 Medications Administered in Office Medication SIG Qnty Indications Ordering Provider Date TB Mary Test Basilio Peraza 11/12/1998 Injection Immunizations CPT Code Status Date Vaccine Lot # [id number] Given 05/18/2018 TdaP Immunization Age 7+ [id number] 60324 Given 05/18/2018 Flu Inj Quadrivalent .5ml Preserve Free [id number] 97646 Given 04/21/2017 Flu Inj Quadrivalent .5ml Preserve Free [id number] 69493 Given 01/20/2015 Flu Inj Quadrivalent .5ml Preserve Free [id number] 55832 Given 03/25/2014 Meningococcal A,C,Y,W135 (Menactra) Preservative [id number] Free 77200 Given 03/25/2014 Flu Mist Quadrivalent [id number] 54932 Given 10/29/2013 HPV 4 Gardasil 4 [id number] 47039 Given 03/18/2013 Flu Mist Quadrivalent [id number] 60681 Given 03/18/2013 HPV 4 Gardasil 4 [id number] 62117 Given 03/12/2012 HPV 4 Gardasil 4 [id number] 29074 Given 03/12/2012 Flu Vacc Nasal Mist Trivalent (FluMist) [id number] 31279 Given 02/23/2011 Flu Vacc Nasal Mist Trivalent (FluMist) [id number] 28494 Given 02/23/2011 Hepatitis A Vaccine Pediatric/Adolescent 2 Dose [id number] Schedule 54078 Given 02/17/2010 Flu Vacc Nasal Mist Trivalent (FluMist) [id number] 07532 Given 02/17/2010 Hepatitis A Vaccine Pediatric/Adolescent 2 Dose [id number] Schedule 60292 Given 02/16/2009 Meningococcal A,C,Y,W135 (Menactra) Preservative [id number] Free 55730 Given 02/16/2009 TdaP Immunization Age 7+ [id number] 27333 Given 02/16/2009 Flu Vacc Nasal Mist Trivalent (FluMist) [id number] 75922 Given 02/12/2008 Flu Vacc Nasal Mist Trivalent (FluMist) [id number] 56747 Given 02/12/2008 Varicella (Chicken Pox) Immunization [id number] 73502 Given 12/18/2001 Poliomyelitis Immunization 62156 Given 12/18/2001 MMR Virus Immunization 60414 Given 12/18/2001 DTaP Immunization under age 7 22836 Given 03/11/1999 DTaP & Hib Immunization 74541 Given 03/11/1999 Oral Poliovirus Immunization 72262 Given 11/12/1998 Varicella (Chicken Pox) Immunization 93767 Given 11/12/1998 MMR Virus Immunization 31381 Given 05/05/1998 DTaP Immunization under age 7 95380 Given 05/05/1998 Hib/Hep B Combination Vaccine 79756 Given 03/03/1998 Hib Immunization 12642 Given 03/03/1998 Poliomyelitis Immunization 43913 Given 03/03/1998 DTaP Immunization under age 7 12634 Given 01/05/1998 Hib/Hep B Combination Vaccine 66773 Given 01/05/1998 Poliomyelitis Immunization 24071 Given 01/05/1998 DTaP Immunization under age 7 47219 Given 1997 Hepatitis B Imm Age 0 to 19yr Vital Signs Date Vital Result Comment 08/16/2018 10:54am Weight 321.00 lb Weight 145.606 kg Body Temperature 98.3 F Heart Rate 83 /min BP Systolic 151 mmHg BP Diastolic 84 mmHg 05/31/2018 3:40pm Height 69.25 inches 5'9.25" Weight 324.00 lb Weight 146.966 kg Heart Rate 96 /min BP Systolic 143 mmHg BP Diastolic 82 mmHg BMI (Body Mass Index) 47.5 kg/m2 05/18/2018 9:51am Height 69 inches 5'9" Weight 328.00 lb Weight 148.781 kg Heart Rate 87 /min BP Systolic 141 mmHg BP Diastolic 86 mmHg BMI (Body Mass Index) 48.4 kg/m2 Right ear audiology results 40 db Left ear audiology results 40 db Left Visual Acuity Distance 20/20 Corrective Lenses Right Visual Acuity Distance 20/20 Corrective Lenses 03/23/2018 11:40am Weight 316.00 lb Weight 143.338 [...] Test Result H/L Range Note Laboratory test 08/10/2018 [facility] Glucose 117 mg/dL High 70-100 finding [address] [place] [address] [phone] Insulin Level 42.1 mcIU/mL High 2.0-16.0 Hemoglobin A1c (Glyco HGB) 7.0 % High 4.0-5.6 1 Lipid Profile 08/10/2018 [facility] Triglycerides 88 mg/dL 2 (Trig/Chol/HDL) [address] [place] [address] [phone] Cholesterol 159 mg/dL 3 HDL Cholesterol 34.6 mg/dL 4 LDL Cholesterol 107 mg/dL 5 Laboratory test 08/10/2018 [facility] Vitamin D Total 43.0 N 20-[address] 25(Oh) ng/[place] [address] [phone] Laboratory test 06/22/2018 [facility] Tissue <1.2 U/mL [address] [facility] [place] [address] AB [phone] Immunoglobulin A (Iga) 124 mg/dL 61 - 356 8 Laboratory test 06/21/2018 [facility] Helico Negative Negative 9, [address] [place] [address] Antigen- [phone] Stool CBC Auto Diff 06/20/2018 [facility] White Blood 8.8 10^3/uL N 3.5-10.[address] [place] [address] [phone] Red Blood Count 5.36 10^6/uL N 4.00-5.40 Hemoglobin 14.5 g/dL N 14.0-18.0 Hematocrit 44 % N 42-52 Mean Corpuscular Volume 81 fL N 80-94 Mean Corpuscular Hemoglobin 27 pg N 27-31 Mean Corpuscular HGB Conc 33 g/dL N 31-36 Red Cell Distribution Width 14 % N 10.5-15 Platelet Count 267 10^3/uL N 150-450 Mean Platelet Volume 8.7 fL N 7.4-10.4 Abs Neutrophils 5.3 10^3/uL N 1.5-7.7 Abs Lymphocytes 2.6 10^3/uL N 1.0-4.8 Abs Monocytes 0.6 10^3/uL N 0-0.8 Abs Eosinophils 0.2 10^3/uL N 0-0.6 Abs Basophils 0.1 10^3/uL N 0-0.2 Abs Nucleated RBC 0 10^3/uL Granulocyte % 60.1 % Lymphocyte % 29.2 % Monocyte % 6.9 % Eosinophil % 2.8 % Basophil % 1.0 % Nucleated Red Blood Cells % 0 Comp Metabolic Panel 06/20/2018 [facility] Sodium 139 mmol/L N 135-[address] [place] [address] [phone] Potassium 4.1 mmol/L N 3.5-5.0 Chloride 105 mmol/L N 101-111 Co2 Carbon Dioxide 25 mmol/L N 22-32 Anion Gap 9 mmol/L N 2-11 Glucose 107 mg/dL High 70-100 Blood Urea Nitrogen 13 mg/dL N 6-24 Creatinine 0.63 mg/dL Low 0.67-1.17 BUN/Creatinine Ratio 20.6 High 8-20 Calcium 9.1 mg/dL N 8.6-10.3 Total Protein 6.8 g/dL N 6.4-8.9 Albumin 4.2 g/dL N 3.2-5.2 Globulin 2.6 g/dL N 2-4 Albumin/Globulin Ratio 1.6 N 1-3 Total Bilirubin 0.40 mg/dL N 0.2-1.0 Alkaline Phosphatase 80 U/L N 34-104 Alt 119 U/L High 7-52 Ast 57 U/L High 13-39 Egfr Non- 162.4 >60 Egfr 196.5 >60 11 Laboratory test 06/20/2018 [facility] C Reactive 4.25 mg/L N < 8.[address] [place] [address] [phone] GGTP 24 U/L N 9-64.0 Immunoglobulin A (Iga) 127 mg/dL 61 - 356 12 Transglutaminase Igg 06/20/2018 [facility] Tissue <1.2 13 & Iga [address] Transglutaminase IgA U/[place] [address] Ab [phone] Tissue Transglutaminase IgG Ab 3.2 U/mL 14 Laboratory test 06/20/2018 [facility] Point of Care 129 mg/dL High 70-100 [address] [place] [address] [phone] Laboratory test 05/18/2018 [facility] Glucose 108 mg/dL High 70-100 [address] [place] [address] [phone] Insulin Level 58.1 mcIU/mL High 2.0-16.0 17 Hemoglobin A1c (Glyco HGB) 6.7 % High 4.0-5.6 18 Laboratory test 04/13/2018 [facility] Troponin-I (TnI) 0.01 ng/ mL <0.04 [address] [place] [address] [phone] Laboratory test 04/13/2018 [facility] B-Type 6 pg/mL <=[address] [place] [address] Peptide BNP [phone] Lactic Acid 1.2 mmol/L N 0.5-2.0 20 Urinalysis Profile 04/13/2018 [facility] Urine Color Yellow [address] [place] [address] [phone] Urine Appearance Clear Urine Specific Orting 1.023 N 1.010-1.030 Urine pH 7.0 N 5-9 Urine Urobilinogen Negative Negative Urine Ketones Negative Negative Urine Protein Negative Negative Urine Leukocytes Negative Negative Urine Blood Negative Negative Urine Nitrite Negative Negative Urine Bilirubin Negative Negative Urine Glucose Negative Negative CBC Auto Diff 04/13/2018 [facility] White Blood 8.6 10^3/uL N 3.5-10.[address] [place] [address] [phone] Red Blood Count 5.23 10^6/uL N 4.00-5.40 Hemoglobin 14.4 g/dL N 14.0-18.0 Hematocrit 43 % N 42-52 Mean Corpuscular Volume 82 fL N 80-94 Mean Corpuscular Hemoglobin 28 pg N 27-31 Mean Corpuscular HGB Conc 34 g/dL N 31-36 Red Cell Distribution Width 14 % N 10.5-15 Platelet Count 260 10^3/uL N 150-450 Mean Platelet Volume 8.3 fL N 7.4-10.4 Abs Neutrophils 5.5 10^3/uL N 1.5-7.7 Abs Lymphocytes 2.0 10^3/uL N 1.0-4.8 Abs Monocytes 0.8 10^3/uL N 0-0.8 Abs Eosinophils 0.1 10^3/uL N 0-0.6 Abs Basophils 0.1 10^3/uL N 0-0.2 Abs Nucleated RBC 0 10^3/uL Granulocyte % 64.6 % Lymphocyte % 23.9 % Monocyte % 9.1 % Eosinophil % 1.7 % Basophil % 0.7 % Nucleated Red Blood Cells % 0.1 Comp Metabolic Panel 04/13/2018 [facility] Sodium 139 mmol/L N 135-[address] [place] [address] [phone] Potassium 3.9 mmol/L N 3.5-5.0 Chloride 106 mmol/L N 101-111 Co2 Carbon Dioxide 26 mmol/L N 22-32 Anion Gap 7 mmol/L N 2-11 Glucose 126 mg/dL High 70-100 Blood Urea Nitrogen 10 mg/dL N 6-24 Creatinine 0.58 mg/dL Low 0.67-1.17 BUN/Creatinine Ratio 17.2 N 8-20 Calcium 9.4 mg/dL N 8.6-10.3 Total Protein 6.4 g/dL N 6.4-8.9 Albumin 4.0 g/dL N 3.2-5.2 Globulin 2.4 g/dL N 2-4 Albumin/Globulin Ratio 1.7 N 1-3 Total Bilirubin 0.30 mg/dL N 0.2-1.0 Alkaline Phosphatase 88 U/L N 34-104 Alt 119 U/L High 7-52 Ast 56 U/L High 13-39 Egfr Non- 178.6 >60 Egfr 216.1 >60 21 Laboratory test 04/13/2018 [facility] Creatine 203 U/L N 10- [address] [facility] Kinase(CK) [place] [address] [phone] Laboratory test 04/13/2018 [facility] TSH (Thyroid 1.25 N 0.34 -5.[address] [facility] Stim Horm) mcIU/[place] [address] [phone] Troponin-I (TnI) 0.01 ng/mL <0.04 22 CKMB 04/13/2018 [facility] CKMB ng/mL 3.3 ng/mL N 0.6-6.3 [address] [place] [address] [phone] Laboratory test 02/02/2018 [facility] Glucose 97 mg/dL N 70- 100 23 finding [address] [place] [address] [phone] Insulin Level 27.2 mcIU/mL High 2.0-16.0 24 Hemoglobin A1c (Glyco HGB) 6.1 % High 4.0-5.6 25 Comp Metabolic Panel 11/23/2017 [facility] Sodium 141 mmol/L N 135-145 [address] [place] [address] [phone] Potassium 4.1 mmol/L N 3.5-5.0 Chloride 104 [...] Egfr Non- 143.8 >60 Egfr 174.0 >60 26 CBC No Diff 11/23/2017 [facility] White Blood 10.9 10^3/uL High 3.5-10.[address] [place] [address] [phone] Red Blood Count 5.67 10^6/uL High 4.00-5.40 Hemoglobin 15.7 g/dL N 14.0-18.0 Hematocrit 46 % N 42-52 Mean Corpuscular Volume 82 fL N 80-94 Mean Corpuscular Hemoglobin 28 pg N 27-31 Mean Corpuscular HGB Conc 34 g/dL N 31-36 Red Cell Distribution Width 14 % N 10.5-15 Platelet Count 293 10^3/uL N 150-450 Mean Platelet Volume 8.0 um3 N 7.4-10.4 Laboratory test 11/23/2017 [facility] Erythrocyte Sed 7 mm/Hr N 0-[address] [place] [address] [phone] Urinalysis Profile 11/23/2017 [facility] Urine Color Yellow [address] [place] [address] [phone] Urine Appearance Cloudy Urine Specific Orting 1.019 N 1.010-1.030 Urine pH 7.0 N 5-9 Urine Urobilinogen Negative Negative Urine Ketones Negative Negative Urine Protein Negative Negative Urine Leukocytes Negative Negative Urine Blood Negative Negative Urine Nitrite Negative Negative Urine Bilirubin Negative Negative Urine Glucose Negative Negative Laboratory test 09/28/2017 [facility] Hemoglobin A1c 5.7 % High 4.0-5.6 27 finding 10 [facility] (Glyco HGB) [place] [address] [phone] Lipid Profile 09/28/2017 [facility] Triglycerides 72 28 (Trig/Chol/HDL) 10 [facility] mg/dL [place], [place] [phone] Cholesterol 136 mg/dL 29 HDL Cholesterol 30.6 mg/dL 30 LDL Cholesterol 91 mg/dL 31 Laboratory test 09/28/2017 [facility] Glucose 87 mg/dL N 70- 100 32 finding 10 [place] [address] [phone] Insulin Level 21.3 mcIU/mL High 2.0-16.0 33 CBC Auto 09/24/2017 [facility] White Blood 11.4 10^3/uL High 3.5-10.[address] [place] [address] [phone] Red Blood Count 5.32 10^6/uL N 4.0-5.4 [...] Red Blood Cells % 0 Laboratory test 09/24/2017 [facility] Lactic Acid 1.5 mmol/L N 0.5-2.0 34 finding [address] [place] [address] [phone] Comp Metabolic 09/24/2017 [facility] Sodium 140 mmol/L N 139- 145 Panel [address] [place] [address] [phone] Potassium 4.0 mmol/L N 3.5-5.0 Chloride 106 [...] Egfr Non- 142.9 >60 Egfr 183.8 >60 35 Type & Screen 09/24/2017 [facility] Patient Blood Type A Positive [facility] [place] [address] [phone] Antibody Screen NEGATIVE Urinalysis Profile 09/24/2017 [facility] Urine Color Yellow [facility] [place] [address] [phone] Urine Appearance Clear Urine Specific Orting 1.017 N 1.010-1.030 Urine pH 7.0 N 5-9 Urine Urobilinogen Positive Abnormal Negative Urine Ketones Negative Negative Urine Protein Negative Negative Urine Leukocytes Negative Negative Urine Blood Negative Negative Urine Nitrite Negative Negative Urine Bilirubin Negative Negative Urine Glucose Negative Negative CBC Auto Diff 07/25/2017 [facility] White Blood 9.8 10^3/uL N 3.5-10.[address] [place] [address] [phone] Red Blood Count 5.27 10^6/uL N 4.0-5.4 [...] Cells % 0 Comp Metabolic Panel 07/25/2017 [facility] Sodium 140 mmol/L N 139-[address] [place] [address] [phone] Chloride 105 mmol/L N 101-111 Co2 Carbon [...] Egfr Non- 140.6 >60 Egfr 180.9 >60 36 Potassium 3.8 mmol/L N 3.5-5.0 Anion Gap 9 mmol/L N 2-11 Ast 24 U/L N 13-39 Laboratory test finding 07/25/2017 [facility] Lipase 28 U/L N 11.0-82.[address] [place] [address] [phone] CRP High Sensitivity 2.09 mg/L 37 Laboratory test 06/29/2017 [facility] Hemoglobin A1c 5.7 % High 4.0-5.6 [address] (Glyco HGB) [place] [address] [phone] Insulin Level 39.9 mcIU/mL Abnormal 2.6 - 24.9 39 Vitamin D Total 25(Oh) 29.3 ng/mL N 20-50 40 Glucose 103 mg/dL High 70-100 41 CBC Auto Diff 04/26/2017 [facility] White Blood 10.0 10^3/uL N 3.5-10.[address] [place] [address] [phone] Red Blood Count 5.67 10^6/uL High 4.0-5.4 [...] Cells % 0 Comp Metabolic Panel 04/26/2017 [facility] Chloride 102 mmol/L N 101-[address] [place] [address] [phone] Co2 Carbon Dioxide 27 mmol/L N 22-32 [...] Egfr Non- 158.3 >60 Egfr 203.5 >60 42 Sodium 136 mmol/L N 133-145 Potassium 4.4 mmol/L N 3.5-5.0 Anion Gap 7 mmol/L N 2-11 Laboratory test 04/26/2017 [facility] Hemoglobin A1c 6.3 % High 4.0-5.6 43 finding 101 (Glyco HGB) [place] [address] [phone] Insulin Level 41.2 mcIU/mL Abnormal 2.6 - 24.9 44 Lipid Profile 04/26/2017 [facility] Triglycerides 106 mg/dL 45 (Trig/Chol/HDL) [address] [place] [address] [phone] Cholesterol 137 mg/dL 46 HDL Cholesterol 32.8 mg/dL 47 LDL Cholesterol 83 mg/dL 48 Laboratory test 04/26/2017 [facility] TSH (Thyroid 2.21 mcIU/mL N 0.34-5.60 finding [address] [place]) [place] [address] [phone] Vitamin D Total 25(Oh) 19.2 ng/mL Low 20-50 Laboratory test 03/04/2017 [facility] Magnesium 2.0 mg/dL N 1.9-2.[address] [place] [address] [phone] Creatine Kinase(CK) 201 U/L N 10-223 Troponin-I (TnI) 0.03 ng/mL <0.04 Myoglobin 44.0 ng/mL N 17.4-105.7 CKMB 03/04/2017 [facility] CKMB ng/mL 4.9 ng/mL N 0.6-6.[address] [place] [id number] [phone] Laboratory test 03/04/2017 [facility] B-Type 17 pg/mL [address] [place] [address] Peptide BNP [phone] Inr/Protime 03/04/2017 [facility] Inr 1.03 N 0.89-1.[address] [place], [place] [address] [phone] Laboratory test 03/04/2017 [facility] Partial Thrombo 29.7 N 26.0-36.[address] [place] [address] [phone] CBC Auto Diff 03/04/2017 [facility] White Blood 7.7 10^3/uL N 3.5-10.[address] [place] [address] [phone] Red Blood Count 5.51 10^6/uL High 4.0-5.4 [...] Blood Cells % 0.1 Laboratory test 03/04/2017 [facility] D Dimer < 200 N Less [address] Quantitative ng/mL Than 230 [place] [address] [phone] Comp Metabolic 03/04/2017 [facility] Sodium 134 mmol/L N 133- [address] [place] [address] [phone] Potassium 3.7 mmol/L N 3.5-5.0 Chloride 103 [...] Egfr Non- 167.1 >60 Egfr 214.9 >60 51 Laboratory test 03/04/2017 [facility] Lactic Acid 1.5 mmol/L N 0.5-2.0 [address] [place] [address] [phone] Laboratory test 03/04/2017 [facility] Troponin-I 0.04 ng/mL High <0.[address] (TnI) [place] [address] [phone] Xray 02/09/2017 [facility] Right negative [address] [place] [address] [phone] CBC Auto Diff 09/26/2016 [facility] White Blood 10.5 10^3/uL N 3.5-10.[address] [place] [address] [phone] Red Blood Count 5.50 10^6/uL High 4.0-5.4 [...] Blood Cells % 0.2 N Inr/Protime 09/26/2016 [facility] Inr 0.98 N 0.89-1.11 [address] [place] [address] [phone] Laboratory test 09/26/2016 [facility] Partial 32.9 seconds N 26.0-36.3 finding [address] [facility] [place] [address] PTT [phone] D Dimer Quantitative < 200 ng/mL N Less Than 230 54 B-Type Natriuretic Peptide BNP 28 pg/mL N 55 Lactic Acid 1.4 mmol/L N 0.5-2.0 56 Urinalysis Profile 09/26/2016 [facility] Urine Color Yellow N [address] [place] [address] [phone] Urine Appearance Cloudy N Urine Specific Orting 1.025 N 1.010-1.030 Urine pH 8.0 N [...] Absent N Absent Comp Metabolic Panel 09/26/2016 [facility] Sodium 138 mmol/L N 133-[address] [place] [address] [place] [address] [phone] Potassium 3.6 mmol/L N 3.5-5.0 Chloride 104 [...] 172.2 N >60 Egfr 221.4 N >60 57 Laboratory test 09/26/2016 [facility] Magnesium 2.0 mg/dL N 1.9-2.[address] [place] [address] [phone] Lipase 22 U/L N 11.0-82.0 Creatine Kinase(CK) 250 U/L High 10-223 C Reactive Protein 2.27 mg/L N < 5.00 58 Troponin-I (TnI) 0.01 ng/mL N <0.04 59 CKMB 09/26/2016 [facility] CKMB ng/mL 4.4 ng/mL N 0.6-6.[address] [place] [address] [phone] Laboratory test 09/26/2016 [facility] TSH 3.14 N 0.34-5.[address] (Thyroid mcIU/[place] [address] Stim Goia) [phone] CBC Auto Diff 06/23/2016 [facility] White Blood 10.4 N 3.5- 10.[address] Count 10^3/[place] [address] [phone] Red Blood Count 5.82 10^6/uL High 4.0-5.4 [...] Blood Cells % 0.1 N Inr/Protime 06/23/2016 [facility] Inr 1.04 N 0.89-1.[address] [place] [address] [phone] Laboratory test 06/23/2016 [facility] Partial 30.7 seconds N 26.0-36.[address] [place] [address] [phone] Lactic Acid 1.6 mmol/L N 0.5-2.0 60 Comp Metabolic Panel 06/23/2016 [facility] Sodium 137 mmol/L N 133-[address] [place] [address] [phone] Chloride 102 mmol/L N 101-111 Co2 Carbon [...] 160.0 N >60 Egfr 205.8 N >60 61 Potassium 3.9 mmol/L N 3.5-5.0 Anion Gap 8 mmol/L N 2-11 Ast 36 U/L N 13-39 Lipid Profile 06/23/2016 [facility] Triglycerides 114 mg/dL N 62 (Trig/Chol/HDL) [address] [place] [address] [phone] Cholesterol 141 mg/dL N 63 HDL Cholesterol 33.0 mg/dL N 64 LDL Cholesterol 85 mg/dL N 65 Laboratory test 06/23/2016 [facility] Troponin-I (TnI) 0.01 ng/ mL N <0.04 66 finding [address] [place] [address] [phone] Laboratory test 06/07/2016 [facility] .Strep A, Rapid Neg finding (012)- - .Flu Test in house Neg Laboratory test 04/29/2016 [facility] Potassium 3.9 mmol/L N 3.5-5.[address] [facility] [address] [phone] Ast Redraw 31 U/L N 13-39 CBC Auto Diff 03/21/2016 [facility] White Blood 10.0 10^3/uL N 3.5-10.[address] [place] [address] [phone] Red Blood Count 5.64 10^6/uL High 4.0-5.4 [...] Cells % 0.1 N Urinalysis Profile 03/21/2016 [facility] Urine Color Straw N [address] [place] [address] [phone] Urine Appearance Clear N Urine Specific Orting 1.009 Low 1.010-1.030 Urine pH 7.0 N 5-9 Urine Urobilinogen Negative N Negative Urine Ketones Negative N Negative Urine Protein Negative N Negative Urine Leukocytes Negative N Negative Urine Blood Negative N Negative Urine Nitrite Negative N Negative Urine Bilirubin Negative N Negative Urine Glucose Negative N Negative Urine Drug 03/21/2016 [facility] Amphetamine Ur None Detected N None Detect SCR ED & [address] [place] [place] [address] [phone] Barbiturates Urine Screen None Detected N None Detect Benzodiazepine Urine Screen None Detected N None Detect Urine Cannabinoids Screen None Detected N None Detect Urine Cocaine Screen None Detected N None Detect Urine Opiates Screen None Detected N None Detect Urine Phencyclidine Screen None Detected N None Detect 67 Comp Metabolic Panel 03/21/2016 [facility] Sodium 138 mmol/L N 133-[address] [place] [address] [phone] Potassium 3.6 mmol/L N 3.5-5.0 Chloride 104 [...] 165.9 N >60 Egfr 213.3 N >60 68 Laboratory test 03/21/2016 [facility] TSH (Thyroid 1.96 mcIU/mL N 0.34-5.[address] Stim [place]) [place] [address] [phone] Acetaminophen < 15 g/mL N 69 Alcohol < 10 mg/dL N <10 Salicylate < 2.50 mg/dL N <30 CBC Auto Diff 02/13/2016 [facility] White Blood 10.6 10^3/uL N 3.5-10.[address] [place] [address] [phone] Red Blood Count 5.51 10^6/uL High 4.0-5.4 [...] % 0 N Comp Metabolic Panel 02/13/2016 [facility] Sodium 135 mmol/L N 133-[address] [place] [address] [phone] Potassium 3.7 mmol/L N 3.5-5.0 Chloride 101 [...] 162.9 N >60 Egfr 209.5 N >60 70 Laboratory test 02/13/2016 [facility] Troponin-I (TnI) 0.01 ng/ mL N <0.[address] [place] [address] [phone] Magnesium 1.9 mg/dL N 1.9-2.7 CBC Auto Diff 12/21/2015 [facility] White Blood 10.2 10^3/uL N 3.5-10.[address] [place] [address] [phone] Red Blood Count 5.38 10^6/uL N 4.0-5.4 [...] Cells % 0.2 N Laboratory test 12/21/2015 [facility] Troponin-I 0.01 ng/mL N <0.03 [address] (TnI) [place] [address] [phone] Comp Metabolic 12/21/2015 [facility] Sodium 137 mmol/L N 133- [address] [place] [address] [phone] Potassium 3.7 mmol/L N 3.5-5.0 Chloride 104 [...] 162.9 N >60 Egfr 209.5 N >60 73 Laboratory test 12/21/2015 [facility] Creatine 173 U/L N 10- [address] Kinase(CK) [place] [address] [phone] CKMB 12/21/2015 [facility] CKMB ng/mL 4.3 ng/mL N 0.6-6.3 [address] [place] [address] [phone] Laboratory test 12/21/2015 [facility] Lactic Acid 0.7 mmol/L N 0.5-2.0 74 finding [address] [place] [address] [phone] Urinalysis 03/07/2015 [facility] Urine Color Yellow N Profile [address] [place] [address] [phone] Urine Appearance Cloudy N Urine Specific Orting 1.020 N 1.010-1.030 Urine pH 7.0 N 5-9 Urine Urobilinogen Positive Abnormal Negative Urine Ketones Negative N Negative Urine Protein Negative N Negative Urine Leukocytes Negative N Negative Urine Blood Negative N Negative Urine Nitrite Negative N Negative Urine Bilirubin Negative N Negative Urine Glucose Negative N Negative Comp Metabolic Panel 03/07/2015 [facility] Sodium 136 mmol/L N 133-145 [address] [place] [address] [phone] Chloride 103 mmol/L N 101-111 Co2 Carbon [...] N 7-52 Potassium TNP mmol/L N 3.5-5.0 75 Anion Gap TNP mmol/L N 2-11 Ast TNP U/L N 13-39 76 Laboratory test 03/07/2015 [facility] C Reactive 1.85 mg/L N < 5.00 [address] [place] [address] [phone] CBC Auto Diff 03/07/2015 [facility] White Blood 9.1 N 4.8- 10.[address] Count 10^3/uL [place], [place] [phone] Red Blood Count 5.66 10^6/uL High 4.0-5.4 [...] Cells % 0.1 N Laboratory test 03/07/2015 [facility] Erythrocyte Sed 11 mm/Hr N 0-[address] [place] [address] [phone] CBC Auto Diff 03/04/2015 [facility] White Blood 11.7 High 4.8- 10.[address] Count 10^3/[place] [address] [phone] Red Blood Count 5.36 10^6/uL N 4.0-5.4 [...] % 0.1 N Comp Metabolic Panel 03/04/2015 [facility] Sodium 137 mmol/L N 133-145 [address] [place] [address] [phone] Potassium 3.7 mmol/L N 3.5-5.0 Chloride 103 [...] 39 U/L N 13-39 Laboratory test 03/04/2015 [facility] Lipase 20 U/L N 11.0- 82.0 finding [address] [place] [address] [phone] Urinalysis Profile 03/04/2015 [facility] Urine Color Yellow N [address] [place] [address] [phone] Urine Appearance Clear N Urine Specific Orting 1.024 N 1.010-1.030 Urine pH 6.0 N 5-9 Urine Urobilinogen Negative N Negative Urine Ketones Negative N Negative Urine Protein Negative N Negative Urine Leukocytes Negative N Negative Urine Blood Negative N Negative Urine Nitrite Negative N Negative Urine Bilirubin Negative N Negative Urine Glucose Negative N Negative Laboratory test finding 06/26/2014 [facility] Throat Culture (Overnight) neg (407)- - Throat Culture Quick Strep neg CBC Auto Diff 05/03/2014 [facility] White Blood 8.2 10^3/uL N 4.8-10.[address] [place] [address] [phone] Red Blood Count 5.24 10^6/uL N 4.0-5.4 [...] % 0.1 N Comp Metabolic Panel 05/03/2014 [facility] Sodium 138 mmol/L N 133-145 [address] [place] [address] [phone] Potassium 3.9 mmol/L N 3.5-5.0 Chloride 107 [...] 16 U/L N 13-39 Laboratory test 05/03/2014 [facility] C Reactive 1.57 mg/L N < 5.00 [address] [place] [address] [phone] CBC Auto Diff 03/26/2014 [facility] White Blood 9.0 N 4.8- 10.[address] Count 10^3/[place] [address] [phone] Red Blood Count 5.33 10^6/uL N 4.0-5.4 [...] % 0.1 N Comp Metabolic Panel 03/26/2014 [facility] Sodium 136 mmol/L N 133-[address] [place] [address] [phone] Potassium 4.1 mmol/L N 3.5-5.0 Chloride 102 [...] 24 U/L N 13-39 Laboratory test 03/26/2014 [facility] Hemoglobin A1c 5.7 % N Less than [address] 6.0 [place] [address] [phone] Insulin Level 37.4 mcIU/mL Abnormal 2.6 - 24.9 80 CBC With 10/31/2013 [facility] White Blood 9.1 10^3/uL N 4.8- 10.8 Manual Diff [address] [place] [address] [phone] Red Blood Count 5.28 10^6/uL N 4.0-5.4 [...] Normal N Normal Comp Metabolic Panel 10/31/2013 [facility] Sodium 138 mmol/L N 133-[address] [place] [address] [phone] Potassium 4.3 mmol/L N 3.7-5.6 Chloride 103 [...] Ast 29 U/L N 13-39 Laboratory 10/31/2013 [facility] Insulin 25.5 Abnormal 2.6 - 81 test finding [address] Level mcIU/mL 24.9 [place] [address] [phone] Hemoglobin A1c 6.2 % High Less than 6.0 82 Lipid Profile 10/31/2013 [facility] Triglycerides 67 mg/dL N 83 (Trig/Chol/HDL) [address] [place] [address] [phone] Cholesterol 145 mg/dL N 84 HDL Cholesterol 38.1 mg/dL N 85 LDL Cholesterol 94 mg/dL N 86 Laboratory test 10/31/2013 [facility] TSH (Thyroid 1.75 IU/mL N 0.34-5.[address] [place] [address] Horm) [phone] CBC Auto Diff 07/29/2013 [facility] White Blood 9.0 4.8-10.[address] Count 10^3/[place] [address] [phone] Red Blood Count 5.42 10^6/uL High 4.0-5.4 [...] Blood Cells % 0.1 Comp Metabolic Panel 07/29/2013 [facility] Sodium 140 mmol/L 133-[address] [place], [place] [address] [phone] Potassium 3.9 mmol/L 3.7-5.6 Chloride 106 mmol/L [...] 26 U/L 7-52 Ast 20 U/L 13-39 Throat-Beta 02/11/2013 [facility] Throat Beta (SEE NOTE) [address] [place] [address] [phone] Laboratory test 08/08/2012 [facility] Erythrocyte Sed 15 mm/Hr High 0-[address] [place] [address] [phone] Lyme Disease Serology Negative Negative 88 CBC With 08/08/2012 [facility] White Blood 7.8 10^3/uL 4.8- 10.8 Manual Diff [address] [place] [address] [phone] Red Blood Count 5.18 10^6/uL 4.0-5.4 Hemoglobin [...] RBC Morphology Normal Normal Throat-Beta Strept 05/02/2012 [facility] Throat Beta (SEE NOTE) [address] [place] [address] [phone] Laboratory test 02/23/2011 [facility] .Hemoglobin in 14.2 finding (607)- - house Laboratory test 07/03/2010 [facility] Throat Culture neg finding (607)- - (Overnight) Throat Culture Quick Strep neg Laboratory test finding 02/12/2008 [facility] Hemoglobin 12.1 (607)- - Laboratory test finding 02/14/2007 [facility] .Throat Culture Quick neg (607)- - Strep .Throat Culture Overnight neg per sendek 1 Therapeutic target for the treatment of diabetes mellitus patients is <7% HBA1C, and in selective patients <6.0%. Please refer to [place] diabetic care guidelines for further information. 2 Desirable: <150 Borderline High: 150-199 High: 200-499 Very High: >500 3 Desirable: <200 Borderline High: 200-239 High: >239 4 Low: <40 Desirable: 40-60 High: >60 5 Desirable: <100 Near Optimal: 100-129 Borderline High: 130-159 High: 160-189 Very High: >189 6 Total 25-Hydroxyvitamin D2 and D3 (25-OH-VitD) <10 ng/mL (severe deficiency) 10-19 ng/mL (mild to moderate deficiency) 20-50 ng/mL (optimum levels) 51-80 ng/mL (increased risk of hypercalciuria) >80 ng/mL (toxicity possible) 7 REFERENCE VALUE <4.0 (Negative) Test Performed by: [facility] [employer] - [facility] [address] [place] [address] 8 Test Performed by: [facility] - [place] [address] [place] [address] 9 1401.@Sample frozen by [id number] at 1550 on 06/21/18. 10 Test Performed by: [facility] - [address] [address] 11 Because ethnic data is not always readily [...] 15-29 5 Kidney failure <15 (or dialysis) 12 Test Performed by: [facility] [employer] [facility] [place] [address] 13 REFERENCE VALUE <4.0 (Negative) 14 REFERENCE VALUE <6.0 (Negative) Test Performed by: [facility] [employer] [address] [place] [address] 15 National Sales Associate: [id number] FASTING 17 FASTING 18 Therapeutic target for the treatment of diabetes mellitus patients is <7% HBA1C, and in selective patients <6.0%. Please refer to [place] diabetic care guidelines for further information. 19 Troponin-I testing on Plasma Separator Tubes (PST) has a known false positive rate of 0.20-0.40%. All positive troponins reflex immediate secondary confirmatory testing. 20 [facility] Severe Sepsis and Septic Shock Management Bundle Measure requires all lactic acids initially measuring >2.0 mmol/L be repeated. 21 Because ethnic data is not always readily [...] 15-29 5 Kidney failure <15 (or dialysis) 22 Troponin-I testing on Plasma Separator Tubes (PST) has a known false positive rate of 0.20-0.40%. All positive troponins reflex immediate secondary confirmatory testing. 23 FASTING 24 FASTING 25 Therapeutic target for the treatment of diabetes mellitus patients is <7% HBA1C, and in selective patients <6.0%. Please refer to [place] diabetic care guidelines for further information. 26 Because ethnic data is not always [...] 5 Kidney failure <15 (or dialysis) 27 Therapeutic target for the treatment of diabetes mellitus patients is <7% HBA1C, and in selective patients <6.0%. Please refer to [employer] diabetic care guidelines for further information. 28 Desirable: <150 Borderline High: 150-199 High: 200-499 Very High: >500 29 Desirable: <200 Borderline High: 200-239 High: >239 30 Low: <40 Desirable: 40-60 High: >60 31 Desirable: <100 Near Optimal: 100-129 Borderline High: 130-159 High: 160-189 Very High: >189 32 FASTING 33 FASTING 34 [place] Severe Sepsis and Septic Shock Management Bundle [...] 5 Kidney failure <15 (or dialysis) 36 Because ethnic data is not always readily [...] 15-29 5 Kidney failure <15 (or dialysis) 37 Low risk: <1.00 Average risk: 1.00-3.00 High risk: >3.00 38 Therapeutic target for the treatment of diabetes mellitus patients is <7% HBA1C, and in selective patients <6.0%. Please refer to [employer] diabetic care guidelines for further information. 39 Test Performed by: [facility] [address] [place] [id number] 40 FASTING 41 FASTING 42 Because ethnic data is not always readily [...] 15-29 5 Kidney failure <15 (or dialysis) 43 Therapeutic target for the treatment of diabetes mellitus patients is <7% HBA1C, and in selective patients <6.0%. Please refer to [employer] diabetic care guidelines for further information. 44 Test Performed by: [facility] [address] [place] [address] 45 Desirable: <150 Borderline High: 150-199 High: 200-499 Very High: >500 46 Desirable: <200 Borderline High: 200-239 High: >239 47 Low: <40 Desirable: 40-60 High: >60 48 Desirable: <100 Near Optimal: 100-129 Borderline High: 130-159 High: 160-189 Very High: >189 49 >100 to <200 pg/mL: likely compensated congestive heart failure (CHF) 200 to 400 pg/mL: likely moderate CHF >400 pg/mL: likely moderate to severe CHF 50 Please note: The following may produce a false positive D Dimer test: - Rheumatoid factor greater than 60 IU/ml - Plasma hemoglobin greater than 0.05 gm/dl - Bilirubin greater than 50 mg/dl - Lipids greater than 1000 mg/dl - FDP greater than 20 ug/ml 51 Because ethnic data is not always [...] 5 Kidney failure <15 (or dialysis) 52 [facility] Severe Sepsis and Septic Shock Management Bundle Measure requires all lactic acids initially measuring >2.0 mmol/L be repeated. 53 Result TnIDx:0.04 Called to [id number] at: 16:25:38 by:[id number] Read back by: [id number] 54 Please note: The following may produce a false positive D Dimer test: - Rheumatoid factor greater than 60 IU/ml - Plasma hemoglobin greater than 0.05 gm/dl - Bilirubin greater than 50 mg/dl - Lipids greater than 1000 mg/dl - FDP greater than 20 ug/ml 55 >100 to <200 pg/mL: likely compensated congestive heart failure (CHF) 200 to 400 pg/mL: likely moderate CHF >400 pg/mL: likely moderate to severe CHF 56 [facility] Severe Sepsis and Septic Shock Management Bundle Measure requires all lactic acids initially measuring >2.0 mmol/L be repeated. 57 Because ethnic data is not always readily [...] 15-29 5 Kidney failure <15 (or dialysis) 58 Acute inflammation: >10.00 59 99th percentile=0.04 ng/mL Troponin results at [facility] and [facility] are not interchangeable. 60 [facility] Severe Sepsis and Septic Shock Management Bundle Measure requires all lactic acids initially measuring >2.0 mmol/L be repeated. 61 Because ethnic data is not always readily [...] 15-29 5 Kidney failure <15 (or dialysis) 62 Desirable <150 Borderline high 150-199 High 200-499 Very High >500 63 Desirable <200 Borderline high 200-239 High >239 64 Low <40 Desirable: 40-60 High: >60 65 Desirable: <100 mg/dL Near Optimal: 100-129 mg/dL Borderline High: 130-159 mg/dL High: 160-189 mg/dL Very High: >189 mg/dL 66 99th percentile=0.04 ng/mL Troponin results at [facility] and [facility] are not interchangeable. 67 The urine specimen was tested at the listed cutoffs: Drug class test level (ng/mL) Amphetamines 500 Barbiturates 200 Benzodiazepine metabolites 200 Cocaine metabolites 150 Cannabinoids 50 Opiates 300 Pcp 25 Specimen was received without chain of custody. Results should be used for medical purposes only. 68 Because ethnic data is not always readily [...] 15-29 5 Kidney failure <15 (or dialysis) 69 Therapeutic concentration: <50 ug/mL Toxic concentration: >120 ug/mL 70 Because ethnic data is not always readily [...] 15-29 5 Kidney failure <15 (or dialysis) 71 Reference Range and Interpretation: TnI (ng/mL) Interpretation Less Than 0.03 ng/mL Not supportive of diagnosis of MO 0.03 - 0.50 ng/mL Indeterminate: suggest serial studies if clinically indicated. Greater than 0.5 ng/mL Consistent with diagnosis of MO 72 Reference Range and Interpretation: TnI (ng/mL) Interpretation Less Than 0.03 ng/mL Not supportive of diagnosis of MO 0.03 - 0.50 ng/mL Indeterminate: suggest serial studies if clinically indicated. Greater than 0.5 ng/mL Consistent with diagnosis of MO 73 Because ethnic data is not always readily [...] 15-29 5 Kidney failure <15 (or dialysis) 74 [facility] Severe Sepsis and Septic Shock Management Bundle Measure requires all lactic acids initially measuring >2.0 mmol/L be repeated. 75 Unable to report test result due to hemolysis. 76 Unable to report test result due to hemolysis. 77 Acute inflammation: >10.00 78 Acute inflammation: >10.00 79 Therapeutic target for the treatment of diabetes Mellitus patients is <7% HBA1C, and in selective patients <6.0%.Please refer to [place] Diabetic care guidelines for further information. 80 Test Performed by: [place] [address] Software Implementation Specialist: Jefferson Olmos M.D. 81 Test Performed by: [place] [address] Software Implementation Specialist: Christiano Lainez III, M.D. 82 Therapeutic target for the treatment of diabetes Mellitus patients is <7% HBA1C, and in selective patients <6.0%.Please refer to [place] Diabetic care guidelines for further information. 83 Desirable <90 Borderline high 90-129 High >129 84 Desirable <170 Borderline high 170-199 High >199 85 Low <40 Borderline low 40-59 Desirable >59 86 Low <40 Borderline low 40-59 Desirable >59 mg/dL 87 RUN DATE: 02/14/13 [facility] LAB LIVE PAGE 1 RUN TIME: [address] [place] [address] Specimen Inquiry Name: RON ASHFORD : [address]: Giovana Driver MD Acct: [id number] Unit: [id number] AGE: 17 Location: [facility] Re02/11/13 SEX: M Status: DEP ER SPEC: [id number] GEOFF: 02/11/13-1947 [facility] DR: Rosalinda Farah NP REQ: [id number] RECD: 02/12/13 STATUS: SANDRA SUTTON DR: CHRIS Charles MD _ SOURCE: THROAT SPDESC: ORDERED: Throat Beta Str Procedure Result Verified Site Throat Beta Strep Culture Final 02/14/13- 0843 ML Negative For Group A Beta Streptococcus END OF REPORT * ML=Testing performed at Main Lab DEPARTMENT OF PATHOLOGY, [facility] [employer] [place], [place] [address] Lenny Smith M.D. Director [facility] Permit #[id number] 88 Serologic response to B. burgdorferi infection is not detected, but cannot rule out early infection during which low or undetectable antibody levels to B. burgdorferi may be present. If clinically indicated, a new serum specimen should be submitted in 7-14 days. Test Performed by: [address] [address] Software Implementation Specialist: Christiano Lainez III, M.D. 89 RUN DATE: 05/04/12 [facility] LAB LIVE PAGE 1 RUN TIME: [address] [place] [address] Specimen Inquiry Name: RON ASHFORD : [address]: Zuleyka AGULIAR,Theo Callaway Acct: [id number] Unit: [id number] AGE: 16 Location: [facility] Re05/02/12 SEX: M Status: DEP ER SPEC: [id number] GEOFF: 05/02/12 [facility] DR: Theo Gardiner MD REQ: [id number] RECD: 05/02/12 STATUS: SANDRA SUTTON DR: CHRIS Charles MD,Aníbal _ SOURCE: THROAT SPDESC: ORDERED: Throat Beta Str Procedure Result Verified Site Throat Beta Strep Culture Final 05/04/12- 0850 ML Negative For Group A Beta Streptococcus END OF REPORT * ML=Testing performed at Main Lab DEPARTMENT OF PATHOLOGY, [address] [place] [address] Lenny Smith M.D. Director [facility] Permit #[id number] Procedures Date Code Description Status 06/20/2018 65716 Endoscopy Upper GI Biopsy Completed 07/04/2017 18315 Remove Impact Cerumen irrigation only Completed 04/03/2003 95723 Nebulizer Treatment Completed 12/23/1998 35040 Nebulizer/[place] [address] For Completed Treatment 11/12/1998 33537 Remove Impacted Cerumen with instrumentation Completed Encounters Type Date Location Provider Dx Diagnosis Office Visit 08/16/2018 [facility] Naresh Sharif, F41.9 Anxiety disorder, 10:45a C.P.N.P unspecified M54.5 Low back pain Office Visit 05/31/2018 3:45p [facility] Basilio Nielsen, R10.11 Right upper III, M.D. quadrant pain K76.0 Fatty (change of) liver, not elsewhere classified K21.9 Gastro-esophageal reflux disease without esophagitis E66.9 Obesity, unspecified Office Visit 05/18/2018 9:30a [facility] Naresh Sharif, Z00.00 Encntr for C.P.N.P general adult medical exam w/o abnormal findings E66.9 Obesity, unspecified K21.9 Gastro-esophageal reflux disease without esophagitis K76.0 Fatty (change of) liver, not elsewhere classified R73.03 Prediabetes Office Visit 03/23/2018 11:45a [facility] Naresh Sharif, R51 Headache C.P.N.P Office Visit 02/02/2018 9:00a [facility] Office Hennymihai Gil, N50.812 Left testicular D.O. pain Office Visit 12/14/2017 4:15p [facility] Office Naresh Sharif, B00.1 Herpesviral C.P.N.P vesicular dermatitis Office Visit 12/11/2017 12:00p [facility] [facility] Naresh Sharif, R10.30 Lower abdominal C.P.N.P pain, unspecified L20.9 Atopic dermatitis, unspecified E66.9 Obesity, unspecified Office Visit 10/03/2017 9:00a [facility] Naersh Sharif, R73.03 Prediabetes C.P.N.P E66.9 Obesity, unspecified L20.9 Atopic dermatitis, unspecified Office Visit 07/28/2017 12:00p [facility] Office Naresh Sharif, N50.812 Left testicular C.P.N.P pain Office Visit 07/04/2017 9:00a [facility] Office Naresh Sharif, R73.03 Prediabetes C.P.N.P H61.21 Impacted cerumen, right ear Office Visit 05/19/2017 5:30p [facility] Office Basilio Nielsen, J20.9 Acute bronchitis, III, M.D. unspecified Office Visit 05/02/2017 8:15a [facility] Naresh R73.03 Prediabetes Sharkness, C.P.N.P Office Visit 04/21/2017 10:00a [facility] Office Naresh Z00.00 Encntr for general Sharkness, [...] shoulder, subs encntr Office Visit 02/01/2017 4:30p [facility] Office Aníbal Charles, R59.9 Enlarged lymph M.D. nodes, unspecified Office Visit 11/28/2016 11:45a [facility] Office Naresh S93.402A Sprain of Sharkness, unspecified C.P.N.P ligament of left ankle, init encntr Office Visit 09/26/2016 11:45a [facility] Office Naresh R06.00 Dyspnea, Sharkness, unspecified C.P.N.P R00.2 Palpitations Office Visit 08/30/2016 4:15p [facility] Office Basilio Preston B35.4 Tinea corporis Lambert, III, M.D. Office Visit 06/18/2016 9:30a [facility] Office Naresh S06.0x1D Concussion w Loc Sharkness, of 30 minutes or C.P.N.P less, subs Office Visit 06/07/2016 8:45a [facility] Office Naresh J02.9 Acute pharyngitis, Sharkness, unspecified C.P.N.P Office Visit 05/30/2016 9:00a [facility] Office Naresh S06.0x1A Concussion w Loc Sharkness, [...] Office Visit 03/24/2016 8:00a [facility] Basilio Nielsen, K21.9 Gastro- esophageal III, M.D. 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 Infections Acute Unspec Sites Office Visit 06/26/2014 1:15p [facility] Office Aníbal Charles, 314.01 Attention Deficit M.D. Disorder W/ Hyperactivity 465.9 URI Upper Respiratory Infections Acute Unspec Sites 278.00 Obesity Unspec BMI 30-39.9 Office Visit 03/25/2014 8:30a [facility] Aníbal Charles, V20.2 Routine Or M.D. Child Health Check 314.01 Attention Deficit Disorder W/ Hyperactivity V40.0 Learning Problem 278.00 Obesity Unspec BMI 30-39.9 V20.2 Routine Or Child Health Check Office Visit 10/29/2013 12:00p [facility] Office Naresh Sharif, 891.0 Open Wound Knee Leg [...] Acute Unspec Sites Office Visit 03/18/2013 3:00p [facility] Aníbal Charles, V20.2 Routine Infant Or M.D. Child Health Check 314.01 Attention Deficit Disorder W/ Hyperactivity 278.00 Obesity Unspec BMI 30-39.9 V40.0 Learning Problem V20.2 Routine Or Child Health Check Office Visit 02/01/2013 4:00p [facility] Aníbal Charles, 314.01 Attention Deficit M.D. Disorder W/ Hyperactivity 278.00 Obesity Unspec BMI 30-39.9 706.1 Acne Other Office Visit 01/15/2013 11:45a [facility] Naresh Sharif, 465.9 URI Upper C.P.N.P Respiratory Infections Acute Unspec Sites Office Visit 10/17/2012 8:45a [facility] Aníbal Charles, 314.01 Attention Deficit M.D. Disorder W/ Hyperactivity 278.00 Obesity Unspec BMI 30-39.9 Office Visit 08/09/2012 9:30a [facility] Office Basilio Nielsen, 959.7 Injury Knee Leg III, MJanD. Ankle & Foot Other & Unspec Office Visit 08/08/2012 11:45a [facility] Office Richard Pal 959.7 Injury Knee Leg M.D. Ankle & Foot Other & Unspec Office Visit 03/12/2012 11:30a [facility] Aníbal Charles M.D. V20.2 Routine Infant Or Child Health Check 314.01 Attention Deficit Disorder W/ Hyperactivity V40.0 Learning Problem 278.00 Obesity Unspec BMI 30-39.9 Office Visit 01/19/2012 12:45p [facility] Office Naresh Sharif, 465.9 URI Upper C.P.N.P Respiratory Infections Acute Unspec Sites Office Visit 11/17/2011 11:00a [facility] Office Aníbal Charles, 314.01 Attention Deficit M.D. Disorder W/ Hyperactivity 278.00 Obesity Unspec BMI 30-39.9 V40.0 Learning Problem Office Visit 09/13/2011 4:00p [facility] Office Naresh Sharif, 850.0 Concussion W/ No C.P.N.P Loss Of Consciousness Office Visit 05/25/2011 9:00a [facility] Office Aníbal Charles, 314.01 Attention Deficit M.D. Disorder W/ Hyperactivity 278.00 Obesity Unspec BMI 30-39.9 V40.0 Learning Problem Office Visit 04/22/2011 2:15p [facility] Office Aníbal Charles 314.01 Attention Deficit M.D. Disorder W/ Hyperactivity Office Visit 02/23/2011 11:00a [facility] Aníbal Charles, V20.2 Routine Infant Or M.D. Child Health Check V40.0 Learning Problem 278.00 Obesity Unspec BMI 30-39.9 530.81 Esophageal Reflux Office Visit 07/08/2010 1:00p [facility] Aníbal Charles, 530.81 Esophageal Reflux M.D. Office Visit 07/03/2010 10:30a [facility] Henny Gil, 462 Pharyngitis Acute D.O. 474.10 Hypertrophy Tonsils W/ Adenoids Office Visit 02/17/2010 11:30a [facility] Aníbal Charles, V20.2 Routine Infant Or M.D. Child Health Check 278.02 Overweight BMI 25-29.9 V40.0 Learning Problem 474.11 Hypertrophy Tonsils Alone Office Visit 2009 11:30a [facility] Henny Jeffery, V41.1 Eye Problem Other D.O. Office Visit 02/16/2009 3:30p [facility] Aníbal Charles, V20.2 Routine Infant [...] R.P.A.C. Office Visit 07/05/2004 9:30a [facility] Henny Gil, 786.2 Cough D.O. Office Visit 06/29/2004 9:45a [facility] Kenisha Del Cid, 789.00 Pain Abdominal R.P.A.C. Unspec Site Office Visit 05/17/2004 11:00a [facility] Aníbal Charles, 519.1 Trachea & Bronchus M.D. Other Diseases Not Class Elsewhere 465.9 URI Upper Respiratory Infections Acute Unspec Sites Office Visit 04/07/2004 9:15a [facility] Henny Gil, 558.9 Gastroenteritis & D.O. Colitis Noninfectious [...] Sites Office Visit 01/14/2003 2:15p [facility] Henny Gil, V20.2 Routine Or D.O. Child Health Check Office Visit [...] Visit 04/04/2002 12:00p [facility] Kenisha Del Cid, 382.9 Otitis Media Unspec R.P.A.C. Office Visit 03/11/2002 2:15p [facility] Kenisha Del Cid, 780.6 Fever R.P.A.C. Office Visit 02/11/2002 12:00p [facility] Richard 786.2 Cough Demarco M.D. Office Visit 02/08/2002 3:30p [facility] Richard 461.9 Sinusitis Acute Demarco, Unspec M.D. Office Visit 07/10/2001 2:30p [facility] Aníbal Melvin, 382.9 Otitis Media Unspec M.D. Office Visit 06/20/2001 10:15a [facility] Basilio Nielsen III, M.D. Office Visit 11/07/2000 2:30p [facility] Zaira Stack M.D. Office Visit 09/26/2000 2:15p [facility] Office Zaira Stack M.D. Office Visit 05/29/2000 12:15p [facility] Office Shannan Umanzor, 487.1 Influenza w/other C.P.N.P. respiratory manifestations Plan of Treatment Future Appointment(s):09/21/2018 9:15 am - Siria AdamesPJanN.P at [facility] Kmxulr7608/16/2018 - Esther AdamesPF41.9 Anxiety disorder, unspecifiedNew Medication:Escitalopram Oxalate 5 mg - 1/2 tablet by mouth once daily for 1 week then increase to 1 tablet by mouth once daily for 10 daysHydroxyzine HCL 25 mg - 1 tablet by mouth every 6 hours as needed for anxietyComments:Discussed risks of SSRI medications including risk for suicidal ideation as well as utilizing crisisservices or the emergency room for any concern regarding personal safety or the safety of othersFollow up:In 1 [id number] Low back painNew Xrays:Spine Lumbar, Ordered: 08/16/18Spine Thoracic , Ordered: 04/25/19Comments:We will call with x-ray results when available. If normal, will refer to physical therapy
[2018-09-09 15:32] LABS: ABS Basophils 0.1 10^3/ul (0-0.2); ABS Eosinophils 0.2 10^3/ul (0-0.6); ABS Lymphocytes 2.7 10^3/ul (1.0-4.8); ABS Neutrophils 7.4 10^3/ul (1.5-7.7); Eosinophil % 1.9 %; Hematocrit 46 % (42-52); Hemoglobin 15.3 g/dL (14.0-18.0); Lymphocyte % 23.7 %; Mean Corpuscular HGB Conc 33 g/dL (31-36); Mean Corpuscular Hemoglobin 27 pg (27-31); Mean Corpuscular Volume 83 fL (80-94); Mean Platelet Volume 8.5 fL (7.4-10.4); Nucleated Red Blood Cells % 0.2; Platelet Count 279 10^3/uL (150-450); Red Blood Count 5.63 10^6 /uL (4.18-5.48); Red Cell Distribution Width 14 % (10.5-15); White Blood Count 11.4 10^3/uL (3.5-10.8)
[2018-09-09 15:42] LABS: Urine Appearance Cloudy; Urine Bacteria Absent (Absent); Urine Bilirubin Negative (Negative); Urine Blood Negative (Negative); Urine Color Yellow; Urine Glucose Negative (Negative); Urine Ketones Negative (Negative); Urine Nitrite Negative (Negative); Urine Protein 1+(30 mg/dL) (Negative); Urine Red Blood Cell Trace(0-2/hpf) (Absent); Urine Specific Gravity 1.024 (1.010-1.030); Urine Urobilinogen Negative (Negative); Urine White Blood Cell Trace(0-5/hpf) (Absent)
[2018-09-09 15:51] LABS: ALT 123 U/L (7-52); AST 63 U/L (13-39); Albumin 4.5 g/dL (3.2-5.2); Albumin/Globulin Ratio 1.7 (1-3); Alkaline Phosphatase 100 U/L (34-104); Anion Gap 8 mmol/L (2-11); BUN/Creatinine Ratio 15.1 (8-20); Blood Urea Nitrogen 11 mg/dL (6-24); CO2 Carbon Dioxide 29 mmol/L (22-32); Chloride 104 mmol/L (101-111); EGFR African American 165.7 (>60); Globulin 2.6 g/dL (2-4); Glucose 93 mg/dL (70-100); Potassium 4.3 mmol/L (3.5-5.0); Sodium 141 mmol/L (135-145); Total Protein 7.1 g/dL (6.4-8.9)
[2018-09-09 15:57] LABS: Urine Benzodiazepine Screen None Detected (None Detect); Urine Opiates Screen None Detected (None Detect)
[2018-09-09 16:06] LABS: Acetaminophen < 15 mcg/mL; Alcohol < 10 mg/dL (<10); Salicylate < 2.50 mg/dL (<30)
[2018-09-09 16:40] VITALS: BP 121/75
== END 2018-09-09 16:39 | disposition home or self-care (01) ==
LOC: ED 14:29
DX: R45.4 Irritability and anger (principal); R45.851 Suicidal ideations; K21.9 Gastro-esophageal reflux disease without esophagitis; E11.9 Type 2 diabetes mellitus without complications; Z79.84 Long term (current) use of oral hypoglycemic drugs
CPT/HCPCS: 36415; 80053; 80307; 80320; 80329; 81003; 81015; 84443; 85025; 87086; 99284; G0480

== ENCOUNTER 2018-10-27 20:45 | Emergency (ER) | payer MEDICARE, OTHER ==
--- OUTSIDE RECORDS SUMMARY | 2018-10-27 21:07 | XMS REPORT | Continuity of Care Document ---
:1995 External Reference #:[id number] Author Name Navya Bliss Care Team Providers Name Role Phone Naresh Sharif NP Primary Care Physician Unavailable Payers Date Identification Numbers Payment Provider Subscriber Effective: 2016 Policy Number: [id number] Cristobal/[employer] Ron Ashford PayID: [id number] [address] [address] [place] [address] Problems Active Problems Provider Date Palpitations Robby Childress DO [facility] Onset: 10/06/2016 Family History Date Family Member(s) Observation Comments General Diabetes General Heart Disease General Cancer General Hypertension Father due to Brain tumor () - age 37yrs Father Diabetes Father Hypertension Father Brain tumors Mother Palpitations Siblings 6 5 brothers- brother from Melanoma cancer and renal failure. Bipolar, anxiety and drug addiction in remaining brothers. Social History Type Date Description Comments Sex Unknown Marital Status Single Lives With Family Occupation Student Tobacco Use Start: Unknown Never Smoked Cigarettes Smoking Status Reviewed: 10/04/18 Never Smoked Cigarettes ETOH Use Occasionally consumes alcohol Tobacco Use Start: Unknown Patient has never smoked Recreational Drug Use Current Drug User Recreational Drug Use Regularly uses Marijuana Exercise Type/Frequency Exercises regularly walking , working outside, basketball- daily for approx 60 minutes Allergies, Adverse Reactions, Alerts Active Allergies Reaction Severity Comments Date Bee Sting 10/06/2016 Inactive Allergies NKDA 04/02/2013 Medications Active Medications SIG Qnty Indications Ordering Provider Date Metformin HCL ER 2 tablets by 60tabs Fredis Jensen MD 10/04/2018 750mg mouth every day Tablets ER 24HR at bedtime Pioglitazone HCL take 15mg once 30tabs E11.65 Fredis Jensen MD 10/04/2018 15mg daily Tablets True Metrix Blood test blood 50units E11.65 Fredis Jensen MD 10/04/2018 Glucosetest Strips glucose once daily in the Strips morning Lancet Device use once daily 50units E11.65 Fredis Jensen MD 10/04/2018 Misc in the morning Pantoprazole Sodium 1 by mouth every Unknown day 40mg Tablets DR Hernandez Ultra Blue test twice a day Unknown and as needed Strips Hydroxyzine HCL 1 tablets by Unknown 25mg mouth every 6-8 Tablets hours as needed for anxiety Escitalopram Oxalate 1 by mouth every Unknown day 10mg Tablets Vitamin D3 once daily Naresh Sharif 2000Unit CATHRYN Bacon Capsules Ibuprofen as needed Unknown 200mg Tablets History Medications No Active Medications Unknown 02/15/2016 - 02/15/2016 Tramadol HCL bid prn 12tabs Oscar Molina, 04/02/2013 - 50mg Tablets M.D. 08/26/2014 Methylphenidate HCL ER 1 po daily Unknown - 72mg 10/06/2016 Ibuprofen Unknown - 02/14/2016 Vyvanse once a day in Unknown - 70mg Capsules the morning Unknown Lansoprazole 1 daily Basilio Nielsen, - 30mg Capsules DR AGUILAR 10/01/2018 Metformin HCL ER 2 tablets in the [facility], - 500mg Tablets morning and 2 Naresh Bacon NP 10/04/2018 ER 24HR tablets at night Vital Signs Date Vital Result Comment 10/04/2018 12:02pm Height 71 inches 5'11" Weight 318.00 lb w/ o shoes Heart Rate 66 /min BP Systolic Sitting 135 mmHg BP Diastolic Sitting 78 mmHg BMI (Body Mass Index) 44.3 kg/m2 07/27/2017 12:58pm Height 71 inches 5'11" Weight 295.00 lb Heart Rate 76 /min BP Systolic 128 mmHg BP Diastolic 84 mmHg Respiratory Rate 20 /min Body Temperature 97.9 F BMI (Body Mass Index) 41.1 kg/m2 Height Percentile 69 % Weight Percentile >97th 12/06/2016 1:23pm Height 69 inches 5'9" Weight 286.00 lb BP Systolic 126 mmHg BP Diastolic 64 mmHg Respiratory Rate 18 /min Body Temperature 98.7 F Pain Level 6 BMI (Body Mass Index) 42.2 kg/m2 10/11/2016 8:09am Height 69 inches 5'9" Weight 286.50 lb [...] Percentile 43 % Weight Percentile >97th 10/06/2016 9:34am Height 69 inches 5'9" Weight 288.00 lb [...] Percentile 43 % Weight Percentile >97th 02/15/2016 8:41am Height 69 inches 5'9" Weight 278.00 lb [...] Percentile 44 % Weight Percentile >97th 09/10/2014 1:52pm Height 69 inches 5'9" Weight 249.00 lb Heart Rate 79 /min BP Systolic 128 mmHg BP Diastolic 72 mmHg BMI (Body Mass Index) 36.8 kg/m2 Blood Pressure Percentile 80 % Height Percentile 51 % Weight Percentile >97th 04/02/2013 2:29pm Height 66 inches 5'6" Weight 196.00 lb Heart Rate 66 /min BP Systolic 138 mmHg BP Diastolic 64 mmHg BMI (Body Mass Index) 31.6 kg/m2 Blood Pressure Percentile 98 % Height Percentile 31 % Weight Percentile >97th Procedures Date Code Description Status 10/10/2016 58679 Holter Monitor Review (24 hr)dr review & interp only Completed 10/07/2016 48267 ECG Monitor/Recording W/Visual Superimposition Scanning Completed 10/06/2016 14582 EKG Tracing & Interpretation Completed 03/22/2016 84278 EEG Recording Awake & Drowsy Completed 02/15/2016 95539 EKG Tracing & Interpretation Completed 04/02/2013 32240 Rad Exam; Foot Comp Completed Encounters Type Date Location Provider Dx Diagnosis Office Visit 07/27/2017 Surgical Robby Talavera, N50.82 Scrotal pain 1:00p [facility] , FACS Office Visit 12/06/2016 Orthopedic Nilton Goodson S90.32xA Contusion of left 1:30p [facility] Mock MD foot, initial encounter S93.402A Sprain of unspecified ligament of left ankle, init encntr Office Visit 10/11/2016 [facility] Caleb Robison R00.2 Palpitations 8:40a [facility] DO [place] FACC Office Visit 10/06/2016 [facility] Caleb Robison R00.2 Palpitations 10:20a [facility] [place] DO FACC Office Visit 06/23/2016 [facility] Louis Robison R55 Syncope and 1:10p Clinic cuca Dupont M.D. R20.0 Anesthesia of skin Office Visit 02/15/2016 9:00a [facility] Twan Keyes R07.9 Chest pain, [facility] [place], unspecified FACC, FSCAI R00.2 Palpitations Office Visit 09/10/2014 1:30p Orthopedic Henry Stuart, 826.0 FX Phalanges [facility] Navarro One Or More C.M.A. Closed Office Visit 04/30/2013 2:00p Orthopedic Oscar 845.00 [facility] Molina Strains Ankle C.M.A. Unspec Site Office Visit 04/02/2013 2:45p [facility] Oscar 845.00 [facility] Strains Ankle C.M.A. Unspec Site Plan of Treatment Future Appointment(s):01/04/2019 11:40 am - Fredis Jensen MD at [facility]12/03/2018 8:30 am - Nyasia Arvizu MD at [facility]10/04/2018 - Fredis Jensen MDE11.65 Type 2 diabetes mellitus with hyperglycemiaNew Medication:Pioglitazone HCL 15 mg - take 15mg once dailyTrue Metrix Blood Glucosetest Strips - test blood glucose once daily in the morningLancet Device - use once daily in the morningFollow up:3 monthhsInstructions:1. Change metformin ER 1500mg at bedtime. 2. Start pioglitazone 15mg once daily in the morning. 3. Check first morning blood sugar every day -- goal is less than 120. 4. Return in 3 months for a follow-up.E78.5 Hyperlipidemia, [id number] Body mass index (BMI) 40.0-44.9, adult
== END 2018-10-27 21:33 | disposition left against medical advice (07) ==
LOC: UCCORT 20:45
DX: R05 Cough (principal); J02.9 Acute pharyngitis, unspecified; R09.81 Nasal congestion; H93.90 Unspecified disorder of ear, unspecified ear; Z53.21 Procedure and treatment not carried out due to patient leaving prior to being seen by health care provider